=== PATIENT | female | born 1935 | race Caucasian/White ===

== ENCOUNTER → 2018-03-08 12:11 | Outpatient (CLI) | payer MEDICARE ==
[~2018-03-08 12:11] MED LIST: BAYER CHEWABLE81 MG PO; CARTIA XT120 MG PO; COMBIGAN OPHT DR5 ML EACH EYE; FUROSEMIDE20 MG PO; K-TAB10 MEQ PO; MULTI-DAY VITAM1 TAB PO; PACERONE200 MG PO; PLAVIX75 MG PO; PRINIVIL20 MG PO; TRUSOPT 2 % OPT10 ML EACH EYE; XALATAN 0.0052.5 ML EACH EYE
[2018-03-11 10:50] VITALS: BMI 21.6
== END | disposition home or self-care (01) ==
LOC: D.CT 12:00
DX: R79.1 Abnormal coagulation profile (principal)

== ENCOUNTER → 2018-03-11 09:37 | Outpatient (CLI) | payer MEDICARE ==
[~2018-03-11] VITALS: Ht 165.1 cm; Wt 59.1 kg
--- NOTE | ~2018-03-11 | OP ---
PATIENT NAME: ALEN MCKINLEY MEDICAL RECORD: [id number] :33 LOCATION:D.CAT ADMISSION DATE: SURGEON: SILAS COLES MD DATE OF OPERATION: 03/11/2018 PROCEDURES: 1. PTCA stent LAD. 2. Left heart catheterization. 3. Selective coronary angiography. 4. Left ventriculogram. INDICATION: Angina and coronary artery disease. PROCEDURE IN DETAIL: After informed consent was obtained and after a detailed description of the risks, benefits as well as alternative therapies, the patient elected to proceed with angiogram and angioplasty. The right femoral area was prepped and draped in normal sterile fashion. Right femoral artery was cannulated via modified Seldinger technique with placement of 6-Romansh sheath. All catheters exchanged through this sheath. FINDINGS: Left ventriculogram was performed in standard 30-degree REED view, reveals good cardiac wall motion throughout all segments. Overall ejection fraction estimated at 50%. SELECTIVE CORONARY ANGIOGRAPHY: 1. Left main is with no significant angiographic disease. 2. Left anterior descending has 80% stenosis in mid vessel. 3. Left circumflex has moderate irregularities, but no flow-limiting stenosis. 4. Right coronary artery has moderate irregularities, but no flow-limiting stenosis. PTCA STENT OF THE LAD: The stent used was a 2.5 x 14 mm Integrity. Result was 0% residual stenosis. OVERALL IMPRESSION: Successful percutaneous transluminal coronary angioplasty stent of the left anterior descending going from 80% initial stenosis to 0% residual. TRANSINT:[id number] Voice Confirmation ID: [id number] DOCUMENT ID: [id number] SILAS COLES MD at 1025 CC: [id number] DICTATION DATE: 03/11/18 1257 RECTIFICATION PRINTER: 03/11/18 1304 DEP CLI 03/11/18 [place] [address]
--- NOTE | ~2018-03-11 | HEMODYNAMI ---
PATIENT:ALEN MCKINLEY MEDICAL RECORD: [id number] : 33 LOCATION:DFLAKITA ADMISSION DATE: 03/11/18 Generatedon:03/11/201813:01 Patient name: ALEN MCKINLEY Patient #: [id number] SSN: : 1935 Date of study: 03/11/2018 Page: Of Hemodynamic Procedure Report Patient Data Patient Demographics Procedure consent was obtained First Name: ALEN Gender: Female Last Name: ARLEN : 1935 [facility] Initial: GABY Age: 82 year(s) Patient #: [id number] Race: Unknown Additional ID: [id number] Contact details [address]: [address] [place] [address] State: [place] City: [place] Zip code: [address] Admission Admission Data Admission Date: 03/11/2018 Admission Time: 9:37 Lab Results Lab Result Date: 03/11/2018 Lab Result Time: 0:00 Biochemistry Name Units Result Min Max BUN mg/dl 16 --(---*)-- 7 18 Creatinine mg/dl 0.8 --(-*--)-- 0.6 1.3 CBC Name Units Result Min Max Hemoglobin g/dl 12.4 *-(----)-- 13.5 17.5 Procedure Procedure Types Cath Procedure Diagnostic Procedure [facility] w/Coronaries Sedation Charges Moderate Sedation up to 15 minutes PCI Procedure Coronary Stent Coronary Stent Initial Procedure Description Procedure Date Procedure Date: 03/11/2018 Procedure Start Time: 12:34 Procedure End Time: 12:57 Procedure Staff Name Function Alverto Kelly MD Performing Physician Marquis Stein RN Handicapped Teacher Valentina Thorne RT Monitor Kayleigh Smith RT Scrub Jessica Rm RN Nurse Tom Fung RT Handicapped Teacher Procedure Data Cath Procedure Fluoroscopy Diagnostic fluoroscopy Total fluoroscopy Time: 8.4 time: 8.4 min min Diagnostic fluoroscopy Total fluoroscopy dose: dose: 1130 mGy 1130 mGy Contrast Material Contrast Material Type Amount (ml) Isovue 300 146 Entry Location Entry Primary Successful Side Size Upsize Upsize Entry Closure Ledesma ccessful Closure Location (Fr) 1 (Fr) 2 (Fr) Remarks Device Remarks Radial Right 6 Fr Mechanical artery Short Compression Femoral Right 6 Fr Exoseal artery Short Estimated blood loss: 5 ml Diagnostic catheters Device Type Used For End Catheter Placement DIAGNOSTIC Hondo 110cm 5 Multi-vessel Fr catheter ([id number]) Angiography Procedure Complications No complications Procedure Medications Medication Administration Route Dosage Oxygen etCO2 Nasal cannula 2 l/min Lidocaine 2% added to field 20 Heparin Flush Bag added to field 2 bags (1000units/500ml NS) 0.9% NaCl I.V. 100 ml/hr Versed I.V. 0.5 mg Fentanyl I.V. 25 mcg Radial Cocktail I.A. 1 syringe (Verapomil 2mg/Nitro 400mcg/Heparin 1500units) Heparin Bolus I.V. 4000 units Integrilin (Bolus I.V. 5 ml 2mg/ml) Plavix P.O. 600 mg Hemodynamics Rest HGB: 12.4 (g/dl) Heart Rate: 97 (bpm) Snapshots Pre Cath Intra NCS Post Cath Vital Signs Time Heart Resp SPO2 etCO2 NIBP (mmHg) Rhythm Pain Sedation Rate (ipm) (%) (mmHg) Status Level (bpm) 12:20:41 100 34 89 0 164/106(130) A-Fib 0 (11) 10(A) , No pain 12:24:49 101 18 91 24.1 161/115(135) A-Fib 0 (11) 10(A) , No pain 12:28:57 88 26 96 0 158/101(139) A-Fib 0 (11) 10(A) , No pain 12:33:03 97 20 94 0.7 152/97(130) A-Fib 0 (11) 9(A) , No pain 12:37:13 84 20 92 0 137/79(115) A-Fib 0 (11) 9(A) , No pain 12:41:17 87 18 92 0 128/84(102) A-Fib 0 (11) 9(A) , No pain 12:45:18 82 18 92 0 132/82(114) A-Fib 0 (11) 9(A) , No pain 12:49:18 86 20 92 0 134/87(111) A-Fib 0 (11) 9(A) , No pain 12:53:20 84 21 93 0 132/80(104) A-Fib 0 (11) 9(A) , No pain 12:57:21 89 17 92 0 139/85(96) A-Fib 0 (11) 10(A) , No pain Medications Time Medication Route Dose Verified Delivered Reason Not es Effectiveness by by 12:19:51 Oxygen etCO2 2 l/min Alverto Lopez used for Nasal Leticia Rm RN procedure cannula 12:19:59 Lidocaine 2% added 20ml Alverto Del Toro for local to vial Leticia Kelly MD anesthetic field 12:20:04 Heparin Flush added 2 bags Alverto Del Toro used for Bag to Leticia Kelly MD procedure (1000units/500ml field NS) 12:20:12 0.9% NaCl I.V. 100 Alverto Lopez Per physician ml/hr Leticia Rm RN 12:28:37 Versed I.V. 0.5 mg Alverto Lopez for sedation Leticia Rm RN 12:28:48 Fentanyl I.V. 25 mcg Alverto Lopez for sedation Leticia Rm RN 12:31:22 Radial Cocktail I.A. 1 Alverto Del Toro for (Verapomil syringe Leticia Kelly MD vasodilation 2mg/Nitro 400mcg/Heparin 1500units) 12:38:43 Heparin Bolus I.V. 4000 Alverto Lopez for jeremiah ified units Leticia Rm RN anticoagulation with dr kelly 12:41:38 Integrilin I.V. 5 ml Alverto Lopez for was anika 5 (Bolus 2mg/ml) Leticia Rm RN antiplatelet ml of therapy vial 12:58:43 Plavix P.O. 600 mg Alverto Lopez for Leticia Rm RN antiplatelet therapy Procedure Log Time Note 12:11:54 Marquis Stein RN sent for patient. Start room use. 12:11:56 Time tracking: Regular hours (M-F 7:00 - 5:00) 12:12:06 Plan of Care:Hemodynamics will remain stable., Cardiac rhythm will remain stable., Comfort level will be maintained., Respiratory function will remain adequate., Patient/ family verbilizes understanding of procedure., Procedure tolerated without complication., Recovers from procedure without complications.. 12:12:11 Patient received from Pre/Post Procedure Room to CCL 2 Alert and oriented. Esausferred to table in Supine position. 12:12:12 Warm blankets applied, and skip hugger turned on for patient comfort. 12:12:13 Correct patient and procedure confirmed by team. 12:12:14 Signed procedure consent form obtained from patient. 12:12:15 ECG and BP/O2 sat monitors applied to patient. 12:19:41 Vital chart was started 12:19:51 Oxygen 2 l/min etCO2 Nasal cannula was administered by Jessica Rm RN; used for procedure; 12:19:59 Lidocaine 2% 20ml vial added to field was administered by Alverto Kelly MD; for local anesthetic; 12:20:04 Heparin Flush Bag (1000units/500ml NS) 2 bags added to field was administered by Alverto Kelly MD; used for procedure; 12:20:12 0.9% NaCl 100 ml/hr I.V. was administered by Jessica Rm RN; Per physician; 12:23:08 Baseline sample Acquired. 12:23:12 Rhythm: atrial fibrillation 12:23:14 Full Disclosure recording started 12::23 H&P Date Dictated: 03/11/2018 Within 30 days and on chart., H&P Addendum completed by physician on day of procedure. (MUST COMPLETE FOR ALL OUTPATIENTS). 12:23:25 Pre-procedure instructions explained to patient. 12:23:25 Pre-op teaching completed and patient verbalized understanding. 12:23:26 Family in waiting room. 12:23:29 Patient NPO since Midnight. 12:23:31 Is the patient allergic to Iodine/contrast media? No. 12:23:32 Was the patient premedicated? No 12:23:33 Is patient on blood thinner?No 12:23:34 Patient diabetic? No. 12:23:37 Previous problem with sedation/anesthesia? No ? 12:23:38 Snore? Yes 12:23:39 Sleep apnea? No 12:23:40 Deviated septum? No 12:23:41 Opens mouth fully? Yes 12:23:41 Sticks out tongue? Yes 12:23:43 Airway obstruction? No ? 12:23:45 Dentures? No ? 12:23:48 Pre procedure: left dorsailis pedis pulse 2+ Normal; easily identifiable; not easily obliterated 12:23:50 Pre procedure: right dorsailis pedis pulse 2+ Normal; easily identifiable; not easily obliterated 12::52 Patient pain scale 0/10 ?. 12::29 IV patent on arrival in left forearm with 0.9% NaCl at [facility]. 12::30 Lab results completed and on chart. 12::35 Right Radial & Right Groin area was prepped with chlora-prep and draped in sterile fashion 12::36 Alarms reviewed by R. N. 12:: Sharps counted by scrub and verified by R.N. 12:: Lab Result : Hemoglobin 12.4 g/dl 12:: Lab Result : Creatinine 0.8 mg/dl 12:: Lab Result : BUN 16 mg/dl :: Physician arrived --------ALL STOP TIME OUT------ : Final Timeout: patient, procedure, and site verified with staff and physician. All members of the team are in agreement. 12:: Right Radial & Right Groin site verified by team. 12:: Physical assessment completed. ASA score P 2 - A patient with mild systemic disease as per Alverto Kelly MD. 12::32 Sedation plan: IV Moderate Sedation Medication:Versed, Fentanyl 12::37 Versed 0.5 mg I.V. was administered by Jessica Rm RN; for sedation; 12::48 Fentanyl 25 mcg I.V. was administered by Jessica Rm RN; for sedation; 12:31:22 Radial Cocktail (Verapomil 2mg/Nitro 400mcg/Heparin 1500units) 1 syringe I.A. was administered by Alverto Kelly MD; for vasodilation; 12::23 Procedure started. 12:34:28 Local anesthetic to right radial artery with Lidocaine 2% by Alverto Kelly MD.INITIAL ACCESS ONLY 12:34:37 A 6 Fr Short sheath was inserted into the Right Radial artery 12:34:44 Use device set Radial Dx or PCI 12:34:45 ACIST Syringe (14800) opened to sterile field. 12:34:45 Medline Cath Pack ([id number]) opened to sterile field. 12:34:46 Bag Decanter (2002) opened to sterile field. 12:34:46 DIAGNOSTIC WIRE .035 260cm J wire (054940) opened to sterile field. 12:34:47 ACIST Hand Control (24775) opened to sterile field. 12:34:47 ACIST Manifold (91781) opened to sterile field. 12:34:48 Tegaderm 4 x 4 (1626W) opened to sterile field. 12:34:48 MBrace Wrist Support ([id number]) opened to sterile field. 12:34:50 SHEATH 6FR Slender (78-9170) opened to sterile field. 12:34:53 A DIAGNOSTIC Hondo 110cm 5 Fr catheter (625253) was advanced over the wire and used for Multi-vessel Angiography. 12:35:05 LV gram done using REED 12:35:08 Injector settings: Ml/sec: 5, Volume: 15, 12:35:10 LV hemodynamics recorded. 12:35:21 EF : 60 % 12:35:24 LCA angiography performed. 12:35:27 Injector settings: Ml/sec: 3, Volume: 6, 12:36:06 RCA angiography performed. 12:36:09 Injector settings: Ml/sec: 3, Volume: 6, 12:36:57 Catheter removed. 12:36:58 Proceeding to intervention. 12:37:12 CHOICE PT Extra Support 182cm wire ([id number]) opened to sterile field. 12:37:12 INFLATOR Merit BasixCompak (EV7626) opened to sterile field. 12:37:22 GUIDE 6FR XBLAD 3.5 catheter ([id number]) opened to sterile field. 12:37:36 6 Fr xblad 3.5 guide catheter was inserted over the wire 12:38:10 choice pt wire advanced. 12:38:43 Heparin Bolus 4000 units I.V. was administered by Jessica Rm RN; for anticoagulation; verified with dr kelly 12:41:01 Wire removed. 12:41:07 Guide Catheter removed. unable to cannulate vessel. 12:41:20 GUIDE 6FR XBC 3 ([id number]) opened to sterile field. 12:41:29 6 Fr xbc guide catheter was inserted over the wire 12:41:38 Integrilin (Bolus 2mg/ml) 5 ml I.V. was administered by Jessica Rm RN; for antiplatelet therapy; wasted 5 ml of vial 12:41:43 choice pt wire advanced. 12:43:50 Wire removed. 12:44:07 WHISPER 190cm wire ([id number]) opened to sterile field. 12:45:50 whisper wire advanced. 12:45:55 Wire removed. 12:46:08 Guide Catheter removed. unable to cannulate vessel. 12:47:09 GUIDE 6FR JL 3.5 guide catheter ([id number]) opened to sterile field. 12:47:26 Local anesthetic to right femoral artery with Lidocaine 2% by Alverto Kelly MD.ADDITIONAL ACCESS 12:47:34 A 6 Fr Short sheath was inserted into the Right Femoral artery 12:47:42 SHEATH 6FR [place] (HOE854) opened to sterile field. 12:48:19 6 Fr jl 3.5 guide catheter was inserted over the wire 12:49:48 whisper wire advanced. 12:51:12 Wire advanced across lesion. 12:52:43 Place stent Inflation Number: 1 A INTEGRITY RX 2.5 x 14 stent ([id number]) was prepped and advanced across the Mid LAD. The stent was deployed at 15 BERTHA for 0:10 (min:sec). 12:53:12 Stent catheter was removed intact over wire. 12:53:14 Wire removed. 12:53:14 Guide catheter removed. 12:53:22 TR BAND Standard ([id number]) opened to sterile field. 12:53:23 EXOSEAL 6Fr (EX600) opened to sterile field. 12:53:38 Sheath removed intact; hemostasis achieved with Exoseal to the Right Femoral artery. 12:53:46 Sheath removed intact; hemostasis achieved with Mechanical Compression to the Right Radial artery. 12:53:48 Procedure ended.(Physican Out) 12:55:12 Fluoroscopy time 08.40 minutes. 12:55:16 Fluoroscopy dose: 1130 mGy 12:55:16 Flurop Dose total: 1130 12:55:20 Contrast amount:Isovue 300 146ml. 12:55:22 Sharps counted by scrub and verified by R.N. 12:55:26 TR band inflated with 10cc of air. 12:55:27 Insertion/operative site no bleeding no hematoma. 12:55:35 Post right radial artery:stable 12:55:38 Post-op/insertion site Right Femoral artery dressed using a 4 x 4 and Tegaderm. 12:55:41 Post Procedure Pulses reassessed and unchanged 12:56:16 Post procedure rhythm: unchanged. 12:56:19 Estimated blood loss: 5 ml 12:56:21 Post procedure instruction explained to patient.Patient verbalizes understanding. 12:56:21 Patient needs reinforcement of post procedure teaching. 12:56:33 Procedure type changed to Cath procedure, Diagnostic procedure, LHC, LHC w/Coronaries, Sedation Charges, Moderate Sedation up to 15 minutes, PCI procedure, Coronary Stent, Coronary Stent Initial 12:56:34 Procedure and supply charges have been captured, reviewed, submitted and are correct. 12:56:39 Procedure Complication : No complications 12:56:42 Vital chart was stopped 12:56:42 See physician's report for complete and final results. 12:57:02 Report given to Pre/Post Procedure Room. 12:57:05 Patient transfered to Pre/Post Procedure Room with Stretcher. 12:57:08 Procedure ended. 12:57:08 Full Disclosure recording stopped 12:57:16 ACC-PCI Only Patient was given prescriptions, or instructed by Alverto Kelly MD to start/continue the following medications upon discharge: Plavix 12:57:18 End room use (Document Last) 12:58:43 Plavix 600 mg P.O. was administered by Jessica Rm RN; for antiplatelet therapy; Intervention Summary Intervention Notes Time ActionType Lesion and Equipment Action# Pressure Duration Attributes Used 12:52:43 Place stent Mid LAD INTEGRITY RX 1 15 00:10 2.5 x 14 stent ([id number]) Device Usage Item Name Manufacture Quantity Catalog Number Hospital Part Current [facility] Lot# / Charge Number Stock Stock Serial# Code ACIST Acist 1 45943 814038 818450 335687 20 Syringe blabfeed (67484) Systems Inc Medline Cath Medline 1 [id number] 591421 54806 860717 5 Pack ([id number]) Bag Decanter Microtek 1 452342 09385 380204 5 () Medical Inc. DIAGNOSTIC St Sarbjit 1 319508 887002 010853 617012 30 WIRE .035 260cm J wire (891000) ACIST Hand Acist 1 75415 170532 780747 143602 5 Control Medical (79728) Systems Inc ACIST Acist 1 78297 800572 569253 580503 5 Flashnotes Medical (96156) Systems Inc Tegaderm 4 x 3M 1 1626W 014682 823317 225806 5 4 (1626W) MBrace Wrist Advanced 1 140-0250-00 355558 45857 408815 5 Support Vascular ([id number]) Dynamics SHEATH 6FR Terumo 1 [id number] 287575 760101 812429 40 Slender (80-1060) DIAGNOSTIC Terumo 1 40-5013 374738 728993 411012 5 Hondo 110cm 5 Fr catheter (199444) CHOICE PT Frederick 1 [id number] 732970 929932 374936 5 Extra Scientific Support 182cm wire (7258711T1) INFLATOR Merit 1 MZ3641 159640 965530 940235 15 [employer] Medical BasixCompak (NV1615) GUIDE 6FR Cardinal 1 [id number] 137996 952118 648993 10 XBLAD 3.5 Health catheter (34614239) GUIDE 6FR Cardinal 1 [id number] 442679 48338 420487 5 XBC 3 Health (22627198) WHISPER Montaño 1 [id number] 216578 147781 029350 5 190cm wire Vascular ([id number]) GUIDE 6FR JL Medtronic 1 [id number] 568761 21496 829322 1 3.5 guide catheter (CU8BT43) SHEATH 6FR Terumo 1 BPE841 704858 053044 961250 40 [place] (KYQ743) INTEGRITY RX Medtronic 1 [id number] 023668 015241 032320 5 [id number] 2.5 x 14 stent ([id number]) TR BAND Terumo 1 [id number] 793813 246479 086494 40 Standard ([id number]) EXOSEAL 6Fr Cardinal 1 EX600 817370 419104 225229 10 (EX600) Health Signature Audit [place] Stage Time Signature Unsigned Intra-Procedure 03/11/2018 Kayleigh Smith 1:01:38 PM RT(R) Signatures Monitor : Valentina Thorne Signature : RT Date : Time : [place] [address] [place] [address]
[2018-03-11 10:43] LABS: BASOPHILS 0.6 % (0-2); EOSINOPHILS 5.3 % (0-7); HEMATOCRIT 38.8 % (36.0-48.0); HEMOGLOBIN 12.4 g/dL (12-16); IMMATURE GRANULOCYTES 0.1 % (0-5); LYMPHOCYTES 11.4 % (15-50); MCH 28.6 pg (26.0-34.0); MCV 89.6 fL (80.0-100.0); MEAN PLATELET VOLUME 10.1 fL (7.4-10.4); MONOCYTES 8.3 % (2-11); NEUTROPHILS 74.3 % (40-80); PLATELET COUNT 307 10x3/uL (130-400); RBC 4.33 10x6/uL (4.00-5.40); RDW 13.5 % (11.5-14.5)
[2018-03-11 10:50] VITALS: BP 148/72; Ht 165.1 cm; Wt 59.1 kg
[2018-03-11 10:55] LABS: ANION GAP 12.5 mmol/L (8-16); CALCIUM 8.7 mg/dL (8.5-10.1); CARBON DIOXIDE 27.8 mmol/L (21.0-32.0); CREATININE - SERUM 0.8 mg/dL (0.6-1.3); POTASSIUM - SERUM 4.3 mmol/L (3.5-5.1)
== END | disposition home or self-care (01) ==
LOC: D.CATH 09:37
PROVIDERS: Internal Medicine Interventional Cardiology
DX: I25.119 Atherosclerotic heart disease of native coronary artery with unspecified angina pectoris (principal); Z01.812 Encounter for preprocedural laboratory examination

== ENCOUNTER 2018-05-27 09:57 | Outpatient (CLI) | payer MEDICARE ==
[~2018-05-27] VITALS: Ht 160 cm; Wt 54.5 kg
--- NOTE | ~2018-05-27 | HEMODYNAMI ---
PATIENT:ALEN MCKINLEY MEDICAL RECORD: [id number] : 33 LOCATION:[facility] ADMISSION DATE: 05/27/18 Generatedon:05/27/201811:48 Patient name: ALEN MCKINLEY Patient #: [id number] SSN: : 1935 Date of study: 05/27/2018 Page: Of Hemodynamic Procedure Report Patient Data Patient Demographics Procedure consent was obtained First Name: ALEN Gender: Female Last Name: ARLEN : 1935 [facility] Initial: GABY Age: 83 year(s) Patient #: [id number] Race: Unknown Additional ID: [id number] Contact details Address: [address] [place] [address] State: [place] City: [place] Zip code: [address] Past Medical History Allergies: No known allergies Admission Admission Data Admission Date: 05/27/2018 Admission Time: 9:57 Admit Source: Other Height (in.): 64 BSA: 1.6 (m2) Height (cm.): 162.56 BMI: 21.28 (kg/m2) Weight (lbs.): 124 Weight (kg.): 56.25 Lab Results Lab Result Date: 05/27/2018 Lab Result Time: 10:33 Biochemistry Name Units Result Min Max BUN mg/dl 27 --(----)-* 7 18 Creatinine mg/dl 1.1 --(--*-)-- 0.6 1.3 CBC Name Units Result Min Max Hematocrit % 44.5 --(*---)-- 42 54 Hemoglobin g/dl 14.4 --(*---)-- 13.5 17.5 Procedure Procedure Types Cath Procedure Diagnostic Procedure Cardioversion External Procedure Description Procedure Date Procedure Date: 05/27/2018 Procedure Start Time: 11:40 Procedure End Time: 11:46 Procedure Staff Name Function Alverto Kelly MD Performing Physician Steve Esteban RT Monitor Alyce Wood RT Direct Care Provider Jessica Rm RN Nurse Kaushik Aragon MD Additional personnel Tom Fung RT Direct Care Provider Procedure Data Cath Procedure Fluoroscopy Diagnostic fluoroscopy Total fluoroscopy Time: 0 time: 0 min min Diagnostic fluoroscopy Total fluoroscopy dose: 0 dose: 0 mGy mGy Contrast Material Contrast Material Type Amount (ml) Isovue 300 0 Estimated blood loss: 0 ml Procedure Complications No complications Procedure Medications Medication Administration Route Dosage Oxygen etCO2 Nasal cannula 2 l/min Refer to Anesthesia Notes for Sedation Medications Hemodynamics Rest BSA: 1.6 (m2) O2 Consumption: Estimated: 217.6 (ml/min) O2 Consumption indexed: Estimated:136 (ml/min/m) Pre Cath Intra NCS Post Cath Vital Signs Time Heart Resp SPO2 etCO2 NIBP (mmHg) Rhythm Pain Sedation Rate (ipm) (%) (mmHg) Status Level (bpm) 11:35:59 69 10 96 0 129/72(116) A-Fib 0 (11) 10(A) , No pain 11:40:07 69 15 97 31.8 125/67(110) SB 0 (11) 9(A) , No pain 11:44:14 46 17 99 0 113/55(89) SB 0 (11) 9(A) , No pain 11:45:26 48 20 99 14.4 127/60(99) SB 0 (11) 10(A) , No pain Medications Time Medication Route Dose Verified Delivered Reason Notes Effective ness by by 11:42:58 Oxygen etCO2 2 Alverto Lopez used for Nasal l/min Leticia Rm semiconductor assembler cannula 11:43:02 Refer to Alverto Lopez Anesthesia Leticia Rm RN Notes for Sedation Medications Procedure Log Time Note 11:29:35 Informed consent obtained and on chart 11:29:38 Admit Source: Other 11:29:54 Diagnostic Cath status Elective 11:30:12 Tom Fung RT(R) sent for patient. Start room use. 11:30:13 Time tracking: Regular hours (M-F 7:00 - 5:00) 11:30:16 Plan of Care:Hemodynamics will remain stable., Cardiac rhythm will remain stable., Comfort level will be maintained., Respiratory function will remain adequate., Patient/ family verbilizes understanding of procedure., Procedure tolerated without complication., Recovers from procedure without complications.. 11:30:24 H&P Date Dictated: 05/06/2018 Within 30 days and on chart., H&P Addendum completed by physician on day of procedure. (MUST COMPLETE FOR ALL OUTPATIENTS). 11:32:51 Patient arrived from Pre/Post Procedure Room to CCL 2. Patient remains on bed/stretcher for procedure. 11:32:57 Warm blankets applied, and skip hugger turned on for patient comfort. 11:32:57 Correct patient and procedure confirmed by team. 11:33:10 Patient Height : 64 inches 11:33:13 Patient Weight : 124 lbs 11:33:21 Patient allergic to No known allergies 11:34:47 ECG and BP/O2 sat monitors applied to patient. 11:34:48 Vital chart was started 11:36:33 Rhythm: atrial fibrillation 11:36:35 Full Disclosure recording started 11:36:35 Pre-procedure instructions explained to patient. 11:36:37 Family in waiting room. 11:36:38 Patient NPO since Midnight. 11:36:40 Is the patient allergic to Iodine/contrast media? No. 11:36:51 Is patient on blood thinner?Yes 11:36:54 ACC The patient was administered the following blood thiners within the last 24 hours: Xarelto 11:37:09 Patient diabetic? No. 11:37:12 Previous problem with sedation/anesthesia? No ? 11:37:14 Snore? No 11:37:14 Sleep apnea? No 11:37:15 Deviated septum? No 11:37:16 Opens mouth fully? Yes 11:37:16 Sticks out tongue? Yes 11:37:21 Airway obstruction? Yes ASTHMA 11:37:27 Dentures? No ? 11:37:40 IV patent on arrival in left antecubital with 0.9% NaCl at [facility]. 11:38:14 Lab Result : BUN 27 mg/dl 11:38:14 Lab Result : Hemoglobin 14.4 g/dl 11:38:14 Lab Result : Creatinine 1.1 mg/dl 11:38:14 Lab Result : Hematocrit 44.5 % 11:38:16 Lab results completed and on chart. 11:38:24 Quick Combo opened to sterile field. 11:38:29 Quick combo pads placed on patients chest and back. 11:38:34 Alarms reviewed by R. N. 11:38:44 Kaushik Aragon MD present and monitoring patient for TIVA. 11:40:19 Physician arrived 11:40:19 --------ALL STOP TIME OUT------ 11:40:19 Final Timeout: patient, procedure, and site verified with staff and physician. All members of the team are in agreement. 11:40:24 Fire Safety Assessment: C--Open oxygen or nitrous oxide is being used. 11:40:27 Physical assessment completed. ASA score P 3 - A patient with severe systemic disease as per Alverto Kelly MD. 11:40:31 Sedation plan: TIVA Medication:Propofol 11:40:33 Procedure started. 11:40:36 Defibrillator synced and charged to 275 Joules. 11:40:50 Shock delivered. 11:41:13 Procedure ended.(Physican Out) 11:42:04 Patient cardioverted to sinus bradycardia. 11:42:21 Fluoroscopy time 00.00 minutes. 11:42:26 Fluoroscopy dose: 0 mGy 11:42:26 Flurop Dose total: 0 11:42:28 Contrast amount:Isovue 300 0ml. 11:42:58 Oxygen 2 l/min etCO2 Nasal cannula was administered by Jessica Rm RN; used for procedure; 11:43:02 Refer to Anesthesia Notes for Sedation Medications was administered by Jessica Rm RN; ; 11:43:03 Post-procedure physical assessment completed. ASA score P 3 - A patient with severe systemic disease as per Alverto Kelly MD. 11:43:06 Post procedure rhythm: sinus bradycardia 11:43:08 Estimated blood loss: 0 ml 11:43:09 Post procedure instruction explained to patient.Patient verbalizes understanding. 11:43:10 Patient needs reinforcement of post procedure teaching. 11:43:21 Procedure and supply charges have been captured, reviewed, submitted and are correct. 11:43:23 Procedure Complication : No complications 11:43:44 See physician's report for complete and final results. 11:43:57 Report given to Pre/Post Procedure Room. 11:46:11 Patient transfered to Pre/Post Procedure Room with Stretcher. 11:46:12 Procedure ended. 11:46:12 Full Disclosure recording stopped 11:46:20 End room use (Document Last) 11:48:52 Vital chart was stopped Device Usage Item Manufacture Quantity Catalog Hospital Part Current Minimal Lot# / Name Number Charge Number Stock Stock María al# Code BookNow 1 [id number] Combo Signature Audit [place] Stage Time Signature Unsigned Intra-Procedure 05/27/2018 Steve Esteban 11:48:48 AM RT(R) Signatures Monitor : Steve Esteban RT Signature : Date : Time : [address] [address]
[2018-05-27] MEDS ORDERED: XARELTO20 MG PO (10:18)
[2018-05-27 10:27] VITALS: BP 148/72; Ht 160 cm; Wt 54.5 kg
[2018-05-27 10:37] LABS: BASOPHILS 0.7 % (0-2); EOSINOPHILS 4.9 % (0-7); HEMATOCRIT 44.5 % (36.0-48.0); HEMOGLOBIN 14.4 g/dL (12-16); IMMATURE GRANULOCYTES 0.2 % (0-5); LYMPHOCYTES 13.6 % (15-50); MCH 28.2 pg (26.0-34.0); MCHC 32.4 g/dL (31.0-37.0); MCV 87.3 fL (80.0-100.0); MEAN PLATELET VOLUME 10.4 fL (7.4-10.4); MONOCYTES 6.2 % (2-11); NEUTROPHILS 74.4 % (40-80); PLATELET COUNT 315 10x3/uL (130-400); WBC 8.5 10x3/uL (4.8-10.8)
[2018-05-27 10:55] LABS: ANION GAP 13.6 mmol/L (8-16); CALCIUM 9.1 mg/dL (8.5-10.1); CARBON DIOXIDE 26.2 mmol/L (21.0-32.0); CREATININE - SERUM 1.1 mg/dL (0.6-1.3); POTASSIUM - SERUM 4.8 mmol/L (3.5-5.1)
[2018-05-27 10:57] LABS: INR 1.95 (0.85-1.17); PROTIME 21.6 SECONDS (11.6-15.0)
--- NOTE | 2018-05-27 12:15 | NUR ---
PT RESTING COMFORTABLY. VSS. PT STILL IN SINUS BRADYCARDIA.
--- NOTE | 2018-05-27 12:45 | NUR ---
PT SINUS ADAIR ON MONITOR. BP STABLE. FAMILY AT BEDSIDE.
--- NOTE | 2018-05-27 12:56 | NUR ---
DR. COLES ROUNDED AND SPOKE WITH PT AND PT'S FAMILY. THEY VOICED UNDERSTANDING. RIGHT FA PIV D/C'D WITH CATH TIP INTACT. PT INSTRUCTED TO GET UP AND DRESSED.
--- NOTE | 2018-05-27 13:10 | NUR ---
DISCUSSED DISCHARGE INSTRUCTIONS WITH PT AND PT'S FAMILY. THEY VOICED UNDERSTANDING.
--- NOTE | 2018-05-27 13:15 | NUR ---
PT TAKEN OUT BY WHEELCHAIR. NO S/S OF DISTRESS NOTED. ALL BELONGINGS AND PAPERWORK IN HAND.
--- NOTE | 2018-06-04 11:18 | OP ---
PATIENT NAME: ALEN MCKINLEY MEDICAL RECORD: [id number] :33 LOCATION:D.CAT ADMISSION DATE: SURGEON: SILAS COLES MD DATE OF OPERATION: 05/27/2018 DATE OF SERVICE: 05/27/2018 PROCEDURE: DC cardioversion. INDICATION: Atrial fibrillation. PROCEDURE IN DETAIL: IV conscious sedation was performed per anesthesia. Continuous heart rate, O2 saturation, blood pressure monitoring all undertaken, all of which remains stable. She received 1 shock at 275 joules restoring sinus rhythm. OVERALL IMPRESSION: Successful DC cardioversion from atrial fibrillation to sinus rhythm. TRANSINT:[id number] Voice Confirmation ID: [id number] DOCUMENT ID: [id number] SILAS COLES MD at 1118 CC: [id number] DICTATION DATE: 05/27/18 1142 QA DEVELOPER: 05/27/18 1205 DEP CLI 05/27/18 [address] [place] [address]
== END 2018-05-27 13:15 | disposition home or self-care (01) ==
LOC: D.CATH 09:57
PROVIDERS: Internal Medicine Interventional Cardiology
DX: I48.91 Unspecified atrial fibrillation (principal); Z01.812 Encounter for preprocedural laboratory examination

== ENCOUNTER 2019-02-10 16:55 | Inpatient (IN) | payer MEDICARE ==
[~2019-02-10] VITALS: Ht 160 cm; Wt 61.2 kg
[~2019-02-10 16:55] MED LIST changes: +XARELTO20 MG PO
[2019-02-10 18:00] LABS: BASOPHILS 0.1 % (0-2); EOSINOPHILS 0.2 % (0-7); HEMATOCRIT 42.5 % (36.0-48.0); IMMATURE GRANULOCYTES 0.4 % (0-5); LYMPHOCYTES 5.2 % (15-50); MCH 31.2 pg (26.0-34.0); MCHC 32.9 g/dL (31.0-37.0); MCV 94.7 fL (80.0-100.0); MEAN PLATELET VOLUME 10.6 fL (7.4-10.4); MONOCYTES 6.1 % (2-11); PLATELET COUNT 284 10x3/uL (130-400); RBC 4.49 10x6/uL (4.00-5.40); RDW 13.6 % (11.5-14.5); WBC 19.9 10x3/uL (4.8-10.8)
[2019-02-10 18:08] LABS: APTT 34.3 SECONDS (22.8-39.4); INR 1.18 (0.85-1.17); PROTIME 14.5 SECONDS (11.6-15.0)
[2019-02-10 18:09] LABS: CALCIUM 9.5 mg/dL (8.5-10.1); CARBON DIOXIDE 25.7 mmol/L (21.0-32.0); CREATININE - SERUM 1.2 mg/dL (0.6-1.3); POTASSIUM - SERUM 4.7 mmol/L (3.5-5.1)
[2019-02-10 18:15] LABS: ALBUMIN 3.9 g/dL (3.4-5.0); BILIRUBIN - TOTAL 0.9 mg/dL (0.2-1.3); PROTEIN - SERUM 7.8 g/dL (6.4-8.2)
[2019-02-10 19:28] LABS: AMYLASE - SERUM 62 U/L (25-115); LIPASE 107 U/L (73-393)
[2019-02-10 19:40] VITALS: BP 182/81
--- NOTE | 2019-02-10 19:44 | NUR ---
OCCULT STOOL POSITIVE, EDP TAD NOTIFIED.
--- NOTE | 2019-02-10 20:24 | NUR ---
URINE SPECIMEN SENT TO LAB.
[2019-02-10 20:34] LABS: APPEARANCE CLEAR (CLEAR); BILIRUBIN NEGATIVE (NEGATIVE); COLOR YELLOW (YELLOW); GLUCOSE NEGATIVE (NEGATIVE); KETONE NEGATIVE (NEGATIVE); NITRITE NEGATIVE (NEGATIVE); PROTEIN NEGATIVE (NEGATIVE); UROBILINOGEN NORMAL (NORMAL)
[2019-02-10 20:35] LABS: BACTERIA MODERATE /hpf (NEGATIVE); EPITHELIAL CELLS 0-5 /hpf (0-5); RED CELLS - URINE 0-5 /hpf (0-5)
--- NOTE | 2019-02-10 20:50 | NUR ---
PT LEFT ED VIA WC FOR CT.
--- NOTE | 2019-02-10 21:05 | NUR ---
PT RETURNED FROM CT VIA WC.
[2019-02-10 23:07] VITALS: BP 180/85; BMI 23.9
--- NOTE | 2019-02-11 01:19 | NUR ---
NO AVAILABLE TELEMENTRY MONITOR AT THIS TIME, WILL NOTIFY WHEN AVAILABLE
[2019-02-11 04:00] VITALS: BP 181/70
[2019-02-11 06:58] LABS: BASOPHILS 0.1 % (0-2); EOSINOPHILS 0.2 % (0-7); HEMATOCRIT 41.6 % (36.0-48.0); HEMOGLOBIN 13.1 g/dL (12-16); IMMATURE GRANULOCYTES 0.2 % (0-5); LYMPHOCYTES 4.5 % (15-50); MCHC 31.5 g/dL (31.0-37.0); MCV 95.4 fL (80.0-100.0); MEAN PLATELET VOLUME 11.1 fL (7.4-10.4); MONOCYTES 5.3 % (2-11); NEUTROPHILS 89.7 % (40-80); PLATELET COUNT 246 10x3/uL (130-400); RBC 4.36 10x6/uL (4.00-5.40); RDW 13.5 % (11.5-14.5); WBC 18.1 10x3/uL (4.8-10.8)
[2019-02-11 07:12] LABS: ALBUMIN 3.3 g/dL (3.4-5.0); ANION GAP 13.9 mmol/L (8-16); BILIRUBIN - TOTAL 0.94 mg/dL (0.2-1.3); CALCIUM 8.7 mg/dL (8.5-10.1); CREATININE - SERUM 0.8 mg/dL (0.6-1.3); MAGNESIUM - SERUM 2.1 mg/dL (1.8-2.4); PHOSPHOROUS 2.5 mg/dL (2.5-4.9); POTASSIUM - SERUM 3.9 mmol/L (3.5-5.1); PROTEIN - SERUM 7.2 g/dL (6.4-8.2)
--- NOTE | 2019-02-11 07:35 | NUR ---
ALERT AND ORIENTED. LUNGS CLEAR BILATERALLY. HEART SOUNDS S1 AND S2 HEARD IN ALL GASTELUM. BOWEL SOUNDS ACTIVE X 4. SKIN INTACT WITHOUT REDNESS. IV TO LFA PATENT WITHOUT REDNESS. BED LOW. FALL PRECAUTIONS IN PLACE. CALL LANCASTER AND PERSONAL ITEMS IN REACH. WILL CONTINUE TO MONITOR.
[2019-02-11 08:27] VITALS: BP 174/78
--- NOTE | 2019-02-11 09:46 | NUR ---
ASSISTED PATIENT TO TOILET. URINE AND SEVERAL DROPS OF BLOOD NOTED INSIDE TOILET BOWEL.
--- NOTE | 2019-02-11 10:37 | NUR ---
RESTING IN BED. DENIES NEEDS. WILL CONTINUE TO MONITOR.
[2019-02-11 17:14] VITALS: BP 176/71
--- NOTE | 2019-02-11 17:30 | NUR ---
ATTEMPTED TO GET TELEMETRY FOR PATIENT. NONE AVAILABLE.
--- NOTE | 2019-02-11 17:51 | NUR ---
TELEMETRY PLACED ON PATIENT. 71 SR.
--- NOTE | 2019-02-11 18:23 | NUR ---
RESTING IN BED. DENIES NEEDS. FALL PRECAUTIONS IN PLACE. BED LOW. CALL LANCASTER AND PERSONAL ITEMS IN REACH.
--- NOTE | 2019-02-11 20:00 | NUR ---
ASSESSMENT PER FLOWSHEET. IV PATENT LEFT ARM OF NS AT 100CC'S/HR. TELM.SHOWS SR 73.CHEPE MAT TO BED.SR UP X2 CALL LIGHT WITHIN REACH.
[2019-02-11 20:24] VITALS: BP 126/81
--- NOTE | 2019-02-11 21:00 | NUR ---
MEDS PER MAR. UP WITH HELP TO DEEPTHI
--- NOTE | 2019-02-11 21:26 | NUR ---
TELM. MT CALLS STATES PT CONVERTED TO UCAF WITH HR 108-130. ASYMTOMATIC.
--- NOTE | 2019-02-12 | NUR ---
EYES CLOSED RESPIRATIONS WITH EASE AND UNLABORED.
--- NOTE | 2019-02-12 00:20 | NUR ---
MT CALLS PATIENT HAS CONVERTED BACK TO SR WITH HR 76-88.
[2019-02-12 01:07] VITALS: BP 126/63
--- NOTE | 2019-02-12 02:57 | NUR ---
UP TO BR WITH HELP VOIDS WELL. ASSISTED BACK TO BED.
[2019-02-12 05:09] VITALS: BP 139/58
[2019-02-12 07:24] LABS: CALC OSMOLALITY 277 mosm/kg (275-300); CALCIUM 7.8 mg/dL (8.5-10.1); CARBON DIOXIDE 23.2 mmol/L (21.0-32.0); CHLORIDE - SERUM 107 mmol/L (98-107); CREATININE - SERUM 0.6 mg/dL (0.6-1.3); GLUCOSE 93 mg/dL (74-106); MAGNESIUM - SERUM 1.6 mg/dL (1.8-2.4); POTASSIUM - SERUM 3.7 mmol/L (3.5-5.1); SODIUM 139 mmol/L (136-145); eGFR NON AFRICAN AMERICAN > 90 mL/min (90-120)
[2019-02-12 07:25] LABS: UREA NITROGEN 12 mg/dL (7-18)
[2019-02-12 07:31] LABS: BASOPHILS 0.2 % (0-2); EOSINOPHILS 1.7 % (0-7); HEMOGLOBIN 11.8 g/dL (12-16); IMMATURE GRANULOCYTES 0.3 % (0-5); LYMPHOCYTES 6.1 % (15-50); MCH 30.4 pg (26.0-34.0); MCHC 31.1 g/dL (31.0-37.0); MEAN PLATELET VOLUME 11.3 fL (7.4-10.4); MONOCYTES 6.4 % (2-11); NEUTROPHILS 85.3 % (40-80); PLATELET COUNT 231 10x3/uL (130-400); RBC 3.88 10x6/uL (4.00-5.40); RDW 13.7 % (11.5-14.5); WBC 15.1 10x3/uL (4.8-10.8)
[2019-02-12 07:44] LABS: MCV 97.9 fL (80.0-100.0)
[2019-02-12 07:59] VITALS: BP 148/65
--- NOTE | 2019-02-12 08:08 | NUR ---
PATIENT RECIEVED RESTING WITH NO NEEDS VOICED, DAUGHTER AT BEDSIDE. CL IN REACH
[2019-02-12 11:39] VITALS: BP 140/70
--- NOTE | 2019-02-12 12:58 | MORECARE ---
CASE MANAGEMENT DISCHARGE SUMMARY PATIENT: PRATIBHA MCKINLEY UNIT: [id number] ADM DATE: 02/10/19 AGE: 83 : 34 SEX: F ROOM/BED: D.2216 AUTHOR: COY DENTON PHYSICIAN: REFERRING PHYSICIAN: WALLY LORA MD DATE OF SERVICE: 02/12/19 Discharge Plan Patient Name: PRATIBHA MCKINLEY Facility: [facility]:[place] : 1935 Planned Disposition: Home Anticipated Discharge Date: 02/13/19 Discharge Date: Expected LOS: 3 Initial Reviewer: [email or web address] Initial Review Date: 02/10/2019 Generated: 02/12/19 1:57 pm Comments DCP- Discharge Planning Updated by [email or web address]: Gloria Og on 02/12/19 11:[address] DC PLAN: Return home alone w/ daughter next door. ANTICIPATED DC NEEDS: Denied dc needs. CM met with patient and two of her daughters to complete initial dc planning assessment. CM educated patient on the CM role and verbal consent given by patient to complete assessment. CM verified patient's address, phone number, and emergency contact phone numbers. Patient lives at home alone but her daughter Domenica lives next door and assists her with her daily needs. At discharge patient plans to return home alone, she and her daughter's feel this is a safe discharge. CM discussed availability of home health, rehab services, and medical equipment. Patient denied known discharge needs at this time. Patient reports her daughter Domenica will transport him/her home at time of discharge. CM will continue to follow and will assist as needed with dc plans/needs. Gloria Og RN, [facility] DCPIA - Discharge Planning Initial Assessment Updated by [email or web address]: Gloria Og on 02/12/19 12:54 pm * Is the patient Alert and Oriented? Yes * How many steps to enter\exit or inside your home? Three * PCP Dr. Grajeda * Pharmacy [facility] in [place] * Preadmission Environment Home Alone * ADLs Partial Dependent * Partial ADLs (Assistance needed) Bathing Medication Management * Equipment Rolling Walker * Other Equipment BP machine * List name and contact numbers for known caregivers / representatives who currently or will assist patient after discharge: Domenica Mckinley - daughter - [phone] * Verbal permission to speak to the caregivers and representatives has been obtained from the patient. Yes * Community resources currently utilized None * Additional services required to return to the preadmission environment? No * Can the patient safely return to the preadmission environment? Yes * Has this patient been hospitalized within the prior 30 days at any hospital? No Patient Name: PRATIBHA MCKINLEY Page [phone] at 1258 All edits/amendments must be made on the electronic document DICTATION DATE: 02/12/19 1257 MAPPING EDITOR: SAIGE 02/12/19 1257 RPT#: [id number] DC DATE: STATUS: ADM IN [facility] [address] [place] [address] END OF REPORT
--- NOTE | 2019-02-12 13:28 | NUR ---
PATIENT RESTING WITH NO NEEDS VOICED, DAUGHTER AT BEDSIDE.
--- NOTE | 2019-02-12 14:23 | NUR ---
THIS NURSE RECEIVED THIS PATIENT AT 1400. PATIENT LYING IN BED RESTING. DAUGHTER AT BEDSIDE. NORMAL SALINE RUNNING AT 100CC/HR LEFT FOREARM VIA IV. PATIENT VOICES NO NEEDS AT THIS TIME. CALL LIGHT WITHIN REACH
--- NOTE | 2019-02-12 16:40 | NUR ---
PATIENT HELPED INTO BATHROOM BY NURSE ASST. STAND BY ASST.
[2019-02-12 20:00] VITALS: BP 156/69
--- NOTE | 2019-02-12 20:00 | NUR ---
ASSESSMENT PER FLOWSHEET.IV PATENT LEFT FOREARM OF NS AT 100CC'S/HR SITE CLEAR. CHEPE MAT TO BED YELLOW SAFETY MEASURES IN USE SR UP X2 CALL LIGHT WITHIN REACH. DOOR OPENED.
--- NOTE | 2019-02-12 21:15 | NUR ---
MEDS GIVEN PER MAR.
--- NOTE | 2019-02-12 22:34 | NUR ---
EYES CLOSED RESPIRATIONS WITH EASE AND UNLABORED.
[2019-02-13 04:00] VITALS: BP 152/89
[2019-02-13 06:07] LABS: BASOPHILS 0.3 % (0-2); EOSINOPHILS 2.8 % (0-7); HEMATOCRIT 34.2 % (36.0-48.0); HEMOGLOBIN 10.9 g/dL (12-16); IMMATURE GRANULOCYTES 0.3 % (0-5); LYMPHOCYTES 8.9 % (15-50); MCHC 31.9 g/dL (31.0-37.0); MONOCYTES 6.9 % (2-11); NEUTROPHILS 80.8 % (40-80); PLATELET COUNT 204 10x3/uL (130-400); RBC 3.63 10x6/uL (4.00-5.40); RDW 13.3 % (11.5-14.5)
[2019-02-13 06:11] LABS: MCV 94.2 fL (80.0-100.0); WBC 11.2 10x3/uL (4.8-10.8)
--- NOTE | 2019-02-13 06:32 | NUR ---
AWAKE SLIGHTLY CONFUSED. UP TO BR VOIDS ASSISTED BACK TO BED.
[2019-02-13 06:38] LABS: CALC OSMOLALITY 280 mosm/kg (275-300); CALCIUM 7.5 mg/dL (8.5-10.1); CARBON DIOXIDE 23.7 mmol/L (21.0-32.0); CHLORIDE - SERUM 109 mmol/L (98-107); CREATININE - SERUM 0.7 mg/dL (0.6-1.3); GLUCOSE 80 mg/dL (74-106); MAGNESIUM - SERUM 1.5 mg/dL (1.8-2.4); PHOSPHOROUS 2.5 mg/dL (2.5-4.9); POTASSIUM - SERUM 3.7 mmol/L (3.5-5.1); SODIUM 142 mmol/L (136-145); UREA NITROGEN 9 mg/dL (7-18); eGFR NON AFRICAN AMERICAN 84 mL/min (90-120)
--- NOTE | 2019-02-13 07:13 | NUR ---
ALERT AND ORIENTED. LUNGS CLEAR BILATERALLY. HEART SOUNDS S1 AND S2 HEARD IN ALL GASTELUM. BOWEL SOUNDS ACTIVE X 4. SKIN INTACT WITHOUT REDNESS. IV TO LFA PATENT WITHOUT REDNESS. TELEMETRY IN PLACE. DENIES NEEDS. BED LOW. FALL PRECAUTIONS IN PLACE. CALL LANCASTER AND PERSONAL ITEMS IN REACH. WILL CONTINUE TO MONITOR/
--- NOTE | 2019-02-13 08:30 | NUR ---
BP 172/73 THIS AM. BP MEDICATIONS GIVEN. WILL REASSESS.
--- NOTE | 2019-02-13 09:05 | NUR ---
PATIENT TAKEN FOR CT OF ABD.
[2019-02-13 09:13] LABS: CEA 1.8 ng/mL (0.0-4.7)
[2019-02-13 09:23] VITALS: BP 172/73
--- NOTE | 2019-02-13 09:38 | NUR ---
RETURNED FROM CT. DENIES NEEDS NEEDS. WILL CONTINUE TO MONITOR.
--- NOTE | 2019-02-13 12:19 | NUR ---
RESTING IN BED. DENIES NEEDS. WILL CONTINUE TO MONITOR.
--- NOTE | 2019-02-13 12:25 | NUR ---
FLUID RATE DECREASED TO 50/HR PER ORDER.
[2019-02-13 13:08] VITALS: BP 175/74
[2019-02-13 14:19] VITALS: Ht 160 cm; Wt 61.2 kg
--- NOTE | 2019-02-13 15:39 | NUR ---
PATIENT SLEEPING. WILL CONTINUE TO MONITOR.
--- NOTE | 2019-02-13 16:32 | MORECARE ---
CASE MANAGEMENT DISCHARGE SUMMARY PATIENT: PRATIBHA MCKINLEY UNIT: [id number] ADM DATE: 02/10/19 AGE: 83 : 34 SEX: F ROOM/BED: D.2216 AUTHOR: COY DENTON PHYSICIAN: REFERRING PHYSICIAN: WALLY LORA MD DATE OF SERVICE: 02/13/19 Discharge Plan Patient Name: PRATIBHA MCKINLEY Facility: [facility]:[place] : 1935 Planned Disposition: Home Anticipated Discharge Date: 02/13/19 Discharge Date: Expected LOS: 3 Initial Reviewer: [email or web address] Initial Review Date: 02/10/2019 Generated: 02/13/19 5:31 pm Comments DCP- Discharge Planning Updated by [email or web address]: Angely Calderon on 02/13/19 3:[address] Patient Name: PRATIBHA MCKINLEY Admission Status: ER Accout number: [id number] Admission Date: 02-10-2019 : 1935 Admission Diagnosis:INFECTIOUS GASTROENTERITIS AND COLITIS, UNSPECIFIED Attending: WALLY LORA Current LOS: 3 Anticipated DC Date: 02-13-2019 Planned Disposition: Home Primary Insurance: MEDICARE A & B Discharge Planning Comments: PLANS TO DC TO HOME, STATES HOPEFULLY TOMORROW. 2 DAUGHTERS WILL HELP HER AT HOME AND ONE DAUGHTER LIVES NEXT DOOR. DOESN'T WANT HH OR REHAB AT THIS TIME. CM TO FOLLOW AND ASSIST. Mold Chipper: Angely Calderon DCP- Discharge Planning Updated by [email or web address]: Gloria Og on 02/12/19 11:[address] DC PLAN: Return home alone w/ daughter next door. ANTICIPATED DC NEEDS: Denied dc needs. CM met with patient and two of her daughters to complete initial dc planning assessment. CM educated patient on the CM role and verbal consent given by patient to complete assessment. CM verified patient's address, phone number, and emergency contact phone numbers. Patient lives at home alone but her daughter Domenica lives next door and assists her with her daily needs. At discharge patient plans to return home alone, she and her daughter's feel this is a safe discharge. CM discussed availability of home health, rehab services, and medical equipment. Patient denied known discharge needs at this time. Patient reports her daughter Domenica will transport him/her home at time of discharge. CM will continue to follow and will assist as needed with dc plans/needs. Gloria Og RN, [facility] DCPIA - Discharge Planning Initial Assessment Updated by [email or web address]: Gloria Og on 02/12/19 12:54 pm * Is the patient Alert and Oriented? Yes * How many steps to enter\exit or inside your home? Three * PCP Dr. Grajeda * Pharmacy [facility] in [place] * Preadmission Environment Home Alone * ADLs Partial Dependent * Partial ADLs (Assistance needed) Bathing Medication Management * Equipment Rolling Walker * Other Equipment BP machine * List name and contact numbers for known caregivers / representatives who currently or will assist patient after discharge: Domenica Mckinley - daughter - [phone] * Verbal permission to speak to the caregivers and representatives has been obtained from the patient. Yes * Community resources currently utilized None * Additional services required to return to the preadmission environment? No * Can the patient safely return to the preadmission environment? Yes * Has this patient been hospitalized within the prior 30 days at any hospital? No Coverage Notice Reviewer: [email or web address] Maya Calderon Notice Issued Date-Time: 02/13/2019 16:28 Notice Type: IM Discharge Notice Notice Delivered To: Patient Relationship to Patient: Phy Therapist Name: Delivery Method: HAND - Hand Delivered Nani Days: Prior Verbal Notification: Recipient Understood Notice: Yes Recipient Signature: Yes Med Rec Note Co-signed by Attending: Coverage Notice Comment: Last DP export: 02/12/19 11:58 a Patient Name: PRATIBHA MCKINLEY Page [phone] at 1632 All edits/amendments must be made on the electronic document DICTATION DATE: 02/13/19 1631 RATING OFFICER: SAIGE 02/13/19 1631 RPT#: [id number] DC DATE: STATUS: ADM IN [facility] [address] [place] [address] END OF REPORT
[2019-02-13 17:42] VITALS: BP 198/86
--- NOTE | 2019-02-13 17:46 | NUR ---
RESTING IN BED. DENIES NEEDS. WILL CONTINUE TO MONITOR.
--- NOTE | 2019-02-13 20:00 | NUR ---
ALERT & ORIENTED. ASSISTED PT UP TO BATHROOM TO VOID. UNSTEADY, SHUFFLING GAIT. COMPLETE ASSESSMENT PER FLOW-SHEET. NO OTHER NEEDS. WILL CONTINUE TO MONITOR.
[2019-02-14] VITALS: BP 169/69
[2019-02-14 04:00] VITALS: BP 169/75
[2019-02-14 06:25] LABS: BASOPHILS 0.2 % (0-2); EOSINOPHILS 4.1 % (0-7); HEMATOCRIT 36.9 % (36.0-48.0); HEMOGLOBIN 11.9 g/dL (12-16); IMMATURE GRANULOCYTES 0.4 % (0-5); LYMPHOCYTES 8.7 % (15-50); MCH 30.4 pg (26.0-34.0); MCHC 32.2 g/dL (31.0-37.0); MCV 94.1 fL (80.0-100.0); MEAN PLATELET VOLUME 10.6 fL (7.4-10.4); NEUTROPHILS 80.6 % (40-80); PLATELET COUNT 234 10x3/uL (130-400); RBC 3.92 10x6/uL (4.00-5.40); RDW 13.3 % (11.5-14.5); WBC 10.5 10x3/uL (4.8-10.8)
[2019-02-14 06:43] LABS: CARBON DIOXIDE 24.3 mmol/L (21.0-32.0); CHLORIDE - SERUM 105 mmol/L (98-107); CREATININE - SERUM 0.7 mg/dL (0.6-1.3); GLUCOSE 92 mg/dL (74-106); MAGNESIUM - SERUM 1.5 mg/dL (1.8-2.4); PHOSPHOROUS 2.4 mg/dL (2.5-4.9); SODIUM 138 mmol/L (136-145); eGFR NON AFRICAN AMERICAN 84 mL/min (90-120)
[2019-02-14 06:44] LABS: CALC OSMOLALITY 273 mosm/kg (275-300); UREA NITROGEN 6 mg/dL (7-18)
--- NOTE | 2019-02-14 07:05 | NUR ---
LYING IN BED,WITHOUT DISTRESS.CHEPE MAT IN PLACE AND ON.DAUGHTER AT BEDSIDE.CALL LIGHT IN REACH
[2019-02-14 08:06] VITALS: BP 182/81
[2019-02-14 08:43] LABS: ALBUMIN 2.7 g/dL (3.4-5.0); BILIRUBIN - DIRECT 0.12 mg/dL (0.00-0.30); BILIRUBIN - INDIRECT 0.44 mg/dL (0.00-1.00); BILIRUBIN - TOTAL 0.56 mg/dL (0.2-1.3); PROTEIN - SERUM 6.3 g/dL (6.4-8.2)
[2019-02-14 12:44] VITALS: BP 165/82
[2019-02-14] MEDS ORDERED: FLAGYL500 MG PO (13:24)
[2019-02-14] MEDS ORDERED: LEVAQUIN750 MG PO (13:24)
[2019-02-14 18:14] LABS: APPEARANCE CLEAR (CLEAR); BILIRUBIN NEGATIVE (NEGATIVE); COLOR YELLOW (YELLOW); GLUCOSE NEGATIVE (NEGATIVE); KETONE NEGATIVE (NEGATIVE); NITRITE NEGATIVE (NEGATIVE); PROTEIN NEGATIVE (NEGATIVE); UROBILINOGEN NORMAL (NORMAL)
--- NOTE | 2019-02-14 18:45 | NUR ---
IV DCD WITH CATH TIP INTACT. DISCHARGE INSTRUCTIONS,STATES UNDERSTANDING.
--- NOTE | 2019-02-14 19:08 | NUR ---
LEFT UNIT VIA WHEELCHAIR FOR TRANSPORT HOME
[2019-02-15 07:18] LABS: HEPATITIS C ANTIBODY 0.2 S/CO RAT (0.0-0.9)
--- NOTE | 2019-02-15 15:49 | MORECARE ---
CASE MANAGEMENT DISCHARGE SUMMARY PATIENT: PRATIBHA MCKINLEY UNIT: [id number] ADM DATE: 02/10/19 AGE: 83 : 34 SEX: F ROOM/BED: D.2216 AUTHOR: COY DENTON PHYSICIAN: REFERRING PHYSICIAN: WALLY LORA MD DATE OF SERVICE: 02/15/19 Discharge Plan Patient Name: PRATIBHA MCKINLEY Facility: [facility]:[place] : 1935 Planned Disposition: Home Anticipated Discharge Date: 02/13/19 Discharge Date: 02/14/2019 Expected LOS: 3 Initial Reviewer: [email or web address] Initial Review Date: 02/10/2019 Generated: 02/15/19 4:49 pm Comments DCP- Discharge Planning Updated by [email or web address]: Angely Calderon on 02/13/19 3:[address] Patient Name: PRATIBHA MCKINLEY Admission Status: ER Accout number: [id number] Admission Date: 02-10-2019 : 1935 Admission Diagnosis:INFECTIOUS GASTROENTERITIS AND COLITIS, UNSPECIFIED Attending: WALLY LORA Current LOS: 3 Anticipated DC Date: 02-13-2019 Planned Disposition: Home Primary Insurance: MEDICARE A & B Discharge Planning Comments: PLANS TO DC TO HOME, STATES HOPEFULLY TOMORROW. 2 DAUGHTERS WILL HELP HER AT HOME AND ONE DAUGHTER LIVES NEXT DOOR. DOESN'T WANT HH OR REHAB AT THIS TIME. CM TO FOLLOW AND ASSIST. Dedenter: Angely Calderon DCP- Discharge Planning Updated by [email or web address]: Gloria Og on 02/12/19 11:[address] DC PLAN: Return home alone w/ daughter next door. ANTICIPATED DC NEEDS: Denied dc needs. CM met with patient and two of her daughters to complete initial dc planning assessment. CM educated patient on the CM role and verbal consent given by patient to complete assessment. CM verified patient's address, phone number, and emergency contact phone numbers. Patient lives at home alone but her daughter Domenica lives next door and assists her with her daily needs. At discharge patient plans to return home alone, she and her daughter's feel this is a safe discharge. CM discussed availability of home health, rehab services, and medical equipment. Patient denied known discharge needs at this time. Patient reports her daughter Domenica will transport him/her home at time of discharge. CM will continue to follow and will assist as needed with dc plans/needs. Gloria Og RN, [facility] DCPIA - Discharge Planning Initial Assessment Updated by [email or web address]: Gloria Og on 02/12/19 12:54 pm * Is the patient Alert and Oriented? Yes * How many steps to enter\exit or inside your home? Three * PCP Dr. Grajeda * Pharmacy [facility] in [place] * Preadmission Environment Home Alone * ADLs Partial Dependent * Partial ADLs (Assistance needed) Bathing Medication Management * Equipment Rolling Walker * Other Equipment BP machine * List name and contact numbers for known caregivers / representatives who currently or will assist patient after discharge: Domenica Mckinley - daughter - [phone] * Verbal permission to speak to the caregivers and representatives has been obtained from the patient. Yes * Community resources currently utilized None * Additional services required to return to the preadmission environment? No * Can the patient safely return to the preadmission environment? Yes * Has this patient been hospitalized within the prior 30 days at any hospital? No Coverage Notice Reviewer: [email or web address] Maya Calderon Notice Issued Date-Time: 02/13/2019 16:28 Notice Type: IM Discharge Notice Notice Delivered To: Patient Relationship to Patient: Weaving Machine Operator Name: Delivery Method: HAND - Hand Delivered Nani Days: Prior Verbal Notification: Recipient Understood Notice: Yes Recipient Signature: Yes Med Rec Note Co-signed by Attending: Coverage Notice Comment: Last DP export: 02/13/19 3:32 p Patient Name: PRATIBHA MCKINLEY Page [phone] at 1549 All edits/amendments must be made on the electronic document DICTATION DATE: 02/15/19 1549 RETURNS CLERK: SAIGE 02/15/19 1549 RPT#: [id number] DC DATE:02/14/19 STATUS: DIS IN [facility] [address] [place] [id number] END OF REPORT
== END 2019-02-14 19:09 | disposition home or self-care (01) | DRG 392 ==
LOC: D.ER 16:55 → D.MS 21:47
PROVIDERS: Emergency Medicine; Family Medicine; Internal Medicine Gastroenterology; Internal Medicine Hematology & Oncology; Specialist; ADMIT Internal Medicine Nephrology; ATTEND Internal Medicine Nephrology
DX: A09 Infectious gastroenteritis and colitis, unspecified (principal); S32.020A Wedge compression fracture of second lumbar vertebra, initial encounter for closed fracture; N39.0 Urinary tract infection, site not specified; K92.2 Gastrointestinal hemorrhage, unspecified; C22.0 Liver cell carcinoma; R71.0 Precipitous drop in hematocrit; I10 Essential (primary) hypertension; I25.10 Atherosclerotic heart disease of native coronary artery without angina pectoris; R16.0 Hepatomegaly, not elsewhere classified; I48.91 Unspecified atrial fibrillation

== ENCOUNTER 2019-03-09 02:55 | Inpatient (IN) | payer MEDICARE ==
[~2019-03-09] VITALS: Ht 160 cm; Wt 67.3 kg
[2019-03-09] VITALS (8 sets, daily range): BP systolic 113–145; BP diastolic 66–99; BMI 23.0
--- NOTE | ~2019-03-09 | HEMODYNAMI ---
PATIENT:PRATIBHA MCKINLEY MEDICAL RECORD: [id number] : 33 LOCATION:[address] ADMISSION DATE: 03/10/19 Generatedon:03/12/201911:57 Patient name: PRATIBHA MCKINLEY Patient #: [id number] SSN: : 1935 Date of study: 03/12/2019 Page: Of Hemodynamic Procedure Report Patient Data Patient Demographics Procedure consent was obtained First Name: PRATIBHA Gender: Female Last Name: ARLEN : 1935 [facility] Initial: ALEN Age: 83 year(s) GABY Race: Unknown Patient #: [id number] Additional ID: [id number] Contact details [address]: [address] [place] [address] State: [place] City: [place] Zip code: [address] Past Medical History Allergies: No known allergies Admission Admission Data Admission Date: 03/10/2019 Admission Time: 12:35 Room #: [facility] Procedure Procedure Types Cath Procedure Peripheral vascular Intervention Embolization Chemo Embolization Procedure Description Procedure Date Procedure Date: 03/12/2019 Procedure Start Time: 11:28 Procedure Staff Name Function Cali Bailey MD Performing Physician Jazzy Daley RN Nurse Karrie Goodman RN Nurse ILA HENRY RT Scrub Rhiannon Win RT Monitor Procedure Data Cath Procedure Fluoroscopy Diagnostic fluoroscopy Total fluoroscopy Time: 4.7 time: 4.7 min min Diagnostic fluoroscopy Total fluoroscopy dose: 324 dose: 324 mGy mGy Contrast Material Contrast Material Type Amount (ml) Isovue 300 60 Diagnostic catheters Device Type Used For End Catheter Placement Merit Impress 5Fr SIM 1 Catheter ([id number]) Procedure Medications Medication Administration Route Dosage Heparin Flush Bag added to field 2 bags (1000units/500ml NS) Lidocaine 1% added to field 20 Fentanyl I.V. 25 mcg Versed I.V. 0.5 mg Fentanyl I.V. 25 mcg Hemodynamics Rest Heart Rate: 83 (bpm) Snapshots Pre Cath Intra NCS Post Cath Vital Signs Time Heart Resp SPO2 etCO2 NIBP (mmHg) Rhythm Pain Sedation Rate (ipm) (%) (mmHg) Status Level (bpm) 11:04:01 73 24 21 125/65(106) NSR 0 (11) 8(A) , No pain 11:08:09 79 25 0 137/79(110) NSR 0 (11) 8(A) , No pain 11:12:23 73 23 99 18.8 132/75(114) NSR 0 (11) 8(A) , No pain 11:16:33 77 22 97 0 130/78(121) NSR 0 (11) 8(A) , No pain 11:21:30 86 26 97 0 134/77(109) NSR 0 (11) 8(A) , No pain 11:25:40 69 23 95 0 129/81(108) NSR 0 (11) 8(A) , No pain 11:29:48 72 20 97 27.8 133/82(113) NSR 0 (11) 8(A) , No pain 11:34:01 75 24 98 27 137/70(122) NSR 0 (11) 8(A) , No pain 11:38:13 74 27 97 12 136/75(113) NSR 0 (11) 8(A) , No pain 11:42:23 71 21 97 24 141/83(125) NSR 0 (11) 8(A) , No pain 11:46:37 82 23 96 26.2 146/76(130) NSR 0 (11) 8(A) , No pain 11:50:51 74 21 97 24 148/86(123) NSR 0 (11) 8(A) , No pain 11:55:09 77 21 0 139/72(125) NSR 0 (11) 8(A) , No pain Medications Time Medication Route Dose Verified Delivered Reason Notes Effe ctiveness by by 11:11:35 Heparin Flush added 2 Cali Leiva used for Bag to bags Leo Bailey procedure (1000units/500ml field MD ADAMSON NS) 11:11:47 Lidocaine 1% added 20ml Cali Leiva for local to vial Leo Bailey anesthetic field MD ADAMSON 11:18:08 Fentanyl I.V. 25 Cali Yoon for mcg Leo Goodman RN sedation 11:18:19 Versed I.V. 0.5 Cali Yoon for mg Leo Goodman RN sedation 11:45:25 Fentanyl I.V. 25 Cali Yoon for [facility] Leo Goodman RN sedation Procedure Log Time Note 10:53:05 Karrie Goodman RN sent for patient. Start room use. 10:53:07 Time tracking: Regular hours (M-F 7:00 - 5:00) 10:53:11 Plan of Care:Hemodynamics will remain stable., Cardiac rhythm will remain stable., Comfort level will be maintained., Respiratory function will remain adequate., Patient/ family verbilizes understanding of procedure., Procedure tolerated without complication., Recovers from procedure without complications.. 10:53:41 Patient received from [place] II to IR Alert and oriented. Tansferred to table in Supine position. 10:53:49 Signed procedure consent form obtained from guardian. 10:53:50 Warm blankets applied, and skip hugger turned on for patient comfort. 10:53:51 Correct patient and procedure confirmed by team. 10:53:52 ECG and BP/O2 sat monitors applied to patient. 10:53:53 - 10:54:01 H&P Date Dictated: 03/12/2019 Within 30 days and on chart.. 10:54:03 Pre-procedure instructions explained to patient. 10:54:03 Pre-op teaching completed and patient verbalized understanding. 10:54:06 Family in patients room. 10:54:08 Patient NPO since Midnight. 10:55:26 Patient allergic to No known allergies 10:55:29 Is the patient allergic to Iodine/contrast media? No. 10:55:46 Is patient on blood thinner?No 10:56:34 - 10:57:22 ----Patient unable to answer Pre-sedation anethsthesia assessment.---- :57:22 Airway obstruction? Yes heart disease/asthma/AFIB 10:58:23 IV patent on arrival in right forearm, left forearm with Lactated Ringers at O. 10:58:31 Right groin area was prepped with chlora-prep and draped in sterile fashion 10:58:33 - 11:02:51 Vital chart was started 11:11:35 Heparin Flush Bag (1000units/500ml NS) 2 bags added to field was administered by Cali Bailey MD; used for procedure; Verbal order read back and verified. 11:11:47 Lidocaine 1% 20ml vial added to field was administered by Cali herrera MD; for local anesthetic; Verbal order read back and verified. 11:12:29 Baseline sample Acquired. 11:12:30 Full Disclosure recording started 11:12:31 - 11:12:48 Use device set IR Diagnostic 11:18:08 Fentanyl 25 mcg I.V. was administered by Karrie Goodman RN; for sedation; Verbal order read back and verified. 11:18:19 Versed 0.5 mg I.V. was administered by Karrie Goodman RN; for sedation; Verbal order read back and verified. 11:26:43 Micropuncture VSI 4FR kit opened to sterile field. 11:26:44 BENTSON 145cm wire ([id number]) opened to sterile field. 11:26:47 COPILOT Valve Control ([id number]) opened to sterile field. 11:26:49 STOPCOCK 3-Way Large Bore (B01510) opened to sterile field. 11:26:50 TUBING Contrast Injection High Pressure ([id number]) opened to sterile field. 11:26:53 A Merit Impress 5Fr SIM 1 Catheter ([id number]) was advanced over the wire and used for . 11:26:54 SHEATH 5FR [place] (DOI327) opened to sterile field. 11:26:55 RENEGADE STAIGHT 150CM microcatheter ([id number]) opened to sterile field. 11:26:56 TRANSEND STEERABLE wire ([id number]) opened to sterile field. 11:26:57 Tegaderm 4 x 4 (1626W) opened to sterile field. 11:26:57 Sterile Angiographic Pack opened to sterile field. 11:27:00 Bag Decanter (2001S) opened to sterile field. 11:27:01 ACIST Manifold (09967) opened to sterile field. 11:27:02 ACIST Hand Control (09427) opened to sterile field. 11:27:03 ACIST Syringe (75197) opened to sterile field. 11:27:11 RENEGADE HI-SALLY microcatheter ([id number]) opened to sterile field. 11:27:31 - 11:27:45 Physician arrived 11:27:46 --------ALL STOP TIME OUT------ 11:27:47 Final Timeout: patient, procedure, and site verified with staff and physician. All members of the team are in agreement. 11:28:26 Fire Safety Assessment: A--An alcohol-based skin anteseptic being used preoperatively., C--Open oxygen or nitrous oxide is being used. 11:28:36 Procedure started. 11:28:40 Local anesthetic to right femoral artery with Lidocaine 1% by Cali Bailey MD.INITIAL ACCESS ONLY 11:31:22 Arterial access obtained using ultrasound guidance. 11:31:27 Angiography was performed. 11:40:58 BEADS LC M1 100-300UM (CK921EI) opened to sterile field. 11:45:25 Fentanyl 25 mcg I.V. was administered by Karrie Goodman RN; for sedation; Verbal order read back and verified. 11:50:18 Angiography was performed. 11:50:41 Procedure ended.(Physican Out) 11:53:03 Fluoroscopy time 04.70 minutes. 11:53:18 Fluoroscopy dose: 324 mGy 11:53:18 Flurop Dose total: 324 11:53:38 Contrast amount:Isovue 300 60ml. 11:53:48 Procedure and supply charges have been captured, reviewed, submitted an d are correct. 11:57:31 Report given to Solartrec. 11:57:52 Vital chart was stopped Device Usage Item Name Manufacture Quantity Catalog Hospital Part Current Mini mal Lot# / Number Charge Number Stock Stock Serial# Code Micropuncture VSI VASCULAR 1 7266V 712131 088396 5 VSI 4FR kit SOLUTIONS BENTSON 145cm [employer] [facility] 1 [id number] 317103 259264 5 wire ([id number]) COPILOT Valve [place] 1 2599869 097722 933561 150560 5 Control Vascular ([id number]) STOPCOCK [facility] 1 G66501 243121 5880 821086 5 3-Way Large Bore (P27847) TUBING [facility] 1 [id number] 791181 970842 412502 5 Contrast Injection High Pressure (ESQ357Y) Merit Impress [facility] 1 [id number] 253592 769647 899959 5 5Fr SIM 1 Catheter ([id number]) SHEATH 5FR Terumo 1 QDK556 487180 198069 154429 5 [place] (OUX216) RENEGADE Yolo 1 [id number] 670660 703124 5 STAIGHT 150CM Scientific microcatheter ([id number]) TRANSEND Yolo 1 [id number] 900821 502451 5 STEERABLE Scientific wire ([id number]) Tegaderm 4 x 3M 1 1626W 652288 878085 627894 5 4 (1626W) Sterile Cardinal 1 [id number] 239721 144121 5 Angiographic Health Pack Bag Decanter Microtek 1 2001S 962176 35730 789082 5 () Medical Inc. ACIST Acist Medical 1 51556 073778 921152 185514 5 Manifold Systems Inc (96450) ACIST Hand [facility] 1 57015 561105 471115 021492 5 Control Systems Inc (83544) ACIST Syringe [facility] [facility] 1 92703 124845 179576 236971 20 (51616) Systems Inc RENEGADE Yolo 1 [id number] 801235 886398 5 [employer] (P) microcatheter ([id number]) BEADS LC M1 BIOCOMPATIBLES 1 [id number] 102769 363508 523004 5 100-300UM INC ([id number]) Signature Audit [place] Stage Time Signature Unsigned Intra-Procedure 03/12/2019 Rhiannon Win 11:57:49 AM RT(R) [facility] [address] [place] [address]
[~2019-03-09 02:55] MED LIST changes: +FLAGYL500 MG PO; +LEVAQUIN750 MG PO
--- NOTE | 2019-03-09 03:44 | NUR ---
RN ADMINISTERED PAIN MED ORDERED. PT O2 SAT DROPPED TO 87%. PT PLACED ON 2L VIA NC. PT SAT 99% AT THIS TIME.
--- NOTE | 2019-03-09 04:38 | NUR ---
PT LEFT ED VIA STRETCHER.
--- NOTE | 2019-03-09 04:49 | NUR ---
PT RETURNED FROM CT VIA STRETCHER.
[2019-03-09 04:52] LABS: BASOPHILS 0.1 % (0-2); EOSINOPHILS 0.2 % (0-7); HEMATOCRIT 37.9 % (36.0-48.0); HEMOGLOBIN 12.2 g/dL (12-16); IMMATURE GRANULOCYTES 0.3 % (0-5); LYMPHOCYTES 5.2 % (15-50); MCH 30.3 pg (26.0-34.0); MCHC 32.2 g/dL (31.0-37.0); MCV 94.3 fL (80.0-100.0); MEAN PLATELET VOLUME 11.3 fL (7.4-10.4); MONOCYTES 7.8 % (2-11); NEUTROPHILS 86.4 % (40-80); PLATELET COUNT 201 10x3/uL (130-400); RBC 4.02 10x6/uL (4.00-5.40); RDW 13.8 % (11.5-14.5); WBC 11.2 10x3/uL (4.8-10.8)
[2019-03-09 05:00] LABS: ANION GAP 10.9 mmol/L (8-16); CALCIUM 9.1 mg/dL (8.5-10.1); CARBON DIOXIDE 24.8 mmol/L (21.0-32.0); CREATININE - SERUM 0.8 mg/dL (0.6-1.3); POTASSIUM - SERUM 3.7 mmol/L (3.5-5.1)
[2019-03-09 05:07] LABS: ALBUMIN 2.9 g/dL (3.4-5.0); BILIRUBIN - TOTAL 0.84 mg/dL (0.2-1.3); TROPONIN-I 0.02 ng/mL (0.000-0.060)
--- NOTE | 2019-03-09 05:45 | NUR ---
PT SLEEPING ON BED. NO S/S OF ACUTE DISTRESS NOTED. PT DAUGHTER AT BEDSIDE.
--- NOTE | 2019-03-09 06:34 | NUR ---
PT SLEEPING ON BED. NO S/S OF ACUTE DISTRESS NOTED. PT FAMILY AT BEDSIDE.
[2019-03-09] MEDS ORDERED: ZOLOFT50 MG PO (07:50)
--- NOTE | 2019-03-09 07:51 | NUR ---
pt arrives to room via stretcher and is aao x 4. pt is accompanied by er staff and daughter. pt reports slight pain to abdominal area described as sharp and stabbing. bs are hypoactive x 4 quadrants. pt reports last bm on 03/08/19 and pt states that "it is just like it always is". pt states that she is not passing gas and does not recall the last episode of flatulence. pt denies presence of numbness/tingling in bilateral upper and lower extremities. pt denies presence of n/v at this time. all fall precautions are in place. daughter is at bedside. bed is in the lowest position. call light and bedside table are within reach. side rails x 2. will cont to monitor.
--- NOTE | 2019-03-09 10:21 | NUR ---
PT REPORTS PAIN TO ABDOMINAL AREA 10/10 DESCRIBED STABBING. ELISEO SIMENTAL APRN PAGED TO NOTIFY.
--- NOTE | 2019-03-09 10:24 | NUR ---
ELISEO SIMENTAL APRN RETURNED PAGE AND NOTIFIED OF PT PAIN LEVEL. TELEPHONE ORDERS RECD ARE MORPHINE 2 MG IV Q4 HOURS PRN. WILL PLACE ORDERS AND ADDRESS PT PAIN.
--- NOTE | 2019-03-09 10:35 | NUR ---
INDUSTRIAL SERVICER PLACED ON PT. PER INDUSTRIAL SERVICER TECH PT RUNNING CONTROLLED A. FIB AT 82.
--- NOTE | 2019-03-09 17:03 | MORECARE ---
CASE MANAGEMENT DISCHARGE SUMMARY PATIENT: PRATIBHA MCKINLEY UNIT: [id number] ADM DATE: 03/09/19 AGE: 83 : 34 SEX: F ROOM/BED: D.2207 AUTHOR: COY DENTON PHYSICIAN: REFERRING PHYSICIAN: MIRIAM WARREN MD DATE OF SERVICE: 03/09/19 Discharge Plan Patient Name: PRATIBHA MCKINLEY Facility: [facility]:[place] : 1935 Planned Disposition: Anticipated Discharge Date: Discharge Date: Expected LOS: Initial Reviewer: [email or web address] Initial Review Date: 03/09/2019 Generated: 03/09/19 6:03 pm Patient Name: PRATIBHA MCKINLEY Page [id number] at 1703 All edits/amendments must be made on the electronic document DICTATION DATE: 03/09/191702 WASTE MANAGEMENT ENGINEER: SAIGE 03/09/191702 RPT#: [id number] DC DATE: STATUS: ADM IN [facility] [address] [place] [address] END OF REPORT
--- NOTE | 2019-03-09 17:11 | MORECARE ---
CASE MANAGEMENT DISCHARGE SUMMARY PATIENT: PRATIBHA MCKINLEY UNIT: [id number] ADM DATE: 03/09/19 AGE: 83 : 34 SEX: F ROOM/BED: D.2207 AUTHOR: COY DENTON PHYSICIAN: REFERRING PHYSICIAN: MIRIAM WARREN MD DATE OF SERVICE: 03/09/19 Discharge Plan Patient Name: PRATIBHA MCKINLEY Facility: [facility]:[place] : 1935 Planned Disposition: Anticipated Discharge Date: Discharge Date: Expected LOS: Initial Reviewer: [email or web address] Initial Review Date: 03/09/2019 Generated: 03/09/19 6:11 pm Comments DCP- Discharge Planning Updated by [email or web address]: Megha Segura on 03/09/19 4:[address] Visit with family for SEGURA signature. Daughter's had questions regarding home hospice. Verbal information provided. Family states they have some decisions to make. Order pending for HOME HOSPICE. Coverage Notice Reviewer: [id number] Maya Segura Notice Issued Date-Time: 03/09/2019 16:45 Notice Type: Medicare Outpatient Observation Notice Notice Delivered To: Family Member Relationship to Patient: Daughter Product Development Technician Name: Pratibha Burt Delivery Method: - Nani Days: Prior Verbal Notification: Recipient Understood Notice: Recipient Signature: Med Rec Note Co-signed by Attending: Coverage Notice Comment: Reviewer: [id number] Maya Segura Notice Issued Date-Time: 03/09/2019 17:04 Notice Type: Notice Delivered To: Relationship to Patient: Product Development Technician Name: Delivery Method: HAND - Hand Delivered Nani Days: Prior Verbal Notification: Recipient Understood Notice: Yes Recipient Signature: Yes Med Rec Note Co-signed by Attending: Coverage Notice Comment: SEGURA delivered to patient and signed by daughterIliana. original given to daughter and also placed on chart. Last DP export: 03/09/19 4:03 p Patient Name: PRATIBHA MCKINLEY Page [phone] at 1711 All edits/amendments must be made on the electronic document DICTATION DATE: 03/09/191710 SKIN CARE INSTRUCTOR: SAIGE 03/09/191710 RPT#: [id number] DC DATE: STATUS: ADM IN [facility] [address] [place] [address] END OF REPORT
[2019-03-09 18:45] LABS: APPEARANCE CLEAR (CLEAR); BILIRUBIN NEGATIVE (NEGATIVE); COLOR YELLOW (YELLOW); GLUCOSE NEGATIVE (NEGATIVE); KETONE SMALL mg/dL (NEGATIVE); NITRITE NEGATIVE (NEGATIVE); PROTEIN NEGATIVE (NEGATIVE); SPECIFIC GRAVITY 1.025 (1.005-1.020); UROBILINOGEN NORMAL (NORMAL)
[2019-03-09 18:46] LABS: BACTERIA MANY /hpf (NEGATIVE); RED CELLS - URINE 0-5 /hpf (0-5)
--- NOTE | 2019-03-09 19:22 | MORECARE ---
CASE MANAGEMENT DISCHARGE SUMMARY PATIENT: PRATIBHA MCKINLEY UNIT: [id number] ADM DATE: 03/09/19 AGE: 83 : 34 SEX: F ROOM/BED: D.2207 AUTHOR: COY DENTON PHYSICIAN: REFERRING PHYSICIAN: MIRIAM WARREN MD DATE OF SERVICE: 03/09/19 Discharge Plan Patient Name: PRATIBHA MCKINLEY Facility: [facility]:[place] : 1935 Planned Disposition: Anticipated Discharge Date: Discharge Date: Expected LOS: Initial Reviewer: [email or web address] Initial Review Date: 03/09/2019 Generated: 03/09/19 8:21 pm Comments DCP- Discharge Planning Updated by [id number]: Megha Segura on 03/09/19 6:[address] Visit with family for SEGURA signature. Daughter's had questions regarding home hospice. Verbal information provided. Family states they have some decisions to make. Order pending for HOME HOSPICE. Provided printed information and Patient Choice list for hospices available. Coverage Notice Reviewer: [id number] Maya Segura Notice Issued Date-Time: 03/09/2019 16:45 Notice Type: Medicare Outpatient Observation Notice Notice Delivered To: Family Member Relationship to Patient: Daughter Corporate Relations Manager Name: Pratibha Burt Delivery Method: - Nani Days: Prior Verbal Notification: Recipient Understood Notice: Recipient Signature: Med Rec Note Co-signed by Attending: Coverage Notice Comment: Reviewer: [id number] Maya Segura Notice Issued Date-Time: 03/09/2019 17:04 Notice Type: Notice Delivered To: Relationship to Patient: Corporate Relations Manager Name: Delivery Method: HAND - Hand Delivered Nani Days: Prior Verbal Notification: Recipient Understood Notice: Yes Recipient Signature: Yes Med Rec Note Co-signed by Attending: Coverage Notice Comment: SEGURA delivered to patient and signed by daughterIliana. original given to daughter and also placed on chart. Last DP export: 03/09/19 4:11 p Patient Name: PRATIBHA MCKINLEY Page 24110 at 1922 All edits/amendments must be made on the electronic document DICTATION DATE: 03/09/191920 ELECTRIC DRILL OPERATOR: DM 03/09/191920 RPT#: [id number] DC DATE: STATUS: ADM IN [facility] [address] [place] [address] END OF REPORT
--- NOTE | 2019-03-09 20:00 | NUR ---
PT ALERT & ORIENTED. C/O PAIN IN RIGHT RIB AREA 8/10. GAVE MORPHINE 2 MG IV PUSH AND SCHEDULED EYE DROPS. NO OTHER NEEDS. DAUGHTERS ARE GOING HOME FOR THE NIGHT. WILL REASSESS AND CONTINUE TO MONITOR.
--- NOTE | 2019-03-10 00:05 | NUR ---
CHECKED IN ON PT. PT SLEEPING. RESP EVEN, UNLABORED. NO DISTRESS NOTED. WILL CONTINUE TO MONITOR.
[2019-03-10 00:30] VITALS: BP 164/99
--- NOTE | 2019-03-10 02:30 | NUR ---
PT WOKE UP DISORIENTED. STATED SHE NEEDED TO GET DRESSED AND GO TO WORK BUT COULD NOT GET UP. SHE HAD PULLED OUT IV. REORIENTED PT AND OFFERED TOILET. ASSISTED PT UP TO BEDSIDE COMMODE TO VOID. CHANGED BED WHERE IV HAD LEAKED. ASSESSED PAIN LEVEL. PT STATED SHE DIDN'T HAVE MUCH PAIN AND DECLINED PAIN MEDS AT THIS TIME. IV 22 G RESITED TO RIGHT FOREARM BY RIGO EUGENE. NO OTHER NEEDS. WILL REASSESS AND CONTINUE TO MONITOR. BED LOW. CALL LIGHT IN REACH.
--- NOTE | 2019-03-10 04:04 | NUR ---
PT CONFUSED TO PLACE, SITUATION AND TIME. REORIENTED. PT "WINCED" A LITTLE AND TOUCHED HER ABDOMEN. ASKED PT IF SHE WAS IN PAIN AND WOULD SHE LIKE SOME PAIN MEDICINE. SHE AGREED SHE MIGHT NEED SOME. GAVE MORPHINE 2 MG IV PUSH AND ASSISTED PT TO TURN ONTO HER SIDE SUPPORTED WITH PILLOW. NO OTHER NEEDS. WILL CONTINUE TO MONITOR.
[2019-03-10 06:11] LABS: BASOPHILS 0.2 % (0-2); EOSINOPHILS 0.5 % (0-7); HEMATOCRIT 36.6 % (36.0-48.0); HEMOGLOBIN 11.7 g/dL (12-16); IMMATURE GRANULOCYTES 0.2 % (0-5); LYMPHOCYTES 6.1 % (15-50); MCH 30.7 pg (26.0-34.0); MCV 96.1 fL (80.0-100.0); MEAN PLATELET VOLUME 11.5 fL (7.4-10.4); MONOCYTES 8.9 % (2-11); NEUTROPHILS 84.1 % (40-80); PLATELET COUNT 215 10x3/uL (130-400); RBC 3.81 10x6/uL (4.00-5.40); RDW 13.7 % (11.5-14.5); WBC 12.9 10x3/uL (4.8-10.8)
[2019-03-10 06:21] LABS: ALBUMIN 2.3 g/dL (3.4-5.0); ALKALINE PHOSPHATASE 61 U/L (46-116); ALT (SGPT) 18 U/L (10-68); BILIRUBIN - TOTAL 0.73 mg/dL (0.2-1.3); CALC OSMOLALITY 276 mosm/kg (275-300); CALCIUM 8.7 mg/dL (8.5-10.1); CARBON DIOXIDE 25.8 mmol/L (21.0-32.0); CHLORIDE - SERUM 104 mmol/L (98-107); CREATININE - SERUM 0.6 mg/dL (0.6-1.3); GLUCOSE 99 mg/dL (74-106); PROTEIN - SERUM 6.2 g/dL (6.4-8.2); SODIUM 137 mmol/L (136-145); UREA NITROGEN 20 mg/dL (7-18); eGFR NON AFRICAN AMERICAN > 90 mL/min (90-120)
[2019-03-10 08:06] LABS: APTT 36.2 SECONDS (22.8-39.4); INR 1.18 (0.85-1.17); PROTIME 14.5 SECONDS (11.6-15.0)
[2019-03-10 08:45] VITALS: BP 140/75
--- NOTE | 2019-03-10 08:55 | NUR ---
ALERT AND ORIENTED. DAUGHTERS AT BEDSIDE. LUNGS CLEAR BILATERALLY. HEART SOUNDS S1 AND S2 HEARD IN ALL GASTELUM. BOWEL SOUNDS ACTIVE X 4. SKIN INTACT WITHOUT REDNESS. IV TO RFA PATENT WITHOUT REDNESS. ASSISTED TO BSC AND BACK. NO BM. EDUCATION PROVIDED TO FAMILY ON NEED FOR STOOL SAMPLE. VERBALIZED UNDERSTANDING. HAT IN BSC. PATIENT REQUESTING HOME HOSPICE. ANABEL RODRIGUEZ IN ROOM SPEAKING WITH PATIENT AND FAMILY. BED LOW. FALL PRECAUTIONS IN PLACE. CALL LANCASTER AND PERSONAL ITEMS IN REACH. WILL CONTINUE TO MONITOR.
--- NOTE | 2019-03-10 09:06 | MORECARE ---
CASE MANAGEMENT DISCHARGE SUMMARY PATIENT: PRATIBHA MCKINLEY UNIT: [id number] ADM DATE: 03/09/19 AGE: 83 : 34 SEX: F ROOM/BED: D.2207 AUTHOR: COY DENTON PHYSICIAN: REFERRING PHYSICIAN: MIRIAM WARREN MD DATE OF SERVICE: 03/10/19 Discharge Plan Patient Name: PRATIBHA MCKINLEY Facility: [facility]:[place] : 1935 Planned Disposition: Anticipated Discharge Date: Discharge Date: Expected LOS: Initial Reviewer: [email or web address] Initial Review Date: 03/09/2019 Generated: 03/10/19 10:06 am Comments DCP- Discharge Planning Updated by [email or web address]: Leidy Velázquez on 03/10/19 8:[address] SPOKE WITH PATIENT'S DAUGHTER ABOUT HOSPICE, SHE STATED THAT THEY ARE WAITING TO SPEAK WITH IR ABOUT A CHEMO 1 TIME TREATMENT, BEFORE MAKING THE HOSPICE DECISION. SHE STATED THAT SHE WOULD LIKE TO SEE THE OF HER GREAT GREAT GRANDCHILDREN AND THIS ONE TIME TX COULD REED OR WIND INSTRUMENT REPAIRER HER UP TO A YEAR. CM WILL WAIT TILL AFTER IR CONSULT TO SEE DC PLAN DCP- Discharge Planning Updated by [id number]: Megha Segura on 03/09/19 6:[address] Visit with family for SEGURA signature. Daughter's had questions regarding home hospice. Verbal information provided. Family states they have some decisions to make. Order pending for HOME HOSPICE. Provided printed information and Patient Choice list for hospices available. Coverage Notice Reviewer: [id number] Maya Segura Notice Issued Date-Time: 03/09/2019 16:45 Notice Type: Medicare Outpatient Observation Notice Notice Delivered To: Family Member Relationship to Patient: Daughter Valve Liner Rubber Name: Pratibha Burt Delivery Method: - Nani Days: Prior Verbal Notification: Recipient Understood Notice: Recipient Signature: Med Rec Note Co-signed by Attending: Coverage Notice Comment: Reviewer: [id number] Maya Segura Notice Issued Date-Time: 03/09/2019 17:04 Notice Type: Notice Delivered To: Relationship to Patient: Valve Liner Rubber Name: Delivery Method: HAND - Hand Delivered Nani Days: Prior Verbal Notification: Recipient Understood Notice: Yes Recipient Signature: Yes Med Rec Note Co-signed by Attending: Coverage Notice Comment: SEGURA delivered to patient and signed by daughter, Iliana Bass. original given to daughter and also placed on chart. Last DP export: 03/09/19 6:22 p Patient Name: PRATIBHA MCKINLEY Page [phone] at 0906 All edits/amendments must be made on the electronic document DICTATION DATE: 03/10/19905 CONTINUOUS MINER OPERATOR: SAIGE 03/10/19905 RPT#: [id number] DC DATE: STATUS: ADM IN [facility] [address] [place] [address] END OF REPORT
[2019-03-10 09:45] VITALS: Ht 160 cm; Wt 67.3 kg
--- NOTE | 2019-03-10 10:11 | NUR ---
SPOKE WITH DR GUNTER WHO STATES PATIENT NO LONGER WANTS TO GO HOME WITH HOSPICE. STATES TO CALL AQUILINO IN IR AND LET KNOW THAT PT WANTS CHEMO EMBOLIZATION NOW. AQUILINO IN IR MADE AWARE OF PATIENT'S DECISION.
[2019-03-10 13:23] VITALS: BP 124/72
[2019-03-10 16:46] VITALS: BP 123/63
[2019-03-10 19:30] VITALS: BP 127/73
[2019-03-11 01:34] VITALS: BP 121/68
[2019-03-11 06:01] VITALS: BP 145/77
[2019-03-11 06:22] LABS: APTT 32.2 SECONDS (22.8-39.4); INR 1.18 (0.85-1.17); PROTIME 14.5 SECONDS (11.6-15.0)
[2019-03-11 06:28] LABS: ALBUMIN 2.2 g/dL (3.4-5.0); ALKALINE PHOSPHATASE 68 U/L (46-116); ALT (SGPT) 19 U/L (10-68); BILIRUBIN - TOTAL 0.76 mg/dL (0.2-1.3); CALCIUM 8.2 mg/dL (8.5-10.1); CARBON DIOXIDE 26.1 mmol/L (21.0-32.0); CHLORIDE - SERUM 102 mmol/L (98-107); CREATININE - SERUM 0.5 mg/dL (0.6-1.3); GLUCOSE 98 mg/dL (74-106); POTASSIUM - SERUM 4.3 mmol/L (3.5-5.1); PROTEIN - SERUM 5.7 g/dL (6.4-8.2); SODIUM 136 mmol/L (136-145); eGFR NON AFRICAN AMERICAN > 90 mL/min (90-120)
[2019-03-11 06:29] LABS: CALC OSMOLALITY 272 mosm/kg (275-300); UREA NITROGEN 14 mg/dL (7-18)
[2019-03-11 06:33] LABS: BASOPHILS 0.1 % (0-2); EOSINOPHILS 0.7 % (0-7); HEMOGLOBIN 11.5 g/dL (12-16); IMMATURE GRANULOCYTES 0.2 % (0-5); LYMPHOCYTES 6.6 % (15-50); MCH 30.6 pg (26.0-34.0); MCHC 31.9 g/dL (31.0-37.0); MCV 95.7 fL (80.0-100.0); MEAN PLATELET VOLUME 11.6 fL (7.4-10.4); MONOCYTES 11.1 % (2-11); NEUTROPHILS 81.3 % (40-80); PLATELET COUNT 236 10x3/uL (130-400); RBC 3.76 10x6/uL (4.00-5.40); RDW 13.7 % (11.5-14.5)
--- NOTE | 2019-03-11 07:10 | NUR ---
PT RESTING IN BED. NO SIGNS OF DISTRESS. IV TO LEFT FORARM PATENT NO REDNESS OR TENDERNESS. ON 2L NC. ON TELEMTRY 123 UNCONTROLLED A FIB. COMPLAINS OF PAIN, MEDICATION GIVEN. DENIES ANY FURTHER NEED AT THIS TIME,. FAMILY AT BEDSIDE.
[2019-03-11 08:31] VITALS: BP 140/74
--- NOTE | 2019-03-11 09:00 | NUR ---
NOTIFED DR COLES OF PT HEART RATE OF 123 UNCONTROLLED A FIB AND NOT PT NORMAL GAVE NEW ORDERS. PT LATER RETURNED TO 91 CONTROLLED A FIB.
[2019-03-11 10:21] LABS: MAGNESIUM - SERUM 1.7 mg/dL (1.8-2.4); THYROID STIMULATING HORMONE 1.6 uIU/mL (0.36-3.74)
[2019-03-11 13:36] VITALS: BP 132/68
[2019-03-11 17:27] VITALS: BP 134/54
[2019-03-11 18:13] LABS: ALBUMIN 2.2 g/dL (3.4-5.0); ANION GAP 10.9 mmol/L (8-16); BILIRUBIN - TOTAL 0.85 mg/dL (0.2-1.3); CALCIUM 8.2 mg/dL (8.5-10.1); CARBON DIOXIDE 28.4 mmol/L (21.0-32.0); POTASSIUM - SERUM 4.3 mmol/L (3.5-5.1); PROTEIN - SERUM 5.8 g/dL (6.4-8.2)
[2019-03-11 18:18] LABS: CREATININE - SERUM 0.8 mg/dL (0.6-1.3)
--- NOTE | 2019-03-11 18:36 | NUR ---
I have reviewed this patient and I concur with the Shift Assessment completed by the Licensed Practical Nurse today this shift.
[2019-03-11 19:30] VITALS: BP 136/66
--- NOTE | 2019-03-12 00:10 | NUR ---
PATIENT WENT INTO UNCONTROLLED A-FIB RUNNING A RATE OF 120-150'S. CONSULTED WITH CHARGE NURSE AND WE WAITED AND CHECKED HER HEART RATE AGAIN AFTER 30 MIN. 0040 HEART RYTHYM WAS 96 CONTROLLED A-FIB WILL CONTINUE TO MONITOR.CALL LIGHT IN REACH. BED RAILS X2. PATIENT WAS ENCOURAGED TO CALL WITH ANY NEEDS.
[2019-03-12 00:30] VITALS: BP 157/70
--- NOTE | 2019-03-12 01:15 | NUR ---
PATIENT REFUSES TO WEAR SCD'S.
--- NOTE | 2019-03-12 04:38 | NUR ---
PATIENT IN UNCONTROLLED A-FIB. CALLED THE DOCTOR, HE ORDERED A CARDIZEM DRIP AND FOR THE PATIENT TO BE TRANSFERED TO PCU.
[2019-03-12 04:53] LABS: BASOPHILS 0.1 % (0-2); EOSINOPHILS 0.4 % (0-7); HEMATOCRIT 32.5 % (36.0-48.0); HEMOGLOBIN 10.4 g/dL (12-16); IMMATURE GRANULOCYTES 0.3 % (0-5); LYMPHOCYTES 5.4 % (15-50); MCH 30.4 pg (26.0-34.0); MONOCYTES 11.2 % (2-11); NEUTROPHILS 82.6 % (40-80); PLATELET COUNT 258 10x3/uL (130-400); RBC 3.42 10x6/uL (4.00-5.40); RDW 13.5 % (11.5-14.5); WBC 13.9 10x3/uL (4.8-10.8)
[2019-03-12 05:00] VITALS: BP 159/81
[2019-03-12 05:16] LABS: ALBUMIN 1.9 g/dL (3.4-5.0); ALKALINE PHOSPHATASE 66 U/L (46-116); ALT (SGPT) 17 U/L (10-68); BILIRUBIN - TOTAL 0.72 mg/dL (0.2-1.3); CALC OSMOLALITY 274 mosm/kg (275-300); CALCIUM 8.1 mg/dL (8.5-10.1); CARBON DIOXIDE 26.6 mmol/L (21.0-32.0); CHLORIDE - SERUM 100 mmol/L (98-107); CREATININE - SERUM 0.7 mg/dL (0.6-1.3); GLUCOSE 113 mg/dL (74-106); POTASSIUM - SERUM 3.7 mmol/L (3.5-5.1); PROTEIN - SERUM 5.9 g/dL (6.4-8.2); SODIUM 137 mmol/L (136-145); UREA NITROGEN 12 mg/dL (7-18); eGFR NON AFRICAN AMERICAN 84 mL/min (90-120)
--- NOTE | 2019-03-12 07:29 | MORECARE ---
CASE MANAGEMENT DISCHARGE SUMMARY PATIENT: PRATIBHA MCKINLEY UNIT: [id number] ADM DATE: 03/10/19 AGE: 83 : 34 SEX: F ROOM/BED: D.2997 AUTHOR: COY DENTON PHYSICIAN: REFERRING PHYSICIAN: MIRIAM WARREN MD DATE OF SERVICE: 03/12/19 Discharge Plan Patient Name: PRATIBHA MCKINLEY Facility: [facility]:[place] : 1935 Planned Disposition: Home Anticipated Discharge Date: Discharge Date: Expected LOS: Initial Reviewer: [email or web address] Initial Review Date: 03/09/2019 Generated: 03/12/19 8:28 am DCP- Discharge Planning Updated by [email or web address]: Leidy Velázquez on 03/10/19 8:[address] SPOKE WITH PATIENT'S DAUGHTER ABOUT HOSPICE, SHE STATED THAT THEY ARE WAITING TO SPEAK WITH IR ABOUT A CHEMO 1 TIME TREATMENT, BEFORE MAKING THE HOSPICE DECISION. SHE STATED THAT SHE WOULD LIKE TO SEE THE OF HER GREAT GREAT GRANDCHILDREN AND THIS ONE TIME TX COULD MAINTENANCE JOB TITLES HER UP TO A YEAR. CM WILL WAIT TILL AFTER IR CONSULT TO SEE DC PLAN DCP- Discharge Planning Updated by [email or web address]: Megha Segura on 03/09/19 6:[address] Visit with family for SEGURA signature. Daughter's had questions regarding home hospice. Verbal information provided. Family states they have some decisions to make. Order pending for HOME HOSPICE. Provided printed information and Patient Choice list for hospices available. Coverage Notice Reviewer: [id number] - Megha Segura Notice Issued Date-Time: 03/09/2019 16:45 Notice Type: Medicare Outpatient Observation Notice Notice Delivered To: Family Member Relationship to Patient: Daughter Board Design Engineer Name: Pratibha Mckinley Iliana Pet Delivery Method: - Nani Days: Prior Verbal Notification: Recipient Understood Notice: Recipient Signature: Med Rec Note Co-signed by Attending: Coverage Notice Comment: Last DP export: 03/10/19 8:06 a Patient Name: PRATIBHA MCKINLEY Page 70149 at 0729 All edits/amendments must be made on the electronic document DICTATION DATE: 03/12/19727 AUTO TESTER: DM 03/12/19727 RPT#: [id number] DC DATE: STATUS: ADM IN [facility] [address] [place] [address] END OF REPORT
[2019-03-12 08:00] VITALS: BP 131/71
--- NOTE | 2019-03-12 10:44 | NUR ---
PRE-OPS GIVEN. TO IR BY BED.
--- NOTE | 2019-03-12 12:20 | NUR ---
BACK FROM IR. VS WNL. RIGHT GROIN STABLE WITHOUT BLEEDING OR HEMATOMA NOTED. WILL MONITOR.
[2019-03-12 16:00] VITALS: BP 142/74
--- NOTE | 2019-03-12 16:01 | NUR ---
BED REST UP. GROIN STABLE.
[2019-03-12 20:00] VITALS: BP 138/76
--- NOTE | 2019-03-12 20:20 | NUR ---
EVENING ROUNDS COMPLETED. VSS, ALERT WITH MILD CONFUSION. PT DENIES NAUSEA AT THIS TIME. DENIES PAIN AT PROCEDURE SITE. PT IS COMFORTABLY RESTING IN BED, DAUGHTER AT BEDSIDE. CARDIZEM INFUSING @5MLS/HR. BED ALARM ON. 73 A-FIB ON MONITOR. WILL CPOC. CL WITHIN REACH, BED IN LOW, SR UP X2.
[2019-03-12 23:30] VITALS: BP 125/80
[2019-03-13 04:00] VITALS: BP 143/80
--- NOTE | 2019-03-13 04:24 | NUR ---
PT PULLED OUT PIV ON LFA. ALTHOUGH PT STILL HAS A PIV ON LFA. PT STILL CONFUSED. BED ALARM ON. WILL CTM.
--- NOTE | 2019-03-13 05:09 | NUR ---
ASSIST PT ON BED HAIDER. CLEANED PT UP AND PERFORMED PERINEAL CARE. FRESH GOWN AND LINEN PROVIDED BY ABAP DEVELOPER.
[2019-03-13 05:51] LABS: HEMATOCRIT 36.8 % (36.0-48.0); HEMOGLOBIN 12.1 g/dL (12-16); LYMPHOCYTES 3.7 % (15-50); MCH 30.6 pg (26.0-34.0); MCHC 32.9 g/dL (31.0-37.0); MEAN PLATELET VOLUME 10.7 fL (7.4-10.4); NEUTROPHILS 91.9 % (40-80); PLATELET COUNT 254 10x3/uL (130-400); RBC 3.96 10x6/uL (4.00-5.40); RDW 13.4 % (11.5-14.5); WBC 12.2 10x3/uL (4.8-10.8)
[2019-03-13 06:06] LABS: ALKALINE PHOSPHATASE 81 U/L (46-116); ALT (SGPT) 21 U/L (10-68); BILIRUBIN - TOTAL 0.42 mg/dL (0.2-1.3); CALC OSMOLALITY 281 mosm/kg (275-300); CALCIUM 8.8 mg/dL (8.5-10.1); CARBON DIOXIDE 27.5 mmol/L (21.0-32.0); CHLORIDE - SERUM 104 mmol/L (98-107); CREATININE - SERUM 0.6 mg/dL (0.6-1.3); GLUCOSE 150 mg/dL (74-106); POTASSIUM - SERUM 3.8 mmol/L (3.5-5.1); PROTEIN - SERUM 6.5 g/dL (6.4-8.2); SODIUM 139 mmol/L (136-145); UREA NITROGEN 14 mg/dL (7-18); eGFR NON AFRICAN AMERICAN > 90 mL/min (90-120)
[2019-03-13 06:28] LABS: MCV 92.9 fL (80.0-100.0)
--- NOTE | 2019-03-13 07:10 | NUR ---
REPORT RECEIVED FROM TALEND ETL DEVELOPER AND PATIENT CARE ASSUMED. PATIENT LAYING IN BED ON LT SIDE WITH EYES CLOSED AND BREATHING EVENLY. PATIENT IS STABLE AND VSS. DTR AT BS. WILL CONTINUE WITH PLAN OF CARE. SR UP X 2 BED IN LOW POSITION AND CALL LIGHT IN REACH.
[2019-03-13 08:03] VITALS: BP 124/64
--- NOTE | 2019-03-13 10:50 | NUR ---
PATIENT IS STABLE AND VSS. PATIENT UP TO BR TO VOID. PATIENT DENIES ANY NEEDS OR PAIN. DTR AT BS. WILL CONTINUE TO MONITOR. SR UP X 2 BED IN LOW POSITION AND CALL LIGHT IN REACH.
[2019-03-13 12:19] VITALS: BP 124/71
--- NOTE | 2019-03-13 14:26 | NUR ---
Nutrition Follow-up: Family reports PO intake improving; ~25% of breakfast eaten this AM per record. Denies N/V. Agreed to drink Ensure. Noted TACE done 03/12. Diet: Cardiac Wt: 143# Last BM: 03/13 Labs noted: Glu 150, Alb 2.0 Meds noted: LR @ 75, Lasix, Miralax -+Ensure (vanilla) with meals -MD may consider appetite stimulant. -RD following.
--- NOTE | 2019-03-13 15:08 | NUR ---
PATIENT UP TO BR TO VOID. STILL NEED STOOL SPECIMEN. DTR AT BS. PATIENT IS STABLE AND VSS. WILL CONTINUE TO MONITOR. SR UP X 2 BED IN LOW POSITION AND CALL LIGHT IN REACH.
[2019-03-13 16:10] VITALS: BP 113/66
[2019-03-13 20:00] VITALS: BP 119/70
--- NOTE | 2019-03-13 20:00 | NUR ---
EVENING ROUNDS COMPLETED. VSS, ALERT BUT CONFUSED. PT PIV INFILTRATED. SWELLING NOTED AROUND IV SITED. PRESSURE APPLIED AND TAPED. RESTARTED A NEW PIV R.WRIST 22G X1 STICK. PT TOLERATE WELL. CARDIZEM INFUSING @ 5MLS/HR. LR @ 75. FAMILY AT BEDSIDE. WILL CPOC.
[2019-03-14] VITALS: BP 118/67
--- NOTE | 2019-03-14 01:53 | NUR ---
PT APPEAR CONTINUOUSLY CONFUSED. PT DAUGHTER STATES SHE IS GOING HOME TO REST AT THIS TIME. PROVIDED FRESH LINEN FOR PT AT THIS TIME.
[2019-03-14 06:25] LABS: ALBUMIN 1.9 g/dL (3.4-5.0); ALKALINE PHOSPHATASE 79 U/L (46-116); BILIRUBIN - TOTAL 0.31 mg/dL (0.2-1.3); CALCIUM 8.5 mg/dL (8.5-10.1); CARBON DIOXIDE 27.8 mmol/L (21.0-32.0); CHLORIDE - SERUM 106 mmol/L (98-107); CREATININE - SERUM 0.7 mg/dL (0.6-1.3); GLUCOSE 152 mg/dL (74-106); POTASSIUM - SERUM 3.9 mmol/L (3.5-5.1); PROTEIN - SERUM 5.8 g/dL (6.4-8.2); SODIUM 142 mmol/L (136-145); eGFR NON AFRICAN AMERICAN 84 mL/min (90-120)
[2019-03-14 06:26] LABS: BASOPHILS 0 % (0-2); EOSINOPHILS 0 % (0-7); HEMATOCRIT 33.8 % (36.0-48.0); IMMATURE GRANULOCYTES 0.4 % (0-5); LYMPHOCYTES 3.9 % (15-50); MCH 30.3 pg (26.0-34.0); MCHC 32.5 g/dL (31.0-37.0); MCV 93.1 fL (80.0-100.0); MEAN PLATELET VOLUME 10.8 fL (7.4-10.4); MONOCYTES 4.3 % (2-11); NEUTROPHILS 91.4 % (40-80); RBC 3.63 10x6/uL (4.00-5.40); RDW 13.4 % (11.5-14.5)
[2019-03-14 06:27] LABS: ALT (SGPT) 39 U/L (10-68); CALC OSMOLALITY 291 mosm/kg (275-300); PLATELET COUNT 333 10x3/uL (130-400); UREA NITROGEN 28 mg/dL (7-18); WBC 16.6 10x3/uL (4.8-10.8)
--- NOTE | 2019-03-14 08:00 | NUR ---
SLEEPING BUT AWAKES ZAIN. 02 5 L/M PER NC. RIGHT FA IV WITH CARDIZEM AT 5. TELEMERTY SHOWS UCAF 133. FAMILY AT BEDSIDE. SR UP WITH CALL LIGHT IN REACH
[2019-03-14 08:05] VITALS: BP 108/72
--- NOTE | 2019-03-14 12:56 | NUR ---
CARDIZEM 10MG IV GIVEN FOR HR OF 170. B/P 130/70.
[2019-03-14 13:15] VITALS: BP 113/79
--- NOTE | 2019-03-14 13:51 | MORECARE ---
CASE MANAGEMENT DISCHARGE SUMMARY PATIENT: PRATIBHA MCKINLEY UNIT: [id number] ADM DATE: 03/10/19 AGE: 83 : 34 SEX: F ROOM/BED: D.8523 AUTHOR: COY DENTON PHYSICIAN: REFERRING PHYSICIAN: MIRIAM WARREN MD DATE OF SERVICE: 03/14/19 Discharge Plan Patient Name: PRATIBHA MCKINLEY Facility: [facility]:[place] : 1935 Planned Disposition: Home with Home Health Anticipated Discharge Date: Discharge Date: Expected LOS: Initial Reviewer: [id number] Initial Review Date: 03/09/2019 Generated: 03/14/19 2:51 pm Comments DCP- Discharge Planning Updated by [email or web address]: Edgar Nelson on 03/14/19 12:[address] Patient Name: PRATIBHA MCKINLEY Encounter No: [id number] : 1935 Primary Insurance: MEDICARE A & B Anticipated DC Date: Planned Disposition: Home with Home Health External Planned Provider: WAITING ON FAMILY CHOICE AND PHYSICIAN ORDER DCP follow-up note: CM MET WITH PT AND DAUGHTER, HENRY, IN ROOM TO DISCUSS DISCHARGE NEEDS AND PLANNING. PT CONFUSED, INITIALLY REPORTS SHE LIVES WITH HER SPOUSE AND CHILDREN; HENRY REPORTS PT'S SPOUSE IS AND ALL CHILDREN GROWN, PT LIVES ALONE. CM DISCUSSED AVAILABILITY OF HOME HEALTH, REHAB SERVICES AND MEDICAL EQUIPMENT. PT REPORTS PLAN TO RETURN HOME. PT LIVES ALONE WITH HER DAUGHTER HENRY WHO LIVES NEXT DOOR ASSISTS WITH MEDICATIONS AND BATHING. PT HAS CANE AND WALKER WITH NO MEDICAL EQUIPMENT PROVIDER PREFERENCE. PT HAS NO OUTSIDE SERVICES ASSISTING IN THE HOME PRIOR TO HOSPITLA STAY. CM DISCUSSED PENITENTIARY FACILITY, HOSPICE, HOME HEALTH SERVICES AND MEDICAL EQUIPMENT AVAILABILITY. FAMILY HAS NOT WANT TO DISCUSS HOSPICE, AND IS CONSIDERING PT GOING HOME WITH HOME HEALTH, MAY NEED OXYGEN FOR DISCHARGE. THEY HAVE NO CURRENT PREFERENCES ON PROVIDERS AND WILL DISCUSS THIS WITH FAMILY. CM PROVIDED PROVIDER LISTINGS FOR HOME HEALTH AND MEDICAL EQUIPMENT. CM PROVIDED AND DISCUSSED LIVING WILL INFORMATION, INFORMED OF NOTARY AVAILABILITY. IMPORTANT MESSAGE FROM MEDICARE PROVIDED AND EXPLAINED. CM TO FOLLOW AND ASSIST NEEDED. PT MAY NEED OXYGEN FOR DISCHARGE HOME. PT AND FAMILY ARE PLANNING FOR PT TO GO HOME WITH FAMILY ASSISTANCE AND HOME HEALTH. WAITING ON CHOICE FROM FAMILY FOR HOME HEALTH PROVIDER; CM TO ASSIST WITH PHYSICIAN AGREEMENT AND ORDERS. Edgar Nelson, CASE MANAGEMENT DCP- Discharge Planning Updated by [id number]: Leidy Velázquez on 03/10/19 8:[address] SPOKE WITH PATIENT'S DAUGHTER ABOUT HOSPICE, SHE STATED THAT THEY ARE WAITING TO SPEAK WITH IR ABOUT A CHEMO 1 TIME TREATMENT, BEFORE MAKING THE HOSPICE DECISION. SHE STATED THAT SHE WOULD LIKE TO SEE THE OF HER GREAT GREAT GRANDCHILDREN AND THIS ONE TIME TX COULD COLLEGE FOOTBALL COACH HER UP TO A YEAR. CM WILL WAIT TILL AFTER IR CONSULT TO SEE DC PLAN DCP- Discharge Planning Updated by [email or web address]: Megha Segura on 03/09/19 6:[address] Visit with family for SEGURA signature. Daughter's had questions regarding home hospice. Verbal information provided. Family states they have some decisions to make. Order pending for HOME HOSPICE. Provided printed information and Patient Choice list for hospices available. Coverage Notice Reviewer: [id number] Maya Segura Notice Issued Date-Time: 03/09/2019 16:45 Notice Type: Medicare Outpatient Observation Notice Notice Delivered To: Family Member Relationship to Patient: Daughter Deputy Sheriff Generalist Name: Pratibha Burt Delivery Method: - Nani Days: Prior Verbal Notification: Recipient Understood Notice: Recipient Signature: Med Rec Note Co-signed by Attending: Coverage Notice Comment: Reviewer: [id number] Maya Nelson Notice Issued Date-Time: 03/13/2019 12:09 Notice Type: IM Discharge Notice Notice Delivered To: Family Member Relationship to Patient: Daughter Deputy Sheriff Generalist Name: HENRY MCKINLEY Delivery Method: HAND - Hand Delivered Nani Days: Prior Verbal Notification: Recipient Understood Notice: Yes Recipient Signature: Yes Med Rec Note Co-signed by Attending: Coverage Notice Comment: Reviewer: [id number] Maya Nelson Notice Issued Date-Time: 03/14/2019 12:09 Notice Type: Patient Choice Letter Notice Delivered To: Family Member Relationship to Patient: Daughter Deputy Sheriff Generalist Name: HENRY MCKINLEY Delivery Method: HAND - Hand Delivered Nani Days: Prior Verbal Notification: Recipient Understood Notice: Recipient Signature: Med Rec Note Co-signed by Attending: Coverage Notice Comment: WAITING CHOICE FOR DME AND HOME HEALTH Last DP export: 03/12/19 6:28 a Patient Name: PRATIBHA MCKINLEY Page [phone] at 1351 All edits/amendments must be made on the electronic document DICTATION DATE: 03/14/19 1351 ENVIRONMENTAL HEALTH OFFICER: SAIGE 03/14/19 1351 RPT#: [id number] DC DATE: STATUS: ADM IN [facility] [address] [place] [address] END OF REPORT
--- NOTE | 2019-03-14 14:00 | MORECARE ---
CASE MANAGEMENT DISCHARGE SUMMARY PATIENT: PRATIBHA MCKINLEY UNIT: [id number] ADM DATE: 03/10/19 AGE: 83 : 34 SEX: F ROOM/BED: D.7801 AUTHOR: COY DENTON PHYSICIAN: REFERRING PHYSICIAN: MIRIAM WARREN MD DATE OF SERVICE: 03/14/19 Discharge Plan Patient Name: PRATIBHA MCKINLEY Facility: [facility]:[place] : 1935 Planned Disposition: Home with Home Health Anticipated Discharge Date: Discharge Date: Expected LOS: Initial Reviewer: [id number] Initial Review Date: 03/09/2019 Generated: 03/14/19 3:00 pm Comments DCP- Discharge Planning Updated by [id number]: Edgar Nelson on 03/14/19 12:[address] Patient Name: PRATIBHA MCKINLEY Encounter No: [id number] : 1935 Primary Insurance: MEDICARE A & B Anticipated DC Date: Planned Disposition: Home with Home Health External Planned Provider: WAITING ON FAMILY CHOICE AND PHYSICIAN ORDER DCP follow-up note: CM MET WITH PT AND DAUGHTER, HENRY, IN ROOM TO DISCUSS DISCHARGE NEEDS AND PLANNING. PT CONFUSED, INITIALLY REPORTS SHE LIVES WITH HER SPOUSE AND CHILDREN; HENRY REPORTS PT'S SPOUSE IS AND ALL CHILDREN GROWN, PT LIVES ALONE. CM DISCUSSED AVAILABILITY OF HOME HEALTH, REHAB SERVICES AND MEDICAL EQUIPMENT. PT REPORTS PLAN TO RETURN HOME. PT LIVES ALONE WITH HER DAUGHTER HENRY WHO LIVES NEXT DOOR ASSISTS WITH MEDICATIONS AND BATHING. PT HAS CANE AND WALKER WITH NO MEDICAL EQUIPMENT PROVIDER PREFERENCE. PT HAS NO OUTSIDE SERVICES ASSISTING IN THE HOME PRIOR TO HOSPITLA STAY. CM DISCUSSED GROUP HOME FACILITY, HOSPICE, HOME HEALTH SERVICES AND MEDICAL EQUIPMENT AVAILABILITY. FAMILY HAS NOT WANT TO DISCUSS HOSPICE, AND IS CONSIDERING PT GOING HOME WITH HOME HEALTH, MAY NEED OXYGEN FOR DISCHARGE. THEY HAVE NO CURRENT PREFERENCES ON PROVIDERS AND WILL DISCUSS THIS WITH FAMILY. CM PROVIDED PROVIDER LISTINGS FOR HOME HEALTH AND MEDICAL EQUIPMENT. CM PROVIDED AND DISCUSSED LIVING WILL INFORMATION, INFORMED OF NOTARY AVAILABILITY. IMPORTANT MESSAGE FROM MEDICARE PROVIDED AND EXPLAINED. CM TO FOLLOW AND ASSIST NEEDED. PT MAY NEED OXYGEN FOR DISCHARGE HOME. PT AND FAMILY ARE PLANNING FOR PT TO GO HOME WITH FAMILY ASSISTANCE AND HOME HEALTH. WAITING ON CHOICE FROM FAMILY FOR HOME HEALTH PROVIDER; CM TO ASSIST WITH PHYSICIAN AGREEMENT AND ORDERS. Edgar Nelson, CASE MANAGEMENT DCP- Discharge Planning Updated by [id number]: Leidy Velázquez on 03/10/19 8:[address] SPOKE WITH PATIENT'S DAUGHTER ABOUT HOSPICE, SHE STATED THAT THEY ARE WAITING TO SPEAK WITH IR ABOUT A CHEMO 1 TIME TREATMENT, BEFORE MAKING THE HOSPICE DECISION. SHE STATED THAT SHE WOULD LIKE TO SEE THE OF HER GREAT GREAT GRANDCHILDREN AND THIS ONE TIME TX COULD AS400 PROGRAMMER ANALYST HER UP TO A YEAR. CM WILL WAIT TILL AFTER IR CONSULT TO SEE DC PLAN DCP- Discharge Planning Updated by [id number]: Megha Segura on 03/09/19 6:[address] Visit with family for SEGURA signature. Daughter's had questions regarding home hospice. Verbal information provided. Family states they have some decisions to make. Order pending for HOME HOSPICE. Provided printed information and Patient Choice list for hospices available. DCPIA - Discharge Planning Initial Assessment Updated by [id number]: Edgar Nelson on 03/14/19 1:52 pm * Is the patient Alert and Oriented? No * How many steps to enter\exit or inside your home? * PCP DR. HULL * Pharmacy [facility] IN [place] * Preadmission Environment Home Alone * ADLs Independent * Equipment Cane Walker * Other Equipment NO MEDICAL EQUIPMENT PROVIDER PREFERENCE * List name and contact numbers for known caregivers / representatives who currently or will assist patient after discharge: HENRY MCKINLEY, DTR, * Verbal permission to speak to the caregivers and representatives has been obtained from the patient. Yes * Community resources currently utilized None * Please name any agencies selected above. NONE * Additional services required to return to the preadmission environment? Yes * Can the patient safely return to the preadmission environment? Yes * Has this patient been hospitalized within the prior 30 days at any hospital? No Coverage Notice Reviewer: [id number] - Edgar Nelson Notice Issued Date-Time: 03/13/2019 12:09 Notice Type: IM Discharge Notice Notice Delivered To: Family Member Relationship to Patient: Daughter Dialysis Rn Name: HENRY GRIERVALENTINAWILEY Delivery Method: HAND - Hand Delivered Nani Days: Prior Verbal Notification: Recipient Understood Notice: Yes Recipient Signature: Yes Med Rec Note Co-signed by Attending: Coverage Notice Comment: Reviewer: [id number] Maya Segura Notice Issued Date-Time: 03/09/2019 16:45 Notice Type: Medicare Outpatient Observation Notice Notice Delivered To: Family Member Relationship to Patient: Daughter Dialysis Rn Name: Pratibha Burt Delivery Method: - Nani Days: Prior Verbal Notification: Recipient Understood Notice: Recipient Signature: Med Rec Note Co-signed by Attending: Coverage Notice Comment: Reviewer: [id number] - Edgar Nelson Notice Issued Date-Time: 03/14/2019 12:09 Notice Type: Patient Choice Letter Notice Delivered To: Family Member Relationship to Patient: Daughter Dialysis Rn Name: EHNRY MCKINLEY Delivery Method: HAND - Hand Delivered Nani Days: Prior Verbal Notification: Recipient Understood Notice: Recipient Signature: Med Rec Note Co-signed by Attending: Coverage Notice Comment: WAITING CHOICE FOR DME AND HOME HEALTH Last DP export: 03/14/19 12:51 p Patient Name: PRATIBHA MCKINLEY Page [id number] at 1400 All edits/amendments must be made on the electronic document DICTATION DATE: 03/14/19 1400 SIGNALS INTELLIGENCE ANALYST: SAIGE 03/14/19 1400 RPT#: [id number] DC DATE: STATUS: ADM IN [facility] [address] [place] [address] END OF REPORT
--- NOTE | 2019-03-14 16:06 | NUR ---
I have reviewed this patient and I concur with the Shift Assessment completed by the Licensed Practical Nurse today this shift.
[2019-03-14 16:22] VITALS: BP 139/71
--- NOTE | 2019-03-14 19:36 | NUR ---
RECEIVED BEDSIDE REPORT. PATIENT ALERT AND ORIENTED, RESTING COMFORTABLY IN BED. RESPIRATIONS ARE EVEN AND UNLABORED. NO S/S OF DISTRESS. NO C/O PAIN. CALL LIGHT WITHIN REACH. WILL CPOC.
[2019-03-14 20:00] VITALS: BP 113/94
[2019-03-15] VITALS: BP 124/85
--- NOTE | 2019-03-15 04:28 | NUR ---
PATIENT APPEARS TO BE SLEEPING. RESPIRATIONS ARE EVEN AND UNLABORED. NO S/S OF DISTRESS. CALL LIGHT WITHIN REACH. WILL CPOC.
[2019-03-15 05:48] LABS: ANION GAP 12.1 mmol/L (8-16); CALCIUM 8.4 mg/dL (8.5-10.1); CARBON DIOXIDE 29.5 mmol/L (21.0-32.0); CREATININE - SERUM 0.8 mg/dL (0.6-1.3)
[2019-03-15 05:50] LABS: POTASSIUM - SERUM 4.6 mmol/L (3.5-5.1)
[2019-03-15 05:51] LABS: BASOPHILS 0 % (0-2); EOSINOPHILS 0 % (0-7); HEMOGLOBIN 10.5 g/dL (12-16); IMMATURE GRANULOCYTES 0.4 % (0-5); LYMPHOCYTES 3.7 % (15-50); MCH 30.2 pg (26.0-34.0); MCHC 31.8 g/dL (31.0-37.0); MCV 94.8 fL (80.0-100.0); MEAN PLATELET VOLUME 10.6 fL (7.4-10.4); NEUTROPHILS 90.9 % (40-80); PLATELET COUNT 383 10x3/uL (130-400); RBC 3.48 10x6/uL (4.00-5.40); RDW 13.8 % (11.5-14.5); WBC 14.2 10x3/uL (4.8-10.8)
[2019-03-15 08:01] VITALS: BP 106/69
--- NOTE | 2019-03-15 09:21 | NUR ---
AM MEDS GIVEN AT THIS TIME. PT RESTING COMFORTABLY IN BED, DENIES ANY NEEDS AT THIS TIME. CALL LIGHT IN REACH, NAD NOTED,W ILL CONTINUE TO MONITOR.
[2019-03-15 11:56] VITALS: BP 108/86
--- NOTE | 2019-03-15 15:08 | NUR ---
TRIED TO GET PT TO EAT LUNCH, PT STATED " I REALLY DON'T FEEL LIKE EATING RIGHT NOW." PT DENIES ANY NEEDS AT THIS TIME. CALL LIGHT IN REACH, NAD NOTED, WILL CONTINUE TO MONITOR.
[2019-03-15 15:43] VITALS: BP 122/82
--- NOTE | 2019-03-15 16:00 | NUR ---
HELPED PT TO BATHROOM AND BACK TO BED, PT MISSED THE HAT AND URINE SAMPLE WAS NOT ABLE TO BE COLLECTED.
--- NOTE | 2019-03-15 18:37 | NUR ---
HELPED PT TO BATHROOM AND BACK TO BED, UNABLE TO COLLECT URINE SAMPLE, DUE TO URINE BEING CONTAMINATED WITH STOOL.
--- NOTE | 2019-03-15 19:15 | NUR ---
RECEIVED REPORT, WILL ASSUME CARE OF PT, PT SLEEPING NO DISTRESS NOTICED AT THIS TIME, FAMILY SAID PT ONLY TAKE 6MG OF MELATONIN AT HOME, WILL GIVE 6 MG TONIGHT, BED IS LOW, SRX2, CALL LIGHT IN REACH, WILL CONTINUE PLAN OF CARE
[2019-03-15 20:30] VITALS: BP 144/83
--- NOTE | 2019-03-16 02:06 | NUR ---
I have reviewed this patient and I concur with the Shift Assessment completed by the Licensed Practical Nurse today this shift.
[2019-03-16] MEDS ORDERED: ZOLOFT25 MG PO (02:12)
[2019-03-16 04:57] LABS: BASOPHILS 0 % (0-2); EOSINOPHILS 0 % (0-7); HEMATOCRIT 34.7 % (36.0-48.0); HEMOGLOBIN 11.1 g/dL (12-16); IMMATURE GRANULOCYTES 0.5 % (0-5); LYMPHOCYTES 3.4 % (15-50); MCH 30.5 pg (26.0-34.0); MCV 95.3 fL (80.0-100.0); MEAN PLATELET VOLUME 10.3 fL (7.4-10.4); MONOCYTES 4.5 % (2-11); NEUTROPHILS 91.6 % (40-80); PLATELET COUNT 339 10x3/uL (130-400); RBC 3.64 10x6/uL (4.00-5.40); WBC 12.4 10x3/uL (4.8-10.8)
[2019-03-16 05:15] LABS: CALC OSMOLALITY 297 mosm/kg (275-300); CALCIUM 8.3 mg/dL (8.5-10.1); CHLORIDE - SERUM 106 mmol/L (98-107); CREATININE - SERUM 0.6 mg/dL (0.6-1.3); GLUCOSE 147 mg/dL (74-106); POTASSIUM - SERUM 4.7 mmol/L (3.5-5.1); SODIUM 144 mmol/L (136-145); UREA NITROGEN 36 mg/dL (7-18); eGFR NON AFRICAN AMERICAN > 90 mL/min (90-120)
--- NOTE | 2019-03-16 06:37 | NUR ---
PT SLEPT ALL NIGHT SO I NEVER GAVE MELATONIN
[2019-03-16 07:36] VITALS: BP 146/106
[2019-03-16 11:31] VITALS: BP 131/97
--- NOTE | 2019-03-16 12:47 | NUR ---
LT HAND IV LEAKING, D/C IV WITH CATHETER TIP INTACT. NEW 20G IV STARTED TO LT AC X1 STICK, PT TOLERATED WELL. DENIES ANY NEEDS AT THIS TIME. CALL LIGHT IN REACH, NA DNOTED, WILL CONTINUE TO MONITOR.
--- NOTE | 2019-03-16 13:18 | NUR ---
NEW ORDER FOR 10MG OF CARDIZEM BOLUS AND INCREASE CARDIZEM RATE TO 15ML/HR. PER DR. COX.
[2019-03-16 15:05] VITALS: BP 122/78
--- NOTE | 2019-03-16 15:10 | NUR ---
HELPED PT TO BATHROOM AND BACK TO BED, PT DENIES ANY OTHER NEEDS AT THIS TIME, CALL LIGHT IN REACH, NAD NOTED,W ILL CONTINUE TO MONITOR.
--- NOTE | 2019-03-16 19:15 | NUR ---
RECEIVED REPORT, WILL ASSUME CARE OF PT, SLEEPING, NO DISTRESS NOTICED AT THIS TIME, BED IS LOW, SRX2, CALL LIGHT IN REACH, WILL CONTINUE PLAN OF CARE
[2019-03-16 20:00] VITALS: BP 121/87
--- NOTE | 2019-03-16 21:59 | NUR ---
IAN SIERRA RESITED 23G,IV TO RFA, RAC-IV STILL GOOD, PT JUST KEEPS BENDING ARM SO IV KEEPS BEEPING
[2019-03-17] VITALS (7 sets, daily range): BP systolic 131–161; BP diastolic 63–109
--- NOTE | 2019-03-17 03:30 | NUR ---
I have reviewed this patient and I concur with the Shift Assessment completed by the Licensed Practical Nurse today this shift.
[2019-03-17 05:44] LABS: BASOPHILS 0.1 % (0-2); EOSINOPHILS 0 % (0-7); HEMATOCRIT 36.1 % (36.0-48.0); HEMOGLOBIN 11.4 g/dL (12-16); IMMATURE GRANULOCYTES 0.8 % (0-5); LYMPHOCYTES 2.8 % (15-50); MCH 29.8 pg (26.0-34.0); MCHC 31.6 g/dL (31.0-37.0); MCV 94.5 fL (80.0-100.0); MONOCYTES 3.1 % (2-11); NEUTROPHILS 93.2 % (40-80); PLATELET COUNT 400 10x3/uL (130-400); RBC 3.82 10x6/uL (4.00-5.40); WBC 14.1 10x3/uL (4.8-10.8)
[2019-03-17 06:14] LABS: CALC OSMOLALITY 295 mosm/kg (275-300); CALCIUM 8.8 mg/dL (8.5-10.1); CARBON DIOXIDE 30.4 mmol/L (21.0-32.0); CHLORIDE - SERUM 105 mmol/L (98-107); CREATININE - SERUM 0.7 mg/dL (0.6-1.3); GLUCOSE 144 mg/dL (74-106); POTASSIUM - SERUM 4.7 mmol/L (3.5-5.1); SODIUM 142 mmol/L (136-145); UREA NITROGEN 41 mg/dL (7-18); eGFR NON AFRICAN AMERICAN 84 mL/min (90-120)
--- NOTE | 2019-03-17 07:15 | NUR ---
AM ROUNDS- PT RESTING COMFORTABLY IN BED, A/O X4, RESP EVEN AND NONLABORED ON 5L. NEW BAG OF CARDIZEM HUNG TO INFUSE TO RT FA. LT AC INFUISNG LR AT 75CC/HR. PT DENIES ANY NEEDS AT THIS TIME, BEDSIDE RAILS X2, BED LOW AND LOCKED. BED ALARM ON, CALL LIGHT IN REACH, NAD NOTED,WILL CONTINUE PLAN OF CARE.
--- NOTE | 2019-03-17 11:19 | NUR ---
IMODIUM GIVEN FOR DIARRHEA AT THIS TIME. PT RESTING COMFORTABLY IN BED, DENIES ANY NEEDS AT THIS TIME, [facility], NAD NOTED, WILL CONTINUE TO MONITOR.
--- NOTE | 2019-03-17 11:45 | NUR ---
HELPED PT TO BATHROOM AND BACK TO BED, PT DENIES ANY OTHER NEEDS AT TIME. CALL LIGHT IN REACH, NAD NOTED, WILL CONTINUE TO MONITOR.
--- NOTE | 2019-03-17 12:47 | NUR ---
TALKED AQUILINO ASTORGA RN WITH IR, NEW ORDER TO C/D IV STERIODS AND START PT ON 40MG OF PREDNISONE DAILY STARTING IN AM.
--- NOTE | 2019-03-17 13:12 | NUR ---
PER DR. COLES START PT ON 80MG OF SOTALOL BID.
--- NOTE | 2019-03-17 14:07 | NUR ---
HELPED PT BATHROOM AND BACK TO BED, PT DENIES ANY OTHER NEEDS AT THIS TIME. CALL LIGHT IN REACH, NAD NOTED, WILL CONTINUE TO MONITOR.
--- NOTE | 2019-03-17 14:14 | MORECARE ---
CASE MANAGEMENT DISCHARGE SUMMARY PATIENT: PRATIBHA MCKINLEY UNIT: [id number] ADM DATE: 03/10/19 AGE: 83 : 34 SEX: F ROOM/BED: D.0502 AUTHOR: COY DENTON PHYSICIAN: REFERRING PHYSICIAN: MIRIAM WARREN MD DATE OF SERVICE: 03/17/19 Discharge Plan Patient Name: PRATIBHA MCKINLEY Facility: [facility]:[place] : 1935 Planned Disposition: Home with Home Health Anticipated Discharge Date: Discharge Date: Expected LOS: Initial Reviewer: [email or web address] Initial Review Date: 03/09/2019 Generated: 03/17/19 3:14 pm Comments DCP- Discharge Planning Updated by [id number]: Edgar Nelson on 03/14/19 12:[address] Patient Name: PRATIBHA MCKINLEY Encounter No: [id number] : 1935 Primary Insurance: MEDICARE A & B Anticipated DC Date: Planned Disposition: Home with Home Health External Planned Provider: WAITING ON FAMILY CHOICE AND PHYSICIAN ORDER DCP follow-up note: CM MET WITH PT AND DAUGHTER, HENRY, IN ROOM TO DISCUSS DISCHARGE NEEDS AND PLANNING. PT CONFUSED, INITIALLY REPORTS SHE LIVES WITH HER SPOUSE AND CHILDREN; HENRY REPORTS PT'S SPOUSE IS AND ALL CHILDREN GROWN, PT LIVES ALONE. CM DISCUSSED AVAILABILITY OF HOME HEALTH, REHAB SERVICES AND MEDICAL EQUIPMENT. PT REPORTS PLAN TO RETURN HOME. PT LIVES ALONE WITH HER DAUGHTER HENRY WHO LIVES NEXT DOOR ASSISTS WITH MEDICATIONS AND BATHING. PT HAS CANE AND WALKER WITH NO MEDICAL EQUIPMENT PROVIDER PREFERENCE. PT HAS NO OUTSIDE SERVICES ASSISTING IN THE HOME PRIOR TO HOSPITLA STAY. CM DISCUSSED SENIOR CARE FACILITY, HOSPICE, HOME HEALTH SERVICES AND MEDICAL EQUIPMENT AVAILABILITY. FAMILY HAS NOT WANT TO DISCUSS HOSPICE, AND IS CONSIDERING PT GOING HOME WITH HOME HEALTH, MAY NEED OXYGEN FOR DISCHARGE. THEY HAVE NO CURRENT PREFERENCES ON PROVIDERS AND WILL DISCUSS THIS WITH FAMILY. CM PROVIDED PROVIDER LISTINGS FOR HOME HEALTH AND MEDICAL EQUIPMENT. CM PROVIDED AND DISCUSSED LIVING WILL INFORMATION, INFORMED OF NOTARY AVAILABILITY. IMPORTANT MESSAGE FROM MEDICARE PROVIDED AND EXPLAINED. CM TO FOLLOW AND ASSIST NEEDED. PT MAY NEED OXYGEN FOR DISCHARGE HOME. PT AND FAMILY ARE PLANNING FOR PT TO GO HOME WITH FAMILY ASSISTANCE AND HOME HEALTH. WAITING ON CHOICE FROM FAMILY FOR HOME HEALTH PROVIDER; CM TO ASSIST WITH PHYSICIAN AGREEMENT AND ORDERS. Edgar Nelson, CASE MANAGEMENT DCP- Discharge Planning Updated by [id number]: Leidy Velázquez on 03/10/19 8:[address] SPOKE WITH PATIENT'S DAUGHTER ABOUT HOSPICE, SHE STATED THAT THEY ARE WAITING TO SPEAK WITH IR ABOUT A CHEMO 1 TIME TREATMENT, BEFORE MAKING THE HOSPICE DECISION. SHE STATED THAT SHE WOULD LIKE TO SEE THE OF HER GREAT GREAT GRANDCHILDREN AND THIS ONE TIME TX COULD THERAPY SITE COORDINATOR HER UP TO A YEAR. CM WILL WAIT TILL AFTER IR CONSULT TO SEE DC PLAN DCP- Discharge Planning Updated by [id number]: Megha Segura on 03/09/19 6:[address] Visit with family for SEGURA signature. Daughter's had questions regarding home hospice. Verbal information provided. Family states they have some decisions to make. Order pending for HOME HOSPICE. Provided printed information and Patient Choice list for hospices available. DCPIA - Discharge Planning Initial Assessment Updated by [id number]: Edgar Nelson on 03/14/19 1:52 pm * Is the patient Alert and Oriented? No * How many steps to enter\exit or inside your home? * PCP DR. HULL * Pharmacy [facility] IN [place] * Preadmission Environment Home Alone * ADLs Independent * Equipment Cane Walker * Other Equipment NO MEDICAL EQUIPMENT PROVIDER PREFERENCE * List name and contact numbers for known caregivers / representatives who currently or will assist patient after discharge: HENRY MCKINLEY, DTR, * Verbal permission to speak to the caregivers and representatives has been obtained from the patient. Yes * Community resources currently utilized None * Please name any agencies selected above. NONE * Additional services required to return to the preadmission environment? Yes * Can the patient safely return to the preadmission environment? Yes * Has this patient been hospitalized within the prior 30 days at any hospital? No External [facility]iders [facility] Next Contact Date: 03/17/2019 Service Request Date: Service Type: Resolution: Reviewer: Comments: Coverage Notice Reviewer: [id number] - Megha Segura Notice Issued Date-Time: 03/09/2019 16:45 Notice Type: Medicare Outpatient Observation Notice Notice Delivered To: Family Member Relationship to Patient: Daughter Manager Custom Name: Pratibha Mckinley Iliana Pet Delivery Method: - Nani Days: Prior Verbal Notification: Recipient Understood Notice: Recipient Signature: Med Rec Note Co-signed by Attending: Coverage Notice Comment: Reviewer: [id number] Neslon Notice Issued Date-Time: 03/13/2019 12:09 Notice Type: IM Discharge Notice Notice Delivered To: Family Member Relationship to Patient: Daughter Manager Custom Name: HENRY MCKINLEY Delivery Method: HAND - Hand Delivered Nani Days: Prior Verbal Notification: Recipient Understood Notice: Yes Recipient Signature: Yes Med Rec Note Co-signed by Attending: Coverage Notice Comment: Reviewer: CHEVY Nelson Notice Issued Date-Time: 03/14/2019 12:09 Notice Type: Patient Choice Letter Notice Delivered To: Family Member Relationship to Patient: Daughter Manager Custom Name: HENRY MCKINLEY Delivery Method: HAND - Hand Delivered Nani Days: Prior Verbal Notification: Recipient Understood Notice: Recipient Signature: Med Rec Note Co-signed by Attending: Coverage Notice Comment: WAITING CHOICE FOR DME AND HOME HEALTH Last DP export: 03/14/19 1:00 p Patient Name: PRATIBHA MCKINLEY Page [id number] at 1414 All edits/amendments must be made on the electronic document DICTATION DATE: 03/17/19 141 SENIOR SITE MANAGER: SAIGE 03/17/19 1414 RPT#: [id number] [place] DATE: STATUS: ADM IN [facility] [address] [place] [address] END OF REPORT
--- NOTE | 2019-03-17 14:25 | MORECARE ---
CASE MANAGEMENT DISCHARGE SUMMARY PATIENT: PRATIBHA MCKINLEY UNIT: [id number] ADM DATE: 03/10/19 AGE: 83 : 34 SEX: F ROOM/BED: D.7336 AUTHOR: COY DENTON PHYSICIAN: REFERRING PHYSICIAN: MIRIAM WARREN MD DATE OF SERVICE: 03/17/19 Discharge Plan Patient Name: PRATIBHA MCKINLEY Facility: [facility]:[place] : 1935 Planned Disposition: Home with Home Health Anticipated Discharge Date: Discharge Date: Expected LOS: Initial Reviewer: [id number] Initial Review Date: 03/09/2019 Generated: 03/17/19 3:24 pm Comments DCP- Discharge Planning Updated by [email or web address]: Edgar Nelson on 03/14/19 12:[address] Patient Name: PRATIBHA MCKINLEY Encounter No: [id number] : 1935 Primary Insurance: MEDICARE A & B Anticipated DC Date: Planned Disposition: Home with Home Health External Planned Provider: WAITING ON FAMILY CHOICE AND PHYSICIAN ORDER DCP follow-up note: CM MET WITH PT AND DAUGHTER, HENRY, IN ROOM TO DISCUSS DISCHARGE NEEDS AND PLANNING. PT CONFUSED, INITIALLY REPORTS SHE LIVES WITH HER SPOUSE AND CHILDREN; HENRY REPORTS PT'S SPOUSE IS AND ALL CHILDREN GROWN, PT LIVES ALONE. CM DISCUSSED AVAILABILITY OF HOME HEALTH, REHAB SERVICES AND MEDICAL EQUIPMENT. PT REPORTS PLAN TO RETURN HOME. PT LIVES ALONE WITH HER DAUGHTER HENRY WHO LIVES NEXT DOOR ASSISTS WITH MEDICATIONS AND BATHING. PT HAS CANE AND WALKER WITH NO MEDICAL EQUIPMENT PROVIDER PREFERENCE. PT HAS NO OUTSIDE SERVICES ASSISTING IN THE HOME PRIOR TO HOSPITLA STAY. CM DISCUSSED PRISON FACILITY, HOSPICE, HOME HEALTH SERVICES AND MEDICAL EQUIPMENT AVAILABILITY. FAMILY HAS NOT WANT TO DISCUSS HOSPICE, AND IS CONSIDERING PT GOING HOME WITH HOME HEALTH, MAY NEED OXYGEN FOR DISCHARGE. THEY HAVE NO CURRENT PREFERENCES ON PROVIDERS AND WILL DISCUSS THIS WITH FAMILY. CM PROVIDED PROVIDER LISTINGS FOR HOME HEALTH AND MEDICAL EQUIPMENT. CM PROVIDED AND DISCUSSED LIVING WILL INFORMATION, INFORMED OF NOTARY AVAILABILITY. IMPORTANT MESSAGE FROM MEDICARE PROVIDED AND EXPLAINED. CM TO FOLLOW AND ASSIST NEEDED. PT MAY NEED OXYGEN FOR DISCHARGE HOME. PT AND FAMILY ARE PLANNING FOR PT TO GO HOME WITH FAMILY ASSISTANCE AND HOME HEALTH. WAITING ON CHOICE FROM FAMILY FOR HOME HEALTH PROVIDER; CM TO ASSIST WITH PHYSICIAN AGREEMENT AND ORDERS. Edgar Nelson, CASE MANAGEMENT DCP- Discharge Planning Updated by [id number]: Leidy Velázquez on 03/10/19 8:[address] SPOKE WITH PATIENT'S DAUGHTER ABOUT HOSPICE, SHE STATED THAT THEY ARE WAITING TO SPEAK WITH IR ABOUT A CHEMO 1 TIME TREATMENT, BEFORE MAKING THE HOSPICE DECISION. SHE STATED THAT SHE WOULD LIKE TO SEE THE OF HER GREAT GREAT GRANDCHILDREN AND THIS ONE TIME TX COULD ADMINISTRATIVE SUPPORT ASSOC HER UP TO A YEAR. CM WILL WAIT TILL AFTER IR CONSULT TO SEE DC PLAN DCP- Discharge Planning Updated by [id number]: Megharenita Segura on 03/09/19 6:[address] Visit with family for SEGURA signature. Daughter's had questions regarding home hospice. Verbal information provided. Family states they have some decisions to make. Order pending for HOME HOSPICE. Provided printed information and Patient Choice list for hospices available. DCPIA - Discharge Planning Initial Assessment Updated by [id number]: Edgar Nelson on 03/14/19 1:52 pm * Is the patient Alert and Oriented? No * How many steps to enter\exit or inside your home? * PCP DR. HULL * Pharmacy [facility] IN [place] * Preadmission Environment Home Alone * ADLs Independent * Equipment Cane Walker * Other Equipment NO MEDICAL EQUIPMENT PROVIDER PREFERENCE * List name and contact numbers for known caregivers / representatives who currently or will assist patient after discharge: HENRY MCKINLEY, DTR, * Verbal permission to speak to the caregivers and representatives has been obtained from the patient. Yes * Community resources currently utilized None * Please name any agencies selected above. NONE * Additional services required to return to the preadmission environment? Yes * Can the patient safely return to the preadmission environment? Yes * Has this patient been hospitalized within the prior 30 days at any hospital? No Coverage Notice Reviewer: [id number] Maya Nelson Notice Issued Date-Time: 03/17/2019 13:15 Notice Type: IM Discharge Notice Notice Delivered To: Family Member Relationship to Patient: Daughter Pheresis Specialist Name: ANAMIKA GUTIÉRREZ Delivery Method: HAND - Hand Delivered Nani Days: Prior Verbal Notification: Recipient Understood Notice: Yes Recipient Signature: Yes Med Rec Note Co-signed by Attending: Coverage Notice Comment: Reviewer: [id number] Maya Nelson Notice Issued Date-Time: 03/13/2019 12:09 Notice Type: IM Discharge Notice Notice Delivered To: Family Member Relationship to Patient: Daughter Pheresis Specialist Name: HENRY MCKINLEY Delivery Method: HAND - Hand Delivered Nani Days: Prior Verbal Notification: Recipient Understood Notice: Yes Recipient Signature: Yes Med Rec Note Co-signed by Attending: Coverage Notice Comment: Reviewer: [id number] Maya Segura Notice Issued Date-Time: 03/09/2019 16:45 Notice Type: Medicare Outpatient Observation Notice Notice Delivered To: Family Member Relationship to Patient: Daughter Pheresis Specialist Name: Pratibha Mckinley Iliana Pet Delivery Method: - Nani Days: Prior Verbal Notification: Recipient Understood Notice: Recipient Signature: Med Rec Note Co-signed by Attending: Coverage Notice Comment: Reviewer: [id number] Nelson Notice Issued Date-Time: 03/17/2019 13:15 Notice Type: Patient Choice Letter Notice Delivered To: Family Member Relationship to Patient: Daughter Pheresis Specialist Name: ANAMIKA GUTIÉRREZ Delivery Method: HAND - Hand Delivered Nani Days: Prior Verbal Notification: Recipient Understood Notice: Yes Recipient Signature: Yes Med Rec Note Co-signed by Attending: Coverage Notice Comment: [facility] - NO PREFERENCE [facility] - NO PREFERENCE Reviewer: [id number] Nelson Notice Issued Date-Time: 03/14/2019 12:09 Notice Type: Patient Choice Letter Notice Delivered To: Family Member Relationship to Patient: Daughter Pheresis Specialist Name: HENRY MCKINLEY Delivery Method: HAND - Hand Delivered Nani Days: Prior Verbal Notification: Recipient Understood Notice: Recipient Signature: Med Rec Note Co-signed by Attending: Coverage Notice Comment: WAITING CHOICE FOR DME AND HOME HEALTH Last DP export: 03/17/19 1:14 p Patient Name: PRATIBHA MCKINLEY Page [id number] at 1425 All edits/amendments must be made on the electronic document DICTATION DATE: 03/17/191423 JBOSS ARCHITECT: SAIGE 03/17/191423 RPT#: [id number] DC DATE: STATUS: ADM IN [facility] [address] [place] [address] END OF REPORT
--- NOTE | 2019-03-17 14:34 | MORECARE ---
CASE MANAGEMENT DISCHARGE SUMMARY PATIENT: KATELYN MCKINLEY UNIT: [id number] ADM DATE: 03/10/19 AGE: 83 : 34 SEX: F ROOM/BED: D.8322 AUTHOR: BERTIN,DOC PHYSICIAN: REFERRING PHYSICIAN: MIRIAM WARREN MD DATE OF SERVICE: 03/17/19 Discharge Plan Patient Name: KATELYN MCKINLEY Facility: [facility]:[place] : 1935 Planned Disposition: Home with Home Health Anticipated Discharge Date: Discharge Date: Expected LOS: Initial Reviewer: [id number] Initial Review Date: 03/09/2019 Generated: 03/17/19 3:34 pm Comments DCP- Discharge Planning Updated by [id number]: Edgar Nelson on 03/17/19 1:[address] Patient Name: KATELYN MCKINLEY Encounter No: [id number] : 1935 Primary Insurance: MEDICARE A & B Anticipated DC Date: Planned Disposition: Home with Home Health External Planned Provider: [facility] DCP follow-up note: CM MET WITH PT AND DAUGHTER, ANAMIKA GUTIÉRREZ, IN ROOM AT FAMILY REQUEST. ANAMIKA INFORMED CM THAT THEY HAVE A PHARMACISTS IN THE FAMILY AND THINK THE STERIODS ARE AFFECTING PT'S HEAR RATE, WANT PT OFF THE STEROIDS JESUS. THEY WANT THE CARDIOVERSION JESUS. THEY WANT PT DISCHARGED HOME JESUS, TOMORROW IF POSSIBLE. CM NOTIFIED RAISA BARAHONA OF FAMILY REQUESTS. ANAMIKA DOES WANT HOME HEALTH, CHOICE SIGNED FOR [facility] OR NO PREFERENCE FOR HOME HEALTH PROVIDER; CHOICE SIGNED FOR [facility] OR NO PREFERENCE ON PROVIDER FOR OXYGEN SERVICE. IMPORTANT MESSAGE FROM MEDICARE PROVIDED AND EXPLAINED. CM CALLED [facility], , SPOKE TO LEILANI AND PROVIDED HOME HEALTH REFERRAL. CM FAXED REFERRAL TO [facility] AT [phone]. CM TO ARRANGE [facility] WITH PHYSICIAN AGREEMENT AND ORDERS. CM TO ARRANGE OXYGEN IF NEEDED WITH [facility] WHEN QUALIFYING OXYGEN TESTING AND PHYSICIAN ORDERS. Edgar Nelson CASE TREVOR DCP- Discharge Planning Updated by [id number]: Edgar Nelson on 03/14/19 12:[address] Patient Name: KATELYN MCKINLEY Encounter No: [id number] : 1935 Primary Insurance: MEDICARE A & B Anticipated DC Date: Planned Disposition: Home with Home Health External Planned Provider: WAITING ON FAMILY CHOICE AND PHYSICIAN ORDER DCP follow-up note: CM MET WITH PT AND DAUGHTER, HENRY, IN ROOM TO DISCUSS DISCHARGE NEEDS AND PLANNING. PT CONFUSED, INITIALLY REPORTS SHE LIVES WITH HER SPOUSE AND CHILDREN; HENRY REPORTS PT'S SPOUSE IS AND ALL CHILDREN GROWN, PT LIVES ALONE. CM DISCUSSED AVAILABILITY OF HOME HEALTH, REHAB SERVICES AND MEDICAL EQUIPMENT. PT REPORTS PLAN TO RETURN HOME. PT LIVES ALONE WITH HER DAUGHTER HENRY WHO LIVES NEXT DOOR ASSISTS WITH MEDICATIONS AND BATHING. PT HAS CANE AND WALKER WITH NO MEDICAL EQUIPMENT PROVIDER PREFERENCE. PT HAS NO OUTSIDE SERVICES ASSISTING IN THE HOME PRIOR TO HOSPITLA STAY. CM DISCUSSED ALF FACILITY, HOSPICE, HOME HEALTH SERVICES AND MEDICAL EQUIPMENT AVAILABILITY. FAMILY HAS NOT WANT TO DISCUSS HOSPICE, AND IS CONSIDERING PT GOING HOME WITH HOME HEALTH, MAY NEED OXYGEN FOR DISCHARGE. THEY HAVE NO CURRENT PREFERENCES ON PROVIDERS AND WILL DISCUSS THIS WITH FAMILY. CM PROVIDED PROVIDER LISTINGS FOR HOME HEALTH AND MEDICAL EQUIPMENT. CM PROVIDED AND DISCUSSED LIVING WILL INFORMATION, INFORMED OF NOTARY AVAILABILITY. IMPORTANT MESSAGE FROM MEDICARE PROVIDED AND EXPLAINED. CM TO FOLLOW AND ASSIST NEEDED. PT MAY NEED OXYGEN FOR DISCHARGE HOME. PT AND FAMILY ARE PLANNING FOR PT TO GO HOME WITH FAMILY ASSISTANCE AND HOME HEALTH. WAITING ON CHOICE FROM FAMILY FOR HOME HEALTH PROVIDER; CM TO ASSIST WITH PHYSICIAN AGREEMENT AND ORDERS. Edgar Nelson, CASE MANAGEMENT DCP- Discharge Planning Updated by [id number]: Leidy Velázquez on 03/10/19 8:[address] SPOKE WITH PATIENT'S DAUGHTER ABOUT HOSPICE, SHE STATED THAT THEY ARE WAITING TO SPEAK WITH IR ABOUT A CHEMO 1 TIME TREATMENT, BEFORE MAKING THE HOSPICE DECISION. SHE STATED THAT SHE WOULD LIKE TO SEE THE OF HER GREAT GREAT GRANDCHILDREN AND THIS ONE TIME TX COULD BLOOD OR BLOOD BANK TECHNICIAN HER UP TO A YEAR. CM WILL WAIT TILL AFTER IR CONSULT TO SEE DC PLAN DCP- Discharge Planning Updated by [id number]: Megha Segura on 03/09/19 6:[address] Visit with family for SEGURA signature. Daughter's had questions regarding home hospice. Verbal information provided. Family states they have some decisions to make. Order pending for HOME HOSPICE. Provided printed information and Patient Choice list for hospices available. DCPIA - Discharge Planning Initial Assessment Updated by [id number]: Edgar Nelson on 03/14/19 1:52 pm * Is the patient Alert and Oriented? No * How many steps to enter\exit or inside your home? * PCP DR. HULL * Pharmacy [facility] IN [place] * Preadmission Environment Home Alone * ADLs Independent * Equipment Cane Walker * Other Equipment NO MEDICAL EQUIPMENT PROVIDER PREFERENCE * List name and contact numbers for known caregivers / representatives who currently or will assist patient after discharge: HENRY MARVELCATE, DTR, * Verbal permission to speak to the caregivers and representatives has been obtained from the patient. Yes * Community resources currently utilized None * Please name any agencies selected above. NONE * Additional services required to return to the preadmission environment? Yes * Can the patient safely return to the preadmission environment? Yes * Has this patient been hospitalized within the prior 30 days at any hospital? No Coverage Notice Reviewer: [id number] Maya Nelson Notice Issued Date-Time: 03/17/2019 13:15 Notice Type: IM Discharge Notice Notice Delivered To: Family Member Relationship to Patient: Daughter Nuclear Medicine Tech Name: ANAMIKA GUTIÉRREZ Delivery Method: HAND - Hand Delivered Nani Days: Prior Verbal Notification: Recipient Understood Notice: Yes Recipient Signature: Yes Med Rec Note Co-signed by Attending: Coverage Notice Comment: Reviewer: [id number] Maya Nelson Notice Issued Date-Time: 03/13/2019 12:09 Notice Type: IM Discharge Notice Notice Delivered To: Family Member Relationship to Patient: Daughter Nuclear Medicine Tech Name: HENRY MCKINLEY Delivery Method: HAND - Hand Delivered Nani Days: Prior Verbal Notification: Recipient Understood Notice: Yes Recipient Signature: Yes Med Rec Note Co-signed by Attending: Coverage Notice Comment: Reviewer: [id number] Maya Segura Notice Issued Date-Time: 03/09/2019 16:45 Notice Type: Medicare Outpatient Observation Notice Notice Delivered To: Family Member Relationship to Patient: Daughter Nuclear Medicine Tech Name: Katelyn Barrientos Javed Delivery Method: - Nani Days: Prior Verbal Notification: Recipient Understood Notice: Recipient Signature: Med Rec Note Co-signed by Attending: Coverage Notice Comment: Reviewer: [id number] Maya Nelson Notice Issued Date-Time: 03/17/2019 13:15 Notice Type: Patient Choice Letter Notice Delivered To: Family Member Relationship to Patient: Daughter Nuclear Medicine Tech Name: ANAMIKA COONCE Delivery Method: HAND - Hand Delivered Nani Days: Prior Verbal Notification: Recipient Understood Notice: Yes Recipient Signature: Yes Med Rec Note Co-signed by Attending: Coverage Notice Comment: [facility] - NO PREFERENCE [facility] - NO PREFERENCE Reviewer: [id number] Maya Nelson Notice Issued Date-Time: 03/14/2019 12:09 Notice Type: Patient Choice Letter Notice Delivered To: Family Member Relationship to Patient: Daughter Nuclear Medicine Tech Name: HENRY MCKINLEY Delivery Method: HAND - Hand Delivered Nani Days: Prior Verbal Notification: Recipient Understood Notice: Recipient Signature: Med Rec Note Co-signed by Attending: Coverage Notice Comment: WAITING CHOICE FOR DME AND HOME HEALTH Last DP export: 03/17/19 1:25 p Patient Name: KATELYN MCKINLEY Page [id number] at 1434 All edits/amendments must be made on the electronic document DICTATION DATE: 03/17/19 143 TEST KITCHEN HOME ECONOMIST: SAIGE 03/17/19 1434 RPT#: [id number] DC DATE: STATUS: ADM IN [facility] [address] [place] [address] END OF REPORT
--- NOTE | 2019-03-17 19:26 | NUR ---
RECEIVED LAYING IN BED WITH EYES OPEN. ALERT AND ORIENTED. REQUIRES ASSIST TO AMBULATE. RIGHT AC SL.. RIGHT FA CARDIZEM AT 15CC/HR AND LEFT AC WITH LR AT 75CC/HR. TELEMETRY IN PLACE. DENIES ANY NEEDS AT THIS TIME.
[2019-03-18 00:30] VITALS: BP 143/94
[2019-03-18 04:43] VITALS: BP 152/102
--- NOTE | 2019-03-18 05:26 | NUR ---
PULLED OUT ALL 3 IV'S AND HAS TAKEN OFF TELEMTRY. ABLE TO RESTART ONE IV AND CARDIZEM CONTINUED. WILL ATTEMPT ANOTHER ONE OR REPORT TO ONCOMMING.
[2019-03-18 05:57] LABS: BASOPHILS 0 % (0-2); EOSINOPHILS 0 % (0-7); HEMATOCRIT 34.6 % (36.0-48.0); LYMPHOCYTES 2.2 % (15-50); MCH 30.2 pg (26.0-34.0); MCHC 31.8 g/dL (31.0-37.0); MCV 95.1 fL (80.0-100.0); MEAN PLATELET VOLUME 9.8 fL (7.4-10.4); MONOCYTES 3.8 % (2-11); RBC 3.64 10x6/uL (4.00-5.40); RDW 14.1 % (11.5-14.5); WBC 14.7 10x3/uL (4.8-10.8)
[2019-03-18 06:13] LABS: ANION GAP 7.9 mmol/L (8-16); CALCIUM 8.4 mg/dL (8.5-10.1)
[2019-03-18 06:14] LABS: CREATININE - SERUM 0.9 mg/dL (0.6-1.3); POTASSIUM - SERUM 3.9 mmol/L (3.5-5.1)
[2019-03-18 06:24] LABS: PLATELET COUNT 482 10x3/uL (130-400)
--- NOTE | 2019-03-18 07:37 | NUR ---
ALERT AND ORIENTED. TELEMERTY SHOWS CAF 107. O2 AT 3 L/M PER NC. LEFT HAND WITH CARDIZEM AT 15. UP WITH ASSIST. CALL LIGHT IN REACH AND SR UP
[2019-03-18 08:00] VITALS: BP 148/101
[2019-03-18 12:00] VITALS: BP 137/102
--- NOTE | 2019-03-18 13:13 | CN ---
PATIENT NAME:PRATIBHA MCKINLEY MEDICAL RECORD: [id number] : 33 LOCATION:D. D.2121 ADMIT DATE: 03/10/19 ACCOUNT: [id number] CONSULTING PHYSICIAN: MIRIAM BLANTON MD REFERRING PHYSICIAN: MIRIAM WARREN MD DATE OF CONSULTATION: 03/11/2019 HISTORY OF PRESENT ILLNESS: An 83-year-old lady with a history of hepatocellular carcinoma of the right lobe of the liver, admitted with abdominal pain and overall malaise, fatigue, and weakness. She has a history of atrial fibrillation as well as coronary artery disease, status post intervention to the LAD. LV function has been normal. She has had no recent anginal-type symptomatology. We were asked to see her preop for TACE. Again, she has had no cardiac symptomatology at this point. She had been cardioverted by 2 at this point in time, on rate control only. PAST MEDICAL HISTORY: Includes, 1. History of hypertension. 2. Coronary artery disease as described above. 3. Atrial fibrillation. 4. Hepatocellular carcinoma. ALLERGIES: None known. MEDICATIONS: Typically at home include diltiazem 120 mg p.o. day, lisinopril 20 mg p.o. day, Zoloft 50 daily. SOCIAL HISTORY: He lives at home, good family support. Nonsmoker. REVIEW OF SYSTEMS: The patient reports easy bruising but reports no swollen glands. The patient reports no fever, no night sweats, no significant weight gain, no significant weight loss. No significant exercise tolerance. The patient reports no dry eyes, no irritation, no vision change. Patient reports no difficulty hearing and no ear pain. Patient reports no frequent nose bleeds or nose and sinus problems. Patient reports on arm pain on exertion. No shortness of breath while lying down. No history of heart murmur. Patient reports no cough, no wheezing or coughing up blood. Patient reports no abdominal pain, no vomiting. Normal appetite. No diarrhea and not vomiting blood. No nausea and no constipation. Patient reports no incontinence. No difficulty urinating. No hematuria. No increased frequency. Patient reports no muscle aches. No weakness, no arthralgias, no back pain. No swelling of the extremities. Patient reports no abnormal mole, no jaundice, no rashes. Reports no loss of consciousness. No weakness and no numbness. No seizures, dizziness, or headaches. The patient reports no depression, no sleep disturbance, feeling safe in a relationship and no alcohol abuse. Patient reports on fatigue. Reports no runny nose or sinus pressure. No itching, no hives, and no frequent sneezing. PHYSICAL EXAMINATION: GENERAL: Somewhat chronically ill appearing, in no acute distress. VITAL SIGNS: Blood pressure 132/68, pulse 99 irregular. HEENT: Normocephalic, atraumatic. NECK: No bruits noted. HEART: Irregular, rates around 100, II/ systolic ejection murmur. LUNGS: Good air excursion. CONSULT REPORT [id number] ARLENPRATIBHA GRIFFIN ABDOMEN: Soft, mild tenderness. EXTREMITIES: Pulses are actually preserved, 2+ with no edema. DIAGNOSTIC DATA: ECG on admission shows minimal nonspecific ST-T changes, atrial fibrillation underlying rhythm. OVERALL IMPRESSION: Atrial fibrillation, rate somewhat elevated, think it is actually secondary to intravascular volume depletion, underlying illness, etc. No contraindication to surgery from a cardiovascular standpoint. We will give additional digoxin to help with rate control. Hopefully, post-procedure with hydration and increased p.o. intake, rates will be easier to control from that standpoint. TRANSINT:[id number] Voice Confirmation ID: [id number] DOCUMENT ID: [id number] MIRIAM BLANTON MD at 1313 CC: [id number] DICTATION DATE: 03/11/19 1356 MATHEMATICAL ENGINEERING TECHNICIAN: 03/11/19 1841 ADM IN [facility] [address] [place] [address]
--- NOTE | 2019-03-18 14:09 | NUR ---
Nutrition Follow-up: Not eating much. C/o early satiety and diarrhea. Denies N/V. Drinking some Ensure. Diet: Cardiac, Ensure TID PO intake: 0-25% (03/17-03/18) Wt: 146# (up from 143# on 03/13) Labs noted: Glu 133 Meds noted: Lasix, Zofran, LR @ 75, Prednisone, Imodium -Continue current diet/supplement as tolerated. -Rec may consider appetite stimulant. -RD following.
[2019-03-18 16:00] VITALS: BP 166/57
--- NOTE | 2019-03-18 16:00 | NUR ---
I have reviewed this patient and I concur with the Shift Assessment completed by the Licensed Practical Nurse today this shift.
--- NOTE | 2019-03-18 17:55 | NUR ---
FAMILY AT BEDSIDE HELPING PT EAT. TELEMERTY SHOWS.CAF. SR UP WITH CALL LIGHT IN REACH
--- NOTE | 2019-03-18 19:15 | NUR ---
RECEIVED BEDSIDE REPORT. PATIENT IS ALERT AND ORIENTED, RESTING COMFORTABLY IN BED. RESPIRATIONS ARE EVEN AND UNLABORED. NO S/S OF DISTRESS. NO C/O PAIN. DENIES NEEDS. FAMILY AT BEDSIDE. CALL LIGHT WITHIN REACH. WILL CPOC.
--- NOTE | 2019-03-18 21:57 | NUR ---
PATIENT PULLED OUT IV.
[2019-03-18 22:12] VITALS: BP 155/99
[2019-03-19 00:15] VITALS: BP 154/70
--- NOTE | 2019-03-19 03:43 | NUR ---
PATIENT GIVING PATIENT SECOND DOSE OF SOTALOL. PATIENT HR DROPPED TO THE HIGH 40'S TO LOW 50. PATIENT BP WNL. CARDIZEM DRIP STOPPED.
[2019-03-19 04:30] VITALS: BP 163/78
[2019-03-19 05:40] LABS: ANION GAP 12.1 mmol/L (8-16); CALCIUM 8.4 mg/dL (8.5-10.1); CARBON DIOXIDE 28.2 mmol/L (21.0-32.0); CREATININE - SERUM 0.8 mg/dL (0.6-1.3); POTASSIUM - SERUM 4.3 mmol/L (3.5-5.1)
[2019-03-19 06:58] LABS: HEMATOCRIT 35.9 % (36.0-48.0); HEMOGLOBIN 11.3 g/dL (12-16); MCH 30.3 pg (26.0-34.0); MCHC 31.5 g/dL (31.0-37.0); MCV 96.2 fL (80.0-100.0); PLATELET COUNT 474 10x3/uL (130-400); RBC 3.73 10x6/uL (4.00-5.40); RDW 14.1 % (11.5-14.5)
[2019-03-19 09:36] VITALS: BP 187/95
[2019-03-19 11:07] LABS: LYMPHOCYTES 10 % (15-50); MONOCYTES 6 % (2-11); NEUTROPHILS 82 % (40-80); PLATELET ESTIMATE INCREASED
[2019-03-19 11:08] LABS: ROULEAUX OCC
--- NOTE | 2019-03-19 11:09 | NUR ---
AMBULATES WITH PT ASSIST. TELEMETRY SR 61. UP TO CHAIR WITH CALL LIGHT IN REACH.
--- NOTE | 2019-03-19 14:03 | NUR ---
DR. BLANTON NOTIFIED. SB HR 48. DCD TIAZAC. WILL CONT. TO MONITOR.
[2019-03-19 14:47] VITALS: BP 179/79
[2019-03-19 20:00] VITALS: BP 179/89
--- NOTE | 2019-03-19 21:00 | NUR ---
PTS BLOOD PRESSURE IS 179/89, HEART RATE 58. CALLED DR. COX TO INFORM HIM, AND RECEIVED AN ORDER FOR CLONIDINE AND TO GIVE THE SCHEDULED DOSE OF BETAPACE. WILL CONTINUE TO MONITOR.
[2019-03-19 23:00] VITALS: BP 162/78
[2019-03-20] VITALS: BP 177/86
[2019-03-20 06:13] LABS: BASOPHILS 0.1 % (0-2); EOSINOPHILS 0.1 % (0-7); HEMOGLOBIN 11.8 g/dL (12-16); IMMATURE GRANULOCYTES 1.4 % (0-5); LYMPHOCYTES 2.6 % (15-50); MCH 29.9 pg (26.0-34.0); MCHC 31.9 g/dL (31.0-37.0); MEAN PLATELET VOLUME 10.4 fL (7.4-10.4); NEUTROPHILS 90.8 % (40-80); PLATELET COUNT 414 10x3/uL (130-400); RBC 3.94 10x6/uL (4.00-5.40); WBC 19.2 10x3/uL (4.8-10.8)
[2019-03-20 06:15] LABS: MCV 93.9 fL (80.0-100.0)
[2019-03-20 06:18] LABS: ALBUMIN 2.2 g/dL (3.4-5.0); ALKALINE PHOSPHATASE 141 U/L (46-116); ALT (SGPT) 129 U/L (10-68); BILIRUBIN - TOTAL 0.47 mg/dL (0.2-1.3); CALC OSMOLALITY 291 mosm/kg (275-300); CALCIUM 8.3 mg/dL (8.5-10.1); CHLORIDE - SERUM 103 mmol/L (98-107); CREATININE - SERUM 0.6 mg/dL (0.6-1.3); GLUCOSE 93 mg/dL (74-106); PROTEIN - SERUM 5.5 g/dL (6.4-8.2); SODIUM 141 mmol/L (136-145); UREA NITROGEN 43 mg/dL (7-18); eGFR NON AFRICAN AMERICAN > 90 mL/min (90-120)
[2019-03-20 06:25] LABS: CARBON DIOXIDE 35.3 mmol/L (21.0-32.0); POTASSIUM - SERUM 4.9 mmol/L (3.5-5.1)
--- NOTE | 2019-03-20 07:20 | NUR ---
RECIEVE REPORT. RESTING IN BED WITH EYES CLOSED. FAMILY AT BEDSIDE. NO SIGNS OF DISTRESS. CONTINUE PLAN OF CARE AND SAFETY PRECAUTIONS. SINUS RYTHM 85 ON TELEMETRY.
[2019-03-20 08:19] VITALS: BP 162/80
[2019-03-20 12:30] VITALS: BP 158/70
[2019-03-20 15:10] LABS: OVA + PARASITE EXAM Final report (())
[2019-03-20 15:31] VITALS: BP 151/71
--- NOTE | 2019-03-20 16:18 | NUR ---
ZYVOX 600MG BID #[id number] CALLED IN TO JALEESA PHARMACIST AT [facility] PHONE NUMBER [phone]. DOES NOT REQUIRE PRIOR AUTH. PATIENT PETERSON WITH INSURANCE IS $152.00. THEY DO HAVE THE GENERIC IN STOCK. PRESCRIBING MD IS DR. SERENA JACKSON.
[2019-03-20 16:24] LABS: APPEARANCE CLEAR (CLEAR); COLOR YELLOW (YELLOW)
[2019-03-20 16:26] LABS: BILIRUBIN NEGATIVE (NEGATIVE); GLUCOSE NEGATIVE (NEGATIVE); KETONE NEGATIVE (NEGATIVE); NITRITE NEGATIVE (NEGATIVE); PROTEIN NEGATIVE (NEGATIVE); UROBILINOGEN NORMAL (NORMAL)
--- NOTE | 2019-03-20 16:56 | NUR ---
PT RESTING QUIETLY IN BED WITH EYES SHUT. FAMILY AT BEDSIDE. ASSUMED CARE FOR THIS PT FROM [facility]IGO ROMERO. FAMILY DENIES ANY CURRENT NEEDS. WILL CTM.
--- NOTE | 2019-03-20 19:40 | NUR ---
ALERT AND ORIENTED TO SELF AND PLACE. PT SHOWS SOME MEMORY DEFICITS AND IS UNABLE TO FOLLOW FALL PRECAUTION INSTRUCTIONS. FALL PRECAUTIONS IN PLACE, WILL CONTINUE TO MONITOR.
[2019-03-20 20:00] VITALS: BP 164/82
[2019-03-20 23:00] VITALS: BP 168/82
--- NOTE | 2019-03-21 02:36 | NUR ---
I have reviewed this patient and I concur with the Shift Assessment completed by the Licensed Practical Nurse today this shift.
[2019-03-21 04:00] VITALS: BP 166/78
[2019-03-21 05:07] LABS: BASOPHILS 0.1 % (0-2); EOSINOPHILS 0.1 % (0-7); HEMATOCRIT 36.3 % (36.0-48.0); HEMOGLOBIN 11.5 g/dL (12-16); IMMATURE GRANULOCYTES 1.6 % (0-5); LYMPHOCYTES 4.6 % (15-50); MCH 29.7 pg (26.0-34.0); MCHC 31.7 g/dL (31.0-37.0); MCV 93.8 fL (80.0-100.0); MEAN PLATELET VOLUME 9.8 fL (7.4-10.4); MONOCYTES 5.7 % (2-11); NEUTROPHILS 87.9 % (40-80); PLATELET COUNT 360 10x3/uL (130-400); RBC 3.87 10x6/uL (4.00-5.40); RDW 14.2 % (11.5-14.5); WBC 19.8 10x3/uL (4.8-10.8)
[2019-03-21 05:48] LABS: ALBUMIN 1.9 g/dL (3.4-5.0); ALKALINE PHOSPHATASE 115 U/L (46-116); BILIRUBIN - TOTAL 0.33 mg/dL (0.2-1.3); CALC OSMOLALITY 284 mosm/kg (275-300); CALCIUM 7.9 mg/dL (8.5-10.1); CARBON DIOXIDE 32.8 mmol/L (21.0-32.0); CHLORIDE - SERUM 102 mmol/L (98-107); CREATININE - SERUM 0.7 mg/dL (0.6-1.3); GLUCOSE 86 mg/dL (74-106); PROTEIN - SERUM 5.1 g/dL (6.4-8.2); SODIUM 139 mmol/L (136-145); UREA NITROGEN 34 mg/dL (7-18); eGFR NON AFRICAN AMERICAN 84 mL/min (90-120)
[2019-03-21 05:51] LABS: ALT (SGPT) 84 U/L (10-68)
--- NOTE | 2019-03-21 07:32 | NUR ---
RECIEVED REPORT. PATIENT IS RESTING QUIETLY ON HER BACK. FAMILY AT BEDSIDE. 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 WILL CONTINUE TO MONITOR CLOSELY.
[2019-03-21 09:30] VITALS: BP 165/70
--- NOTE | 2019-03-21 09:52 | MORECARE ---
CASE MANAGEMENT DISCHARGE SUMMARY PATIENT: PRATIBHA MCKINLEY UNIT: [id number] ADM DATE: 03/10/19 AGE: 83 : 34 SEX: F ROOM/BED: D.2798 AUTHOR: COY DENTON PHYSICIAN: REFERRING PHYSICIAN: MIRIAM WARREN MD DATE OF SERVICE: 03/21/19 Discharge Plan Patient Name: PRATIBHA MCKINLEY Facility: [facility]:[place] : 1935 Planned Disposition: Home with Home Health Anticipated Discharge Date: 03/21/19 Discharge Date: Expected LOS: 11 Initial Reviewer: [id number] Initial Review Date: 03/09/2019 Generated: 03/21/19 10:51 am Comments DCP- Discharge Planning Updated by [id number]: Edgar Nelson on 03/21/19 8:[address] Patient Name: PRATIBHA MCKINLEY Admission Status: Elective Accout number: [id number] Admission Date: 03-10-2019 : 1935 Admission Diagnosis:LIVER CELL CARCINOMA Attending: STEVE Current LOS: 11 Anticipated DC Date: 03-21-2019 Planned Disposition: Home with Home Health Primary Insurance: MEDICARE A & B PLANNED EXTERANAL PROVIDER: [facility] LATE ENTRY FROM 03-20-19, 1550 HOURS Discharge Planning Comments: CM MET WITH PT AND DAUGHTER IN ROOM TO DISCUSS NEED OF ZYVOX, PT NOR DAUGHTER HAVE PT'S PRESCRIPTION DRUG CARD FOR CM TO CHECK TO SEE IF IT IS COVERED, HOW MUCH IT COSTS OR IF IT NEEDS PRIOR AUTHORIZATION. IMPORTANT MESSAGE FROM MEDICARE PROVIDED AND EXPLAINED. RIGO PEÑA CALLED PT'S PH[facility], MEDICATION IN STOCK, DOES NOT REQUIRE PRIOR AUTHORIZATION, COSTS $152.00. PT NOTIFIED, CM WROTE INFORMATION ON DRY ERASE BOARD IN ROOM FAMILY WAS NOT PRESENT. CM TO ARRANGE [facility] WITH PHYSICIAN AGREEMENT AND ORDERS. CM TO ARRANGE OXYGEN IF NEEDED WITH [facility] WHEN QUALIFYING OXYGEN TESTING AND PHYSICIAN ORDERS. Edgar Nelson CASE MANAGEMENT DCP- Discharge Planning Updated by [id number]: Edgar Nelson on 03/17/19 1:[address] Patient Name: PRATIBHA MCKINLEY Encounter No: [id number] : 1935 Primary Insurance: MEDICARE A & B Anticipated DC Date: Planned Disposition: Home with Home Health External Planned Provider: [facility] DCP follow-up note: CM MET WITH PT AND DAUGHTER, LEONILA GUTIÉRREZ, IN ROOM AT FAMILY REQUEST. LEONILA INFORMED CM THAT THEY HAVE A PHARMACISTS IN THE FAMILY AND THINK THE STERIODS ARE AFFECTING PT'S HEAR RATE, WANT PT OFF THE STEROIDS JESUS. THEY WANT THE CARDIOVERSION JESUS. THEY WANT PT DISCHARGED HOME JESUS, TOMORROW IF POSSIBLE. CM NOTIFIED RAISA BARAHONA OF FAMILY REQUESTS. LEONILA DOES WANT HOME HEALTH, CHOICE SIGNED FOR [facility] OR NO PREFERENCE FOR HOME HEALTH PROVIDER; CHOICE SIGNED FOR [facility] OR NO PREFERENCE ON PROVIDER FOR OXYGEN SERVICE. IMPORTANT MESSAGE FROM MEDICARE PROVIDED AND EXPLAINED. CM CALLED [facility], , SPOKE TO LEILANI AND PROVIDED HOME HEALTH REFERRAL. CM FAXED REFERRAL TO [facility] AT [phone]. CM TO ARRANGE [facility] WITH PHYSICIAN AGREEMENT AND ORDERS. CM TO ARRANGE OXYGEN IF NEEDED WITH [facility] WHEN QUALIFYING OXYGEN TESTING AND PHYSICIAN ORDERS. Edgar Nelson, CASE MANAGEMENT DCP- Discharge Planning Updated by [id number]: Edgar Nelson on 03/14/19 12:[address] Patient Name: PRATIBHA MCKINLEY Encounter No: [id number] : 1935 Primary Insurance: MEDICARE A & B Anticipated DC Date: Planned Disposition: Home with Home Health External Planned Provider: WAITING ON FAMILY CHOICE AND PHYSICIAN ORDER DCP follow-up note: CM MET WITH PT AND DAUGHTER, HENYR, IN ROOM TO DISCUSS DISCHARGE NEEDS AND PLANNING. PT CONFUSED, INITIALLY REPORTS SHE LIVES WITH HER SPOUSE AND CHILDREN; HENRY REPORTS PT'S SPOUSE IS AND ALL CHILDREN GROWN, PT LIVES ALONE. CM DISCUSSED AVAILABILITY OF HOME HEALTH, REHAB SERVICES AND MEDICAL EQUIPMENT. PT REPORTS PLAN TO RETURN HOME. PT LIVES ALONE WITH HER DAUGHTER HENRY WHO LIVES NEXT DOOR ASSISTS WITH MEDICATIONS AND BATHING. PT HAS CANE AND WALKER WITH NO MEDICAL EQUIPMENT PROVIDER PREFERENCE. PT HAS NO OUTSIDE SERVICES ASSISTING IN THE HOME PRIOR TO HOSPITLA STAY. CM DISCUSSED NURSING HOME FACILITY, HOSPICE, HOME HEALTH SERVICES AND MEDICAL EQUIPMENT AVAILABILITY. FAMILY HAS NOT WANT TO DISCUSS HOSPICE, AND IS CONSIDERING PT GOING HOME WITH HOME HEALTH, MAY NEED OXYGEN FOR DISCHARGE. THEY HAVE NO CURRENT PREFERENCES ON PROVIDERS AND WILL DISCUSS THIS WITH FAMILY. CM PROVIDED PROVIDER LISTINGS FOR HOME HEALTH AND MEDICAL EQUIPMENT. CM PROVIDED AND DISCUSSED LIVING WILL INFORMATION, INFORMED OF NOTARY AVAILABILITY. IMPORTANT MESSAGE FROM MEDICARE PROVIDED AND EXPLAINED. CM TO FOLLOW AND ASSIST NEEDED. PT MAY NEED OXYGEN FOR DISCHARGE HOME. PT AND FAMILY ARE PLANNING FOR PT TO GO HOME WITH FAMILY ASSISTANCE AND HOME HEALTH. WAITING ON CHOICE FROM FAMILY FOR HOME HEALTH PROVIDER; CM TO ASSIST WITH PHYSICIAN AGREEMENT AND ORDERS. Edgar Nelson, CASE MANAGEMENT DCP- Discharge Planning Updated by [id number]: Leidy Velázquez on 03/10/19 8:[address] SPOKE WITH PATIENT'S DAUGHTER ABOUT HOSPICE, SHE STATED THAT THEY ARE WAITING TO SPEAK WITH IR ABOUT A CHEMO 1 TIME TREATMENT, BEFORE MAKING THE HOSPICE DECISION. SHE STATED THAT SHE WOULD LIKE TO SEE THE OF HER GREAT GREAT GRANDCHILDREN AND THIS ONE TIME TX COULD RETAIL SECURITY PROFESSIONAL HER UP TO A YEAR. CM WILL WAIT TILL AFTER IR CONSULT TO SEE DC PLAN DCP- Discharge Planning Updated by [id number]: Megha Segura on 03/09/19 6:[address] Visit with family for SEGURA signature. Daughter's had questions regarding home hospice. Verbal information provided. Family states they have some decisions to make. Order pending for HOME HOSPICE. Provided printed information and Patient Choice list for hospices available. DCPIA - Discharge Planning Initial Assessment Updated by [id number]: Edgar Nelson on 03/14/19 1:52 pm * Is the patient Alert and Oriented? No * How many steps to enter\exit or inside your home? * PCP DR. HULL * Pharmacy [facility] IN [place] * Preadmission Environment Home Alone * ADLs Independent * Equipment Cane Walker * Other Equipment NO MEDICAL EQUIPMENT PROVIDER PREFERENCE * List name and contact numbers for known caregivers / representatives who currently or will assist patient after discharge: HENRY MCKINLEY DTR, * Verbal permission to speak to the caregivers and representatives has been obtained from the patient. Yes * Community resources currently utilized None * Please name any agencies selected above. NONE * Additional services required to return to the preadmission environment? Yes * Can the patient safely return to the preadmission environment? Yes * Has this patient been hospitalized within the prior 30 days at any hospital? No Coverage Notice Reviewer: [id number] - Megha Segura Notice Issued Date-Time: 03/09/2019 16:45 Notice Type: Medicare Outpatient Observation Notice Notice Delivered To: Family Member Relationship to Patient: Daughter Manager Agriculture Name: Pratibha Burt Delivery Method: - Nani Days: Prior Verbal Notification: Recipient Understood Notice: Recipient Signature: Med Rec Note Co-signed by Attending: Coverage Notice Comment: Reviewer: CHEVY Nelson Notice Issued Date-Time: 03/13/2019 12:09 Notice Type: IM Discharge Notice Notice Delivered To: Family Member Relationship to Patient: Daughter Manager Agriculture Name: HENRY MCKINLEY Delivery Method: HAND - Hand Delivered Nani Days: Prior Verbal Notification: Recipient Understood Notice: Yes Recipient Signature: Yes Med Rec Note Co-signed by Attending: Coverage Notice Comment: Reviewer: CHEVY Nelson Notice Issued Date-Time: 03/14/2019 12:09 Notice Type: Patient Choice Letter Notice Delivered To: Family Member Relationship to Patient: Daughter Manager Agriculture Name: HENRY MCKINLEY Delivery Method: HAND - Hand Delivered Nani Days: Prior Verbal Notification: Recipient Understood Notice: Recipient Signature: Med Rec Note Co-signed by Attending: Coverage Notice Comment: WAITING CHOICE FOR DME AND HOME HEALTH Reviewer: CHEVY Nelson Notice Issued Date-Time: 03/17/2019 13:15 Notice Type: IM Discharge Notice Notice Delivered To: Family Member Relationship to Patient: Daughter Manager Agriculture Name: LEONILA GUTIÉRREZ Delivery Method: HAND - Hand Delivered Nani Days: Prior Verbal Notification: Recipient Understood Notice: Yes Recipient Signature: Yes Med Rec Note Co-signed by Attending: Coverage Notice Comment: Reviewer: CHEVY Nelson Notice Issued Date-Time: 03/17/2019 13:15 Notice Type: Patient Choice Letter Notice Delivered To: Family Member Relationship to Patient: Daughter Manager Agriculture Name: LEONILA GUTIÉRREZ Delivery Method: HAND - Hand Delivered Nani Days: Prior Verbal Notification: Recipient Understood Notice: Yes Recipient Signature: Yes Med Rec Note Co-signed by Attending: Coverage Notice Comment: [facility] - NO PREFERENCE [facility] - NO PREFERENCE Reviewer: CHEVY Nelson Notice Issued Date-Time: 03/20/2019 15:50 Notice Type: IM Discharge Notice Notice Delivered To: Family Member Relationship to Patient: Daughter Manager Agriculture Name: leonila gutiérrez Delivery Method: HAND - Hand Delivered Nani Days: Prior Verbal Notification: Recipient Understood Notice: Yes Recipient Signature: Yes Med Rec Note Co-signed by Attending: Coverage Notice Comment: Last DP export: 12/9/19 1:34 p Patient Name: PRATIBHA MCKINLEY Page [id number] at 0952 All edits/amendments must be made on the electronic document DICTATION DATE: 03/21/19950 PLATFORM LOADER: SAIGE 03/21/19950 RPT#: [id number] DC DATE: STATUS: ADM IN [facility] [address] [place] [address] END OF REPORT
--- NOTE | 2019-03-21 13:04 | NUR ---
Nutrition Follow-up: Daughter reports pt not eating much but is drinking Ensure. Likes yogurt. Continues to have diarrhea. Diet: Cardiac, Ensure TID Wt: 148# (up from 146# on 03/15) Labs noted: Ca 7.9, Alb 1.9 Meds noted: Megace, Prednisone, Imodium, Lasix -Continue current diet/supplement as tolerated. -Add yogurt with meals. -RD following.
[2019-03-21 15:00] VITALS: BP 136/66
[2019-03-21] MEDS ORDERED: BETAPACE 80 MG80 MG PO (15:48)
--- NOTE | 2019-03-21 16:59 | NUR ---
PATIENT IS BEING DISCHARGED. DISCHARGE ORDERS ACKNOWLEDGED. DISCHARGE TEACHING COMPLETED AND PAPERS SIGNED.
--- NOTE | 2019-03-21 17:27 | NUR ---
IV REMOVED WITH CATHETER INTACT. PATIENT WENT DOWNSTAIRS WITH FAMILY MEMBER. SHE WENT DOWNSTAIRS IN WHEELCHAIR. ALL DISCHARGE TEACHING HAS BEEN DONE AND PAPERS SIGNED. ALL PATIENT BELONGINGS REMOVED FROM THE ROOM.
--- NOTE | 2019-03-23 14:18 | MORECARE ---
CASE MANAGEMENT DISCHARGE SUMMARY PATIENT: PRATIBHA MCKINLEY UNIT: [id number] ADM DATE: 03/10/19 AGE: 83 : 34 SEX: F ROOM/BED: D.2286 AUTHOR: COY DENTON PHYSICIAN: REFERRING PHYSICIAN: MIRIAM WARREN MD DATE OF SERVICE: 03/23/19 Discharge Plan Patient Name: PRATIBHA MCKINLEY Facility: [facility]:[place] : 1935 Planned Disposition: Home with Home Health Anticipated Discharge Date: 03/21/19 Discharge Date: 03/21/2019 Expected LOS: 11 Initial Reviewer: [email or web address] Initial Review Date: 03/09/2019 Generated: 03/23/19 3:17 pm DCP- Discharge Planning Updated by [id number]: Edgar Nelson on 03/21/19 8:[address] Patient Name: PRATIBHA MCKINLEY Admission Status: Elective Accout number: [id number] Admission Date: 03-10-2019 : 1935 Admission Diagnosis:LIVER CELL CARCINOMA Attending: STEVE Current LOS: 11 Anticipated DC Date: 03-21-2019 Planned Disposition: Home with Home Health Primary Insurance: MEDICARE A & B PLANNED EXTERANAL PROVIDER: [facility] LATE ENTRY FROM 03-20-19, 1550 HOURS Discharge Planning Comments: CM MET WITH PT AND DAUGHTER IN ROOM TO DISCUSS NEED OF ZYVOX, PT NOR DAUGHTER HAVE PT'S PRESCRIPTION DRUG CARD FOR CM TO CHECK TO SEE IF IT IS COVERED, HOW MUCH IT COSTS OR IF IT NEEDS PRIOR AUTHORIZATION. IMPORTANT MESSAGE FROM MEDICARE PROVIDED AND EXPLAINED. RIGO PEÑA CALLED PT'S PHARMCY, MEDICATION IN STOCK, DOES NOT REQUIRE PRIOR AUTHORIZATION, COSTS $152.00. PT NOTIFIED, CM WROTE INFORMATION ON DRY ERASE BOARD IN ROOM FAMILY WAS NOT PRESENT. CM TO ARRANGE [facility] WITH PHYSICIAN AGREEMENT AND ORDERS. CM TO ARRANGE OXYGEN IF NEEDED WITH [facility] WHEN QUALIFYING OXYGEN TESTING AND PHYSICIAN ORDERS. Edgar Nelson CASE MANAGEMENT DCP- Discharge Planning Updated by [id number]: Edgar Nelson on 03/17/19 1:[address] Patient Name: PRATIBHA MCKINLEY Encounter No: [id number] : 1935 Primary Insurance: MEDICARE A & B Anticipated DC Date: Planned Disposition: Home with Home Health External Planned Provider: [facility] DCP follow-up note: CM MET WITH PT AND DAUGHTER, LEONILA GUTIÉRREZ, IN ROOM AT FAMILY REQUEST. LEONILA INFORMED CM THAT THEY HAVE A PHARMACISTS IN THE FAMILY AND THINK THE STERIODS ARE AFFECTING PT'S HEAR RATE, WANT PT OFF THE STEROIDS JESUS. THEY WANT THE CARDIOVERSION JESUS. THEY WANT PT DISCHARGED HOME JESUS, TOMORROW IF POSSIBLE. CM NOTIFIED RAISA BARAHONA OF FAMILY REQUESTS. LEONILA DOES WANT HOME HEALTH, CHOICE SIGNED FOR [facility] OR NO PREFERENCE FOR HOME HEALTH PROVIDER; CHOICE SIGNED FOR [facility] OR NO PREFERENCE ON PROVIDER FOR OXYGEN SERVICE. IMPORTANT MESSAGE FROM MEDICARE PROVIDED AND EXPLAINED. CM CALLED [facility], , SPOKE TO LEILANI AND PROVIDED HOME HEALTH REFERRAL. CM FAXED REFERRAL TO [facility] AT [phone]. CM TO ARRANGE [facility] WITH PHYSICIAN AGREEMENT AND ORDERS. CM TO ARRANGE OXYGEN IF NEEDED WITH [facility] WHEN QUALIFYING OXYGEN TESTING AND PHYSICIAN ORDERS. Edgar Nelson, CASE MANAGEMENT DCP- Discharge Planning Updated by [id number]: Edgar Nelson on 03/14/19 12:[address] Patient Name: PRATIBHA MCKINLEY Encounter No: [id number] : 1935 Primary Insurance: MEDICARE A & B Anticipated DC Date: Planned Disposition: Home with Home Health External Planned Provider: WAITING ON FAMILY CHOICE AND PHYSICIAN ORDER DCP follow-up note: CM MET WITH PT AND DAUGHTER, HENRY, IN ROOM TO DISCUSS DISCHARGE NEEDS AND PLANNING. PT CONFUSED, INITIALLY REPORTS SHE LIVES WITH HER SPOUSE AND CHILDREN; HENRY REPORTS PT'S SPOUSE IS AND ALL CHILDREN GROWN, PT LIVES ALONE. CM DISCUSSED AVAILABILITY OF HOME HEALTH, REHAB SERVICES AND MEDICAL EQUIPMENT. PT REPORTS PLAN TO RETURN HOME. PT LIVES ALONE WITH HER DAUGHTER HENRY WHO LIVES NEXT DOOR ASSISTS WITH MEDICATIONS AND BATHING. PT HAS CANE AND WALKER WITH NO MEDICAL EQUIPMENT PROVIDER PREFERENCE. PT HAS NO OUTSIDE SERVICES ASSISTING IN THE HOME PRIOR TO HOSPITLA STAY. CM DISCUSSED PENITENTIARY FACILITY, HOSPICE, HOME HEALTH SERVICES AND MEDICAL EQUIPMENT AVAILABILITY. FAMILY HAS NOT WANT TO DISCUSS HOSPICE, AND IS CONSIDERING PT GOING HOME WITH HOME HEALTH, MAY NEED OXYGEN FOR DISCHARGE. THEY HAVE NO CURRENT PREFERENCES ON PROVIDERS AND WILL DISCUSS THIS WITH FAMILY. CM PROVIDED PROVIDER LISTINGS FOR HOME HEALTH AND MEDICAL EQUIPMENT. CM PROVIDED AND DISCUSSED LIVING WILL INFORMATION, INFORMED OF NOTARY AVAILABILITY. IMPORTANT MESSAGE FROM MEDICARE PROVIDED AND EXPLAINED. CM TO FOLLOW AND ASSIST NEEDED. PT MAY NEED OXYGEN FOR DISCHARGE HOME. PT AND FAMILY ARE PLANNING FOR PT TO GO HOME WITH FAMILY ASSISTANCE AND HOME HEALTH. WAITING ON CHOICE FROM FAMILY FOR HOME HEALTH PROVIDER; CM TO ASSIST WITH PHYSICIAN AGREEMENT AND ORDERS. Edgar Nelson, CASE MANAGEMENT DCP- Discharge Planning Updated by [id number]: Leidy Velázquez on 03/10/19 8:[address] SPOKE WITH PATIENT'S DAUGHTER ABOUT HOSPICE, SHE STATED THAT THEY ARE WAITING TO SPEAK WITH IR ABOUT A CHEMO 1 TIME TREATMENT, BEFORE MAKING THE HOSPICE DECISION. SHE STATED THAT SHE WOULD LIKE TO SEE THE OF HER GREAT GREAT GRANDCHILDREN AND THIS ONE TIME [place] COULD PARKING REGULATION ENFORCEMENT OFFICER HER UP TO A YEAR. CM WILL WAIT TILL AFTER IR CONSULT TO SEE DC PLAN DCP- Discharge Planning Updated by [id number]: Megha Segura on 03/09/19 6:[address] Visit with family for SEGURA signature. Daughter's had questions regarding home hospice. Verbal information provided. Family states they have some decisions to make. Order pending for HOME HOSPICE. Provided printed information and Patient Choice list for hospices available. DCPIA - Discharge Planning Initial Assessment Updated by [id number]: Edgar Nelson on 03/14/19 1:52 pm * Is the patient Alert and Oriented? No * How many steps to enter\exit or inside your home? * PCP DR. HULL * Pharmacy [facility] * Preadmission Environment Home Alone * ADLs Independent * Equipment Cane Walker * Other Equipment NO MEDICAL EQUIPMENT PROVIDER PREFERENCE * List name and contact numbers for known caregivers / representatives who currently or will assist patient after discharge: HENRY MCKINLEY DTR, * Verbal permission to speak to the caregivers and representatives has been obtained from the patient. Yes * Community resources currently utilized None * Please name any agencies selected above. NONE * Additional services required to return to the preadmission environment? Yes * Can the patient safely return to the preadmission environment? Yes * Has this patient been hospitalized within the prior 30 days at any hospital? No Coverage Notice Reviewer: [id number] - Megha Segura Notice Issued Date-Time: 03/09/2019 16:45 Notice Type: Medicare Outpatient Observation Notice Notice Delivered To: Family Member Relationship to Patient: Daughter Nougat Candy Maker Helper Name: Pratibha Burt Delivery Method: - Nani Days: Prior Verbal Notification: Recipient Understood Notice: Recipient Signature: Med Rec Note Co-signed by Attending: Coverage Notice Comment: Reviewer: CHEVY Nelson Notice Issued Date-Time: 03/13/2019 12:09 Notice Type: IM Discharge Notice Notice Delivered To: Family Member Relationship to Patient: Daughter Nougat Candy Maker Helper Name: HENRY MCKINLEY Delivery Method: HAND - Hand Delivered Nani Days: Prior Verbal Notification: Recipient Understood Notice: Yes Recipient Signature: Yes Med Rec Note Co-signed by Attending: Coverage Notice Comment: Reviewer: CHEVY Nelson Notice Issued Date-Time: 03/14/2019 12:09 Notice Type: Patient Choice Letter Notice Delivered To: Family Member Relationship to Patient: Daughter Nougat Candy Maker Helper Name: HENRY MCKINLEY Delivery Method: HAND - Hand Delivered Nani Days: Prior Verbal Notification: Recipient Understood Notice: Recipient Signature: Med Rec Note Co-signed by Attending: Coverage Notice Comment: WAITING CHOICE FOR DME AND HOME HEALTH Reviewer: CHEVY Nelson Notice Issued Date-Time: 03/17/2019 13:15 Notice Type: IM Discharge Notice Notice Delivered To: Family Member Relationship to Patient: Daughter Nougat Candy Maker Helper Name: LEONILA GUTIÉRREZ Delivery Method: HAND - Hand Delivered Nani Days: Prior Verbal Notification: Recipient Understood Notice: Yes Recipient Signature: Yes Med Rec Note Co-signed by Attending: Coverage Notice Comment: Reviewer: CHEVY Nelson Notice Issued Date-Time: 03/17/2019 13:15 Notice Type: Patient Choice Letter Notice Delivered To: Family Member Relationship to Patient: Daughter Nougat Candy Maker Helper Name: LEONILA GUTIÉRREZ Delivery Method: HAND - Hand Delivered Nani Days: Prior Verbal Notification: Recipient Understood Notice: Yes Recipient Signature: Yes Med Rec Note Co-signed by Attending: Coverage Notice Comment: [facility] - NO PREFERENCE [facility] - NO PREFERENCE Reviewer: CHEVY Nelson Notice Issued Date-Time: 03/20/2019 15:50 Notice Type: IM Discharge Notice Notice Delivered To: Family Member Relationship to Patient: Daughter Nougat Candy Maker Helper Name: leonila gutiérrez Delivery Method: HAND - Hand Delivered Nani Days: Prior Verbal Notification: Recipient Understood Notice: Yes Recipient Signature: Yes Med Rec Note Co-signed by Attending: Coverage Notice Comment: Last DP export: 03/21/19 8:52 Patient Name: PRATIBHA MCKINLEY Page [id number] at 1418 All edits/amendments must be made on the electronic document DICTATION DATE: 03/23/191416 RETAIL SPECIAL EVENT ASSOCIATE: SAIGE 03/23/191416 RPT#: [id number] DC DATE:03/21/19 STATUS: DIS IN [facility] [address] [place] [address] END OF REPORT
== END 2019-03-21 17:28 | disposition home health service (06) | DRG 435 ==
LOC: D.ER 02:55 → D.MS 06:43 → OBSVTIME 06:59 → D.M2 03-10 12:35 → D.MS 03-10 12:35 → D.M2 03-12 06:11
PROVIDERS: Emergency Medicine; Family Medicine; General Practice; Internal Medicine Nephrology; Radiology Diagnostic Radiology; Specialist; ADMIT Family Medicine; ATTEND Family Medicine
DX: C22.0 Liver cell carcinoma (principal); E43 Unspecified severe protein-calorie malnutrition; J18.9 Pneumonia, unspecified organism; N39.0 Urinary tract infection, site not specified; I10 Essential (primary) hypertension; I48.91 Unspecified atrial fibrillation; E86.9 Volume depletion, unspecified; N20.0 Calculus of kidney; I25.10 Atherosclerotic heart disease of native coronary artery without angina pectoris; Z68.23 Body mass index [BMI] 23.0-23.9, adult